=== PATIENT | female | born 1960 | race African-American/Black ===

== ENCOUNTER 2017-03-29 09:03 | Emergency (ER) | payer OTHER ==
[2017-03-29] MEDS ORDERED: DEXAMETHASONE SOD PHOSPHATE 10 MG/1 ML VIAL ONE (09:16)
[2017-03-29] MEDS ORDERED: ALBUTEROL SO4 2.5/IPRATROPIUM 0.5 INH SOL 3 ML VIAL.NEB. NEB ONE ×3 (09:17→09:53)
--- NOTE | 2017-03-29 09:36 | PDOC ---
History of Present Illness - General History Source: Patient Exam Limitations: No Limitations - History of Present Illness Initial Comments: 03/29/17 09:43 Patient is a 56 year old female with a significant past medical history of insulin-dependent diabetes, high blood pressure, CHF(intubated x2), asthma, gall bladder CA who presents to the ED via EMS with complaint of shortness of breath. Patient reports cough with white sputum and difficulty breathing for 3 days since she ran out of her asthma medication. Patient states that she takes prednisone 20 mg daily and lasix but she has not taken it for 3 days. She also reports bilateral swelling. Patient was given a nebs, 10mg of decadron and sublingual nitro and nitro patch as per EMS. She denies any fever or chills. PCP - [facility] <Merari Ann - Last Filed: 03/29/17 09:43> <Concetta Gallardo - Last Filed: 03/29/17 11:32> - General Chief Complaint: Respiratory Stated Complaint: DIFFICLTY BREATHING Time Seen by Provider: 03/29/17 09:22 Past History <Merari Ann - Last Filed: 03/29/17 09:43> - Past Medical History Anemia: No Asthma: Yes Cancer: Yes (H/O GALLBLADDER: 2013) Cardiac Disorders: No CVA: No COPD: No Dementia: No Diabetes: Yes GI Disorders: No Disorders: No HTN: Yes Hypercholesterolemia: No Liver Disease: No Suicide Attempt (Hx): No Seizures: No Thyroid Disease: No - Surgical History Abdominal Surgery: Yes Appendectomy: No Cardiac Surgery: No Cholecystectomy: Yes Lung Surgery: No Neurologic Surgery: No Orthopedic Surgery: Yes - Immunization History Immunization Up to Date: Yes - Psycho/Social/Smoking Cessation Hx Anxiety: Yes Suicidal Ideation: No Smoking Status: Yes Smoking History: Never smoked Number of Cigarettes Smoked Daily: 0 Hx Alcohol Use: No Drug/Substance Use Hx: No Substance Use Type: None <Concetta Gallardo - Last Filed: 03/29/17 11:32> - Past Medical History Allergies/Adverse Reactions: Allergies Allergy/AdvReac Type Severity Reaction Status Date / Time No Known Allergies Allergy Verified 06/05/14 17:41 Home Medications: Ambulatory Orders Metformin HCl [Glucophage] 1,000 mg PO BID 11/10/13 Omeprazole [Prilosec (RX)] 20 mg PO DAILY 11/10/13 Albuterol 0.083% Nebulizer Chica [Ventolin 0.083% Nebulizer Soln -] 1 neb NEB Q6H #100 vial 11/05/14 Albuterol Sulfate Inhaler - [Ventolin HFA Inhaler -] 1 - 2 inh PO Q4H PRN #1 inhaler 11/05/14 Amlodipine Besylate [Norvasc -] 5 mg PO DAILY #30 tablet 11/05/14 Furosemide [Lasix -] 40 mg PO DAILY 11/05/14 Prednisone [Deltasone -] 10 mg PO DAILY #20 tablet 11/05/14 Salmeterol/Fluticasone [Advair 100Mcg/50Mcg -] 1 inh IH DAILY #1 inhaler Albuterol 0.083% Nebulizer Chica [Ventolin 0.083% Nebulizer Soln -] 1 neb NEB Q6H PRN #100 vial 03/29/17 Amlodipine Besylate 5 mg PO DAILY #14 tablet 03/29/17 Furosemide [Lasix] 20 mg PO BID #14 tablet MDD 2 03/29/17 Hydrochlorothiazide 25 mg PO DAILY #14 tablet 03/29/17 Insulin Glargine,Hum.rec.anlog [Lantus Solostar PEN -] 40 units SQ HS #14 pen Metformin HCl [Glucophage] 1,000 mg PO BID #28 tablet 03/29/17 Prednisone [Deltasone -] 40 mg PO DAILY #7 tablet 03/29/17 Review of Systems - Review of Systems Able to Perform ROS?: Yes Comments:: 03/29/17 09:44 GENERAL/CONSTITUTIONAL: No fever or chills. No weakness. HEAD, EYES, EARS, NOSE AND THROAT: No change in vision. No ear pain or discharge. No sore throat. GASTROINTESTINAL: No nausea, vomiting, diarrhea or constipation. GENITOURINARY: No dysuria, frequency, or change in urination. CARDIOVASCULAR: No chest pain. RESPIRATORY: +cough, +SOB No wheezing, or hemoptysis. MUSCULOSKELETAL:+bilateral LE edema. No joint or muscle pain. No neck or back pain. SKIN: No rash NEUROLOGIC: No headache, vertigo, loss of consciousness, or change in strength/ sensation. ENDOCRINE: No increased thirst. No abnormal weight change. HEMATOLOGIC/LYMPHATIC: No anemia, easy bleeding, or history of blood clots. ALLERGIC/IMMUNOLOGIC: No hives or skin allergy. <Merari Ann - Last Filed: 03/29/17 09:43> *Physical Exam - Physical Exam Comments: 03/29/17 09:45 GENERAL: Awake, alert, and fully oriented, in no acute distress HEAD: No signs of trauma EYES: PERRLA, EOMI, sclera anicteric, conjunctiva clear ENT: Auricles normal inspection, nares patent, Moist mucosa NECK: Normal ROM, supple, no lymphadenopathy, JVD, or masses LUNGS: (+)Bilateral wheezing throughout , normal effort. No crackles HEART: Regular rate and rhythm, normal S1 and S2, no murmurs, rubs or gallops ABDOMEN: Soft, nontender, normoactive bowel sounds. No guarding, no rebound. No masses EXTREMITIES: (+)bilateral lower extremity nonpitting edema. Normal range of motion. No clubbing or cyanosis. No cords, erythema, or tenderness NEUROLOGICAL: Normal speech SKIN: Warm, Dry, normal turgor, no rashes or lesions noted. <Merari Ann - Last Filed: 03/29/17 09:43> ED Treatment Course - LABORATORY CBC & Chemistry Diagram: 03/29/17 09:30 03/29/17 09:30 <Concetta Gallardo - Last Filed: 03/29/17 11:32> Medical Decision Making - Medical Decision Making 03/29/17 09:32 56 yo F with h/o asthma CHF HTH, ran out of meds 3 days ago, here wtih c/o sob. was picke up by EMS given nebs , decadron 10mg, sublingual nitro, and nitro patch. c/o sob wheezing and sob. states she has had to have thoracentesis in the past. no f/c. cough productive white phlegm. no n/v did have chest pressure this am.. also c/o worseign bilat leg swelling recently, improved with leg elevation. on exam awake lungs bilat wheezing throught, normal effort. heart RRR no mrg. abd soft NT. ext nonpitting edema bilat. 2+ dp/ pt. differential : pna, chf, acs, asthma exacerbation. plan ekg labs cxr negs steroids already given. asa. possible lasix. admit estelita <Concetta Gallardo - Last Filed: 03/29/17 11:32> *DC/Admit/Observation/Transfer - Attestations Scribe Attestion: 03/29/17 09:47 Documentation prepared by JEANINE Khanna, acting as medical secretary teacher for Concetta Gallardo MD. <Merari Ann - Last Filed: 03/29/17 09:43> - Discharge Dispostion Admit: No <Concetta Gallardo - Last Filed: 03/29/17 11:32> Diagnosis at time of Disposition: Shortness of breath, Acute kidney injury - Discharge Dispostion Disposition: HOME Condition at time of disposition: Guarded - Prescriptions Prescriptions: Amlodipine Besylate 5 mg PO DAILY #14 tablet Prednisone [Deltasone -] 40 mg PO DAILY #7 tablet Metformin HCl [Glucophage] 1,000 mg PO BID #28 tablet Hydrochlorothiazide 25 mg PO DAILY #14 tablet Insulin Glargine,Hum.rec.anlog [Lantus Solostar PEN -] 40 units SQ HS #14 pen Furosemide [Lasix] 20 mg PO BID #14 tablet MDD 2 Albuterol 0.083% Nebulizer Chica [Ventolin 0.083% Nebulizer Soln -] 1 neb NEB Q6H PRN #100 vial PRN Reason: Wheezing - Referrals Referrals: Francois Elder [Primary Care Provider] - - Patient Instructions Printed Discharge Instructions: Asthma -- Adult Additional Instructions: understand you are leaving against medical advice. you are encouraged to return for worsenign symtpoms you need to take steroids prednisone 40 mg daily starting tomorrow for 7 days. then you will resume your baseline 20 mg daily. you should use albuterol 2 puffs every 4 hours as needed for wheezing or cough. follow up wtih your regular doctor.
[2017-03-29] MEDS ORDERED: ASPIRIN 81 MG CHEWABLE TABLETS PO ONE (09:37)
[2017-03-29 09:47] VITALS: TEMP 98; BMI 32.9
[2017-03-29] MEDS ORDERED: ASPIRIN 81 MG CHEWABLE TABLETS ONE (09:51)
[2017-03-29 09:56] LABS: BASOPHIL 1.2 % (0-2.0); EOSINOPHIL 12.2 % (0-4.5); MCH 28.2 pg (25.7-33.7); MCHC 32.6 g/dl (32.0-36.0); MEAN CELL VOLUME 86.4 fl (80-96); MEAN PLT VOLUME 9.6 fl (7.5-11.1); NEUTROPHILS 63.2 % (42.8-82.8); PLATELET COUNT 63 K/MM3 (134-434); RDW 16.2 % (11.6-15.6); WHITE BLOOD COUNT 6.7 K/mm3 (4.0-10.0)
[2017-03-29 10:20] LABS: ALBUMIN 1.9 g/dl (3.4-5.0); ANION GAP 7 (8-16); CALCIUM 8.1 mg/dL (8.5-10.1); CO2 25 mmol/L (21-32); CREATININE 2.8 mg/dL (0.55-1.02); GLUCOSE,RANDOM 107 mg/dL (74-106); SGOT/AST 46 U/L (15-37); SGPT/ALT 30 U/L (12-78); TOT PROT 6.1 g/dl (6.4-8.2)
[2017-03-29 10:22] LABS: TROPONIN I 0.11 ng/ml (0.00-0.05)
[2017-03-29 10:29] LABS: ALK PHOS 185 U/L (45-117)
[2017-03-29 10:31] LABS: BILIRUBIN,TOTAL 0.4 mg/dL (0.2-1.0)
[2017-03-29] MEDS ORDERED: FUROSEMIDE 40 MG/4 ML INJECTABLE VIAL IVPUSH ONE ×2 (10:40→10:41)
[2017-03-29] MEDS ORDERED: FUROSEMIDE 40 MG/4 ML INJECTABLE VIAL ONE (10:58)
[2017-03-29 11:06] VITALS: BP 169/86; PULSE 71
[2017-03-29] MEDS ORDERED: amLODIPine BESYLATE 5 MG TABLET (FP) PO ONE (11:13)
[2017-03-29] MEDS ORDERED: HYDROCHLOROTHIAZIDE 25 MG TABLET (FP) PO ONE (11:14)
[2017-03-29] MEDS ORDERED: amLODIPine BESYLATE 5 MG TABLET (FP) ONE (11:20)
[2017-03-29] MEDS ORDERED: HYDROCHLOROTHIAZIDE 25 MG TABLET (FP) ONE (11:21)
--- NOTE | 2017-04-04 16:39 | EKG ---
Test Reason : Blood Pressure : / mmHG Vent. Rate : 068 BPM Atrial Rate : 068 BPM P-R Int : 188 ms QRS Dur : 088 ms QT Int : 412 ms P-R-T Axes : 019 -24 087 degrees QTc Int : 438 ms SINUS RHYTHM WTHFREQUENT SUPRAVENTRICULAR PREMATURE BEATS LAD BORDERLINE 1ST DEGREE AV BLOCK NONSPECIFIC ST AND T WAVE ABNORMALITY ABNORMAL ECG WHEN COMPARED WITH ECG OF 05-JUN-2014 APPEARANCE OF SPBs CORELATE CLINICALLY Confirmed by GAVIN LOMAX MD ([id number]) on 04/04/2017 4:38:37 PM Referred By: Confirmed By:GAVIN LOMAX MD
== END 2017-03-29 11:33 | disposition home or self-care (01) ==
LOC: JER 09:03
PROC: 3E0F7GC Introduction of Other Therapeutic Substance into Respiratory Tract, Via Natural or Artificial Opening (ICD-10-PCS; principal; 2017-03-29)
PROC: 3E033GC Introduction of Other Therapeutic Substance into Peripheral Vein, Percutaneous Approach (ICD-10-PCS; 2017-03-29)
DX: S37.009A Unspecified injury of unspecified kidney, initial encounter (principal); R06.02 Shortness of breath; I10 Essential (primary) hypertension; J45.909 Unspecified asthma, uncomplicated; E11.9 Type 2 diabetes mellitus without complications; F41.9 Anxiety disorder, unspecified; X58.XXXA Exposure to other specified factors, initial encounter; Y93.9 Activity, unspecified; Y92.9 Unspecified place or not applicable
CPT/HCPCS: 36415; 71010-TC; 80053; 82550; 83880; 84484; 85025; 93005; 93010; 94640; 96374; 99284-25

== ENCOUNTER 2017-10-03 21:53 | Inpatient (IN) | payer OTHER ==
--- NOTE | 2017-10-03 22:01 | PDOC ---
Rapid Medical Evaluation Chief Complaint: Shortness of Breath Time Seen by Provider: 10/03/17 21:57 Medical Evaluation: Allergies Allergy/AdvReac Type Severity Reaction Status Date / Time No Known Allergies Allergy Verified 10/03/17 21:56 10/03/17 21:58 EMS treatment ; 10 mg Deacdron, duoneb x 1 CC; progressive worsening respiratory distress and wheezing. PE; patient alert Wheezing. + shortness of breath PMHX; CHF, Hypertension, asthma, 2 intubation for asthma Plan: patient to ED for management of respiratory distress.
[2017-10-03] MEDS ORDERED: methylPREDNISolone NA SUCC 125 MG/2 ML VIAL IVPB ONE (22:17)
--- NOTE | 2017-10-03 22:17 | PDOC ---
History of Present Illness - History of Present Illness Initial Comments: 10/03/17 22:43 The patient is a 57 year old female who was BIBA, with a significant past medical history of Cholecystectomy, chemotherapy for gallbladder cancer. thoracentesis for large pleural effusions, asthma, diabetes, HTN, and CHF who presents to the ED for worsening breathing for 1 week. She denies recent fevers, chills, headache or dizziness. She denies recent nausea, vomit, diarrhea or constipation. She denies recent dysuria, frequency, urgency or hematuria. She denies recent chest pain. Allergies: NKA Past surgical history: Cholecystectomy, Thoracentesis for large pleural effusions Social history: Nonsmoker. Denies EtOH use and recreational drug use. Primary Care Physician: Roxana Roberts <Gaby Jane - Last Filed: 10/03/17 23:09> <Zaida Buitrago - Last Filed: 10/04/17 02:06> - General Chief Complaint: Shortness of Breath Stated Complaint: SHORTNESS OF BREATH Time Seen by Provider: 10/03/17 21:57 Past History <Gaby Jane - Last Filed: 10/03/17 23:09> - Past Medical History Anemia: No Asthma: Yes Cancer: Yes (H/O GALLBLADDER: 2013) Cardiac Disorders: No CVA: No COPD: No Dementia: No Diabetes: Yes GI Disorders: No Disorders: No HTN: Yes Hypercholesterolemia: No Liver Disease: No Seizures: No Thyroid Disease: No - Surgical History Abdominal Surgery: Yes Appendectomy: No Cardiac Surgery: No Cholecystectomy: Yes Lung Surgery: No Neurologic Surgery: No Orthopedic Surgery: Yes - Immunization History Immunization Up to Date: Yes - Suicide/Smoking/Psychosocial Hx Smoking Status: Yes Smoking History: Never smoked Have you smoked in the past 12 months: No Number of Cigarettes Smoked Daily: 0 Hx Alcohol Use: No Drug/Substance Use Hx: No Substance Use Type: None <Zaida Buitrago - Last Filed: 10/04/17 02:06> - Past Medical History Allergies/Adverse Reactions: Allergies Allergy/AdvReac Type Severity Reaction Status Date / Time No Known Allergies Allergy Verified 10/03/17 21:56 Home Medications: Ambulatory Orders Metformin HCl [Glucophage] 1,000 mg PO BID 11/10/13 Omeprazole [Prilosec (RX)] 20 mg PO DAILY 11/10/13 Albuterol 0.083% Nebulizer Chica [Ventolin 0.083% Nebulizer Soln -] 1 neb NEB Q6H #100 vial 11/05/14 Albuterol Sulfate Inhaler - [Ventolin HFA Inhaler -] 1 - 2 inh PO Q4H PRN #1 inhaler 11/05/14 Amlodipine Besylate [Norvasc -] 5 mg PO DAILY #30 tablet 11/05/14 Furosemide [Lasix -] 40 mg PO DAILY 11/05/14 Prednisone [Deltasone -] 10 mg PO DAILY #20 tablet 11/05/14 Salmeterol/Fluticasone [Advair 100Mcg/50Mcg -] 1 inh IH DAILY #1 inhaler Albuterol 0.083% Nebulizer Chica [Ventolin 0.083% Nebulizer Soln -] 1 neb NEB Q6H PRN #100 vial 03/29/17 Amlodipine Besylate 5 mg PO DAILY #14 tablet 03/29/17 Furosemide [Lasix] 20 mg PO BID #14 tablet MDD 2 03/29/17 Hydrochlorothiazide 25 mg PO DAILY #14 tablet 03/29/17 Insulin Glargine,Hum.rec.anlog [Lantus Solostar PEN -] 40 units SQ HS #14 pen Metformin HCl [Glucophage] 1,000 mg PO BID #28 tablet 03/29/17 Prednisone [Deltasone -] 40 mg PO DAILY #7 tablet 03/29/17 Review of Systems - Review of Systems Comments:: 10/03/17 22:59 CONSTITUTIONAL: Absent: fever, no chills, no fatigue EYES: Absent: visual changes ENT: Absent: ear pain, no sore throat CARDIOVASCULAR: Absent: chest pain, no palpitations RESPIRATORY: Presnet: SOB, wheezing, cough. GI: Absent: abdominal pain, no nausea, no vomiting, no constipation, no diarrhea GENITOURINARY: Absent: dysuria, no frequency, no hematuria MUSCULOSKELETAL: Absent: back pain, no arthralgia, no myalgia SKIN: Absent: rash NEURO: Absent: headache <Gaby Jane - Last Filed: 10/03/17 23:09> *Physical Exam - Vital Signs Last Vital Signs Temp Pulse Resp BP Pulse Ox 98.5 F 85 24 137/70 99 10/03/17 21:56 10/03/17 21:56 10/03/17 21:56 10/03/17 21:56 10/03/17 21:56 - Physical Exam Comments: 10/03/17 23:00 Scattered wheexing. Moving air weel No piting edema, no chronic venous satis Moving all extremities. Able to participate in ROS. Increased coughing adn wheeezing if 1 weel GENERAL: Well-appearing, well-nourished. No apparent distress. HEENT: Normocephalic, atraumatic. PERRL, EOM intact. CARDIOVASCULAR: Normal S1, S2. Regular rate and rhythm. PULMONARY: Scattered wheezing. Moving air well. Increased coughing and wheezing. ABDOMEN: Soft, non-distended, non-tender. EXTREMITIES: Moving all extremities. Normal ROM in all four extremities. No gross deformities. SKIN: No pitting edema. No chronic venous statis. Warm, dry. No rash NEUROLOGICAL: No focal neurological deficits. <Gaby Jane - Last Filed: 10/03/17 23:09> - Vital Signs Last Vital Signs Temp Pulse Resp BP Pulse Ox 98.5 F 85 24 137/70 99 10/03/17 21:56 10/03/17 21:56 10/03/17 21:56 10/03/17 21:56 10/03/17 21:56 <Zaida Buitrago - Last Filed: 10/04/17 02:06> ED Treatment Course - LABORATORY CBC & Chemistry Diagram: 10/03/17 23:12 10/03/17 23:12 <Zaida Buitrago - Last Filed: 10/04/17 02:06> *DC/Admit/Observation/Transfer - Attestations Scribe Attestion: 10/03/17 23:10 Documentation prepared by Gaby Jane, acting as medical assistant dermatology for Zaida Buitrago MD. <Gaby Jane - Last Filed: 10/03/17 23:09> - Discharge Dispostion Admit: Yes <Zaida Buitrago - Last Filed: 10/04/17 02:06> Diagnosis at time of Disposition: Shortness of breath Asthma exacerbation Qualifiers: Asthma severity: moderate Asthma persistence: persistent Qualified Code(s): J45.41 - Moderate persistent asthma with (acute) exacerbation Chronic renal insufficiency Qualifiers: Chronic kidney disease stage: unspecified stage Qualified Code(s): N18.9 - Chronic kidney disease, unspecified
[2017-10-03] MEDS: ALBUTEROL SO4 0.083% IH SOL 2.5 MG/3 ML VIAL.NEB. NEB PRN ×2 (22:40→23:29)
[2017-10-03] MEDS ORDERED: methylPREDNISolone NA SUCC 125 MG/2 ML VIAL ONE (22:56)
[2017-10-03 23:25] LABS: BASO % 0.6 % (0-2.0); EOS % 1.5 % (0-4.5); HEMATOCRIT 25.6 % (32.4-45.2); HEMOGLOBIN 8.4 GM/dL (10.7-15.3); LYMPH % 12.3 % (8-40); MCH 27.3 pg (25.7-33.7); MCHC 32.7 g/dl (32.0-36.0); MEAN CELL VOLUME 83.4 fl (80-96); MEAN PLT VOLUME 9.3 fl (7.5-11.1); MONO % 6.1 % (3.8-10.2); NEUT % 79.5 % (42.8-82.8); PLATELET COUNT 66 K/MM3 (134-434); RBC 3.06 M/mm3 (3.60-5.2); RDW 18.2 % (11.6-15.6); WHITE BLOOD COUNT 4.8 K/mm3 (4.0-10.0)
[2017-10-03] MEDS ORDERED: ALBUTEROL SO4 0.083% IH SOL 2.5 MG/3 ML VIAL.NEB. NEB ONE (23:26)
[2017-10-03 23:38] LABS: INR 0.99 (0.82-1.09); PROTHROMBIN TIME (PATIENT) 11.2 SEC (9.98-11.88)
[2017-10-03 23:49] LABS: ALBUMIN 2.2 g/dl (3.4-5.0); ALK PHOS 240 U/L (45-117); ANION GAP 12 (8-16); BILIRUBIN,TOTAL 0.4 mg/dL (0.2-1.0); BLOOD UREA NITROGEN 50 mg/dL (7-18); CALCIUM 8.3 mg/dL (8.5-10.1); CHLORIDE 107 mmol/L (98-107); CO2 23 mmol/L (21-32); CREATININE 3.8 mg/dL (0.55-1.02); GLUCOSE,RANDOM 150 mg/dL (74-106); POTASSIUM 3.8 mmol/L (3.5-5.1); SGOT/AST 56 U/L (15-37); SGPT/ALT 31 U/L (12-78); SODIUM 142 mmol/L (136-145); TOT PROT 6.7 g/dl (6.4-8.2)
[2017-10-04] MEDS: ALBUTEROL SO4 0.083% IH SOL 2.5 MG/3 ML VIAL.NEB. NEB PRN (00:42)
[2017-10-04] MEDS ORDERED: ALBUTEROL SO4 0.083% IH SOL 2.5 MG/3 ML VIAL.NEB. NEB ONE ×2 (02:01→02:06)
[2017-10-04] MEDS ORDERED: FUROSEMIDE 40 MG/4 ML INJECTABLE VIAL IVPUSH ONE (02:03)
[2017-10-04] MEDS ORDERED: FUROSEMIDE 40 MG/4 ML INJECTABLE VIAL ONE (02:06)
--- NOTE | 2017-10-04 02:07 | PN ---
Teaching Attending Note Name of Resident: Raphael Tom ATTENDING PHYSICIAN STATEMENT I saw and evaluated the patient. I reviewed the resident's note and discussed the case with the resident. I agree with the resident's findings and plan as documented. SUBJECTIVE: 57 F with Pmhx. of Choleycystectomy, Gallbladder ca (2013), Asthma, DM, thoracocentesis for plueral effusions, DM, CHF, and HTN who presents with shortness of breath X1 week. No fevers or chills. No chest pain or pressure. States she has been hospitilized 6 times in the past year for asthma. She has never seen a atomic spectroscopist. States she has woken up several times a night this week to use her inhaler. Denies any chest pain or pressure. States she has had decreased Po intake due to not feeling well. OBJECTIVE: Physical: VS: Vital Signs Period Temp Pulse Resp BP Sys/Jin Pulse Ox Last 24 Hr 98.5 F 85-98 24 137/70 98-99 GEN: NAD, resting in bed, able to speak full sentences HEENT: NCAT PERRL, throat without erythema or exudates CARD: RRR S1, S2 RESP: Bilateral coarse expiratory wheezing all amos ABD: BS X4, NTD to palpation EXT: - C/C/E CBCD WBC 4.8 K/mm3 (4.0-10.0) 10/03/17 23:12 RBC 3.06 M/mm3 (3.60-5.2) L 10/03/17 23:12 Hgb 8.4 GM/dL (10.7-15.3) L D 10/03/17 23:12 Hct 25.6 % (32.4-45.2) L 10/03/17 23:12 MCV 83.4 fl (80-96) 10/03/17 23:12 MCHC 32.7 g/dl (32.0-36.0) 10/03/17 23:12 RDW 18.2 % (11.6-15.6) H D 10/03/17 23:12 Plt Count 66 K/MM3 (134-434) L 10/03/17 23:12 MPV 9.3 fl (7.5-11.1) 10/03/17 23:12 CMP Sodium 142 mmol/L (136-145) 10/03/17 23:12 Potassium 3.8 mmol/L (3.5-5.1) 10/03/17 23:12 Chloride 107 mmol/L (98-107) 10/03/17 23:12 Carbon Dioxide 23 mmol/L (21-32) 10/03/17 23:12 Anion Gap 12 (8-16) 10/03/17 23:12 BUN 50 mg/dL (7-18) H D 10/03/17 23:12 Creatinine 3.8 mg/dL (0.55-1.02) H D 10/03/17 23:12 Creat Clearance w eGFR 12.33 (>60) 10/03/17 23:12 Random Glucose 150 mg/dL (74-106) H D 10/03/17 23:12 Calcium 8.3 mg/dL (8.5-10.1) L 10/03/17 23:12 Total Bilirubin 0.4 mg/dL (0.2-1.0) 10/03/17 23:12 AST 56 U/L (15-37) H D 10/03/17 23:12 ALT 31 U/L (12-78) 10/03/17 23:12 Alkaline Phosphatase 240 U/L (45-117) H D 10/03/17 23:12 Total Protein 6.7 g/dl (6.4-8.2) 10/03/17 23:12 Albumin 2.2 g/dl (3.4-5.0) L 10/03/17 23:12 CARDIAC ENZYMES Creatine Kinase 205 IU/L (26-192) H 10/03/17 23:12 Troponin I 0.08 ng/ml (0.00-0.05) H 10/03/17 23:12 EKG: PENDING CXR: Ambulatory Orders Metformin HCl [Glucophage] 1,000 mg PO BID 11/10/13 Omeprazole [Prilosec (RX)] 20 mg PO DAILY 11/10/13 Albuterol 0.083% Nebulizer Chica [Ventolin 0.083% Nebulizer Soln -] 1 neb NEB Q6H #100 vial 11/05/14 Albuterol Sulfate Inhaler - [Ventolin HFA Inhaler -] 1 - 2 inh PO Q4H PRN #1 inhaler 11/05/14 Amlodipine Besylate [Norvasc -] 5 mg PO DAILY #30 tablet 11/05/14 Furosemide [Lasix -] 40 mg PO DAILY 11/05/14 Prednisone [Deltasone -] 10 mg PO DAILY #20 tablet 11/05/14 Salmeterol/Fluticasone [Advair 100Mcg/50Mcg -] 1 inh IH DAILY #1 inhaler Albuterol 0.083% Nebulizer Chica [Ventolin 0.083% Nebulizer Soln -] 1 neb NEB Q6H PRN #100 vial 03/29/17 Amlodipine Besylate 5 mg PO DAILY #14 tablet 03/29/17 Furosemide [Lasix] 20 mg PO BID #14 tablet MDD 2 03/29/17 Hydrochlorothiazide 25 mg PO DAILY #14 tablet 03/29/17 Insulin Glargine,Hum.rec.anlog [Lantus Solostar PEN -] 40 units SQ HS #14 pen Metformin HCl [Glucophage] 1,000 mg PO BID #28 tablet 03/29/17 Prednisone [Deltasone -] 40 mg PO DAILY #7 tablet 03/29/17 ASSESSMENT AND PLAN: 57 F with Pmhx. of Choleycystectomy, Gallbladder ca (2013), Asthma, DM, thoracocentesis for plueral effusions, DM, CHF, and HTN who presents with shortness of breath 1.) Acute Exacerbation of Asthma - ABG - Duonebs Atc/PRN - Solu-Medrol - PEFR - Magnesium - Advair 2.) DM - FS - RIASS 3.) CHF - Lasix given in ED - Not Clinically Overloaded - Would hold further diuresis in light of renal failure 4.) ARF on CKD - U Lytes - Stop Metformin/HcTZ - Most likely pre-renal - If no improvement can give fluid trial 5.) HTN - Hold HCtz - C/W Amlodipine 6.) Normocytic Anemia - FE studies - B12/Folate - Outpt. [facility], including EPO level 7.) Thrombocytopenia - Present since March - Trend 8.) Dvt ppx - Scds Place in Obs
--- NOTE | 2017-10-04 02:30 | HP ---
CHIEF COMPLAINT: SOB, cough x 1 week PCP: Unknown HISTORY OF PRESENT ILLNESS: 57 yo woman w/ pmh of asthma (6-7 exacerbations/year), DM2, CHF, HTN and pleural effusion (drained w/ thoracentesis) who was BIBEMS due to one week of worsening SOB, cough and wheezing, now with chest tightness and diffuse chest wall pain worsened by coughing. Pt states she began experiencing productive cough (white sputum), SOB and worsening of baseline wheezing one week ago. She states she wakes up every night with SOB and that she has been coughing so much that she has been experiencing multiple episodes of emesis over the last three days prior to admission. She states that yesterday and today, she feels like her "chest is caving in" and endorses anterior diffuse CP and back pain, worsened by coughing and deep inspiration, which prompted her to call the ambulance. She also endorses recent diarrhea and subjective chills for the past few days. She denies fever, [place]/dizziness, rashes, dysuria, LE edema, claudications or new neuro symptoms. She has very limited exercise tolerance and cannot walk one block w/o becoming SOB. Denies recent travel, pets or occupational exposures. Pt diagnosed w/ asthma as child and has been on lifelong medication for management, currently taking albuterol nebs and advair at home for management. Pt w/ multiple admissions for asthma exacerbation each year (6-7 times) and two prior intubations due to respiratory failure. She does not currently follow with a fagot heater helper and her PCP is Dr. Okeefe at [address] [facility]. ER course was notable for: (1)Tro 0.08, BNP 724 (2)BUN/Cr 50/3.8 (3)Received Albuterol x2, Medrol 125mg IV, Lasix 40mg IV Recent Travel: None PAST MEDICAL HISTORY: HTN CHF DM2 Pleural effusions Asthma GB Cancer PAST SURGICAL HISTORY: GB removal Thoracentesis for large pleural effusion Social History: Smoking: Never Alcohol: Denies Drugs: Denies Family History: 4/6 siblings with asthma Allergies No Known Allergies Allergy (Verified 10/03/17 21:56) HOME MEDICATIONS: Home Medications Medication Instructions Recorded Metformin HCl [Glucophage] 1,000 mg PO BID 11/10/13 Omeprazole [Prilosec (RX)] 20 mg PO DAILY 11/10/13 Albuterol 0.083% Nebulizer [place] 1 neb NEB Q6H #100 vial 11/05/14 [Ventolin 0.083% Nebulizer Soln -] Albuterol Sulfate Inhaler - 1 - 2 inh PO Q4H PRN #1 inhaler 11/05/14 [Ventolin HFA Inhaler -] Amlodipine Besylate [Norvasc -] 5 mg PO DAILY #30 tablet 11/05/14 Furosemide [Lasix -] 40 mg PO DAILY 11/05/14 Prednisone [Deltasone -] 10 mg PO DAILY #20 tablet 11/05/14 Salmeterol/Fluticasone [Advair 1 inh IH DAILY #1 inhaler 11/05/14 100Mcg/50Mcg -] Albuterol 0.083% Nebulizer [place] 1 neb NEB Q6H PRN #100 vial 03/29/17 [Ventolin 0.083% Nebulizer Soln -] Amlodipine Besylate 5 mg PO DAILY #14 tablet 03/29/17 Furosemide [Lasix] 20 mg PO BID #14 tablet MDD 2 03/29/17 Hydrochlorothiazide 25 mg PO DAILY #14 tablet 03/29/17 Insulin Glargine,Hum.rec.anlog 40 units SQ HS #14 pen 03/29/17 [Lantus Solostar PEN -] Metformin HCl [Glucophage] 1,000 mg PO BID #28 tablet 03/29/17 Prednisone [Deltasone -] 40 mg PO DAILY #7 tablet 03/29/17 REVIEW OF SYSTEMS CONSTITUTIONAL: +chills, decreased PO intake for 3 days Absent: fever, diaphoresis, generalized weakness, malaise, loss of appetite, weight change HEENT: Absent: rhinorrhea, nasal congestion, throat pain, throat swelling, difficulty swallowing, mouth swelling, ear pain, eye pain, visual changes CARDIOVASCULAR: Absent: chest pain, syncope, palpitations, irregular heart rate, lightheadedness , peripheral edema RESPIRATORY: +SOB, cough, wheezing, dyspnea with exertion over last week; orthopnea at baseline Absent: stridor, hemoptysis GASTROINTESTINAL: nausea, vomiting, diarrhea for past 3 days Absent: abdominal pain, abdominal distension, constipation, melena, hematochezia GENITOURINARY: Absent: dysuria, frequency, urgency, hesitancy, hematuria, flank pain, genital pain MUSCULOSKELETAL: Absent: myalgia, arthralgia, joint swelling, back pain, neck pain SKIN: Absent: rash, itching, pallor HEMATOLOGIC/IMMUNOLOGIC: Absent: easy bleeding, easy bruising, lymphadenopathy, frequent infections ENDOCRINE: Absent: unexplained weight gain, unexplained weight loss, heat intolerance, cold intolerance NEUROLOGIC: Absent: headache, focal weakness or paresthesias, dizziness, unsteady gait, seizure, mental status changes, bladder or bowel incontinence PSYCHIATRIC: Absent: anxiety, depression, suicidal or homicidal ideation, hallucinations. PHYSICAL EXAMINATION Vital Signs - 24 hr 10/03/17 10/03/17 21:56 23:44 Temperature 98.5 F Pulse Rate 85 98 H Respiratory 24 Rate Blood Pressure 137/70 O2 Sat by Pulse 99 98 Oximetry (%) GENERAL: Awake, alert, and fully oriented. Mild respiratory distress, unable to speak in full sentences HEAD: Normal with no signs of trauma. EYES: Pupils equal, round and reactive to light, extraocular movements intact, sclera anicteric, conjunctiva clear. No lid lag. EARS, NOSE, THROAT: Ears normal, nares patent, oropharynx clear without exudates. Moist mucous membranes. NECK: Normal range of motion, supple without lymphadenopathy, JVD, or masses. LUNGS: Coarse breath sounds BL, diffusely. BL wheezing across all lung amos, L >R. No crackles or rhonchi noted. Moving air well. HEART: Difficult to appreciate given coarse breath sounds. Regular rate and rhythm, normal S1 and S2 without murmur, rub or gallop. ABDOMEN: Soft, nontender, not distended, normoactive bowel sounds, no guarding, no rebound, no masses. No hepatomegaly or splenomegaly. MUSCULOSKELETAL: Normal range of motion at all joints. No bony deformities or tenderness. No CVA tenderness. UPPER EXTREMITIES: 2+ pulses, warm, well-perfused. No cyanosis. No clubbing. No peripheral edema. LOWER EXTREMITIES: 2+ pulses, warm, well-perfused. No calf tenderness. No peripheral edema. NEUROLOGICAL: Cranial nerves II-XII intact. Normal speech. Gait not evaluated. 5/5 strength and preserved sensation to light touch in all extremities. PSYCHIATRIC: Cooperative, good spirits. Good eye contact. Appropriate mood and affect. Pt slightly somnolent with delayed responses intermittently. SKIN: Warm, dry, normal turgor, no rashes or lesions noted, normal capillary refill. Laboratory Results - last 24 hr CBC, BMP 10/03/17 23:12 10/03/17 23:12 10/03/17 10/03/17 10/03/17 23:12 23:12 23:12 WBC 4.8 RBC 3.06 L Hgb 8.4 L D Hct 25.6 L MCV 83.4 MCH 27.3 MCHC 32.7 RDW 18.2 H D Plt Count 66 L MPV 9.3 Neutrophils % 79.5 D Lymphocytes % 12.3 D Monocytes % 6.1 Eosinophils % 1.5 D Basophils % 0.6 PT with INR INR Sodium 142 Potassium 3.8 Chloride 107 Carbon Dioxide 23 Anion Gap 12 BUN 50 H D Creatinine 3.8 H D Creat Clearance w eGFR 12.33 Random Glucose 150 H D Calcium 8.3 L Total Bilirubin 0.4 AST 56 H D ALT 31 Alkaline Phosphatase 240 H D Creatine Kinase 205 H Creatine Kinase Index 1.5 CK-MB (CK-2) 3.166 Troponin I 0.08 H B-Natriuretic Peptide Total Protein 6.7 Albumin 2.2 L 10/03/17 10/03/17 23:12 23:12 WBC RBC Hgb Hct MCV MCH MCHC RDW Plt Count MPV Neutrophils % Lymphocytes % Monocytes % Eosinophils % Basophils % PT with INR 11.20 INR 0.99 Sodium Potassium Chloride Carbon Dioxide Anion Gap BUN Creatinine Creat Clearance w eGFR Random Glucose Calcium Total Bilirubin AST ALT Alkaline Phosphatase Creatine Kinase Creatine Kinase Index CK-MB (CK-2) Troponin I B-Natriuretic Peptide 724.64 H Total Protein Albumin No micro EKG: Pending CXR: Bl vascular congestion. BL perihilar bronchiectasis. Trace pleural effusion on R CP angle. Borderline cardiomegaly. No evidence of focal consolidations or pneumothoraces. ASSESSMENT/PLAN: 57 yo woman w/ pmh of asthma (6-7 exacerbations/year), DM2, CHF, HTN and pleural effusion (drained w/ thoracentesis) who was BIBEMS due to one week of worsening SOB, cough and wheezing, now with chest tightness and diffuse chest wall pain worsened by coughing. Pt likely suffering from acute on chronic asthma exacerbation and will benefit from inpatient admission for tx w/ IV steroids, ventolin nebs, MgSO4 and O2 support. Pulm consulted. #Acute on chronic asthma exacerbation - Satting low 82-89% on room air; BL coarse breath sounds, wheezing; Unable to speak in full sentences due to dyspnea ; pt takes ventolin, advair at home - Ventolin Nebs Q4h PRN - Duonebs QIDR - Vitals Q1H - Pulm consulted - Solumedrol 40mg Q6h - Start home advair - MgSO4 2g IV stat - 2L O2 NC. Titrate to >97% sat - Flu swab - Stat ABG - Peak flow measurement - Will require outpt f/u with fagot heater helper - Monitor for signs of respiratory failure #RODRIGUEZ on CKD- 2.8 on last admission 04/10; BUN/Cr 50/3.8 during current admission ; likely pre-renal due to decreased PO intake/recent diarrhea - Trend Cr - Daily BMPs - Renal U/S - Urine Lytes - Avoid nephrotoxic agents - Hold metformin/hctz - Can give fluid trial if no improvement #Elevated Trops - Trop I 0.08 on this admission; Likely demand ischemia secondary to elevated pulm pressures - Trend trops - f/u ECHO - Serial EKGs - Monitor for worsening chest pain #DM2 - per pt, on metformin/lantus at home - Confirm home regimen in AM - Hold metformin in setting of RODRIGUEZ - c/w home lantus - BGM q4h - ISS #CHF - BNP 724; prior BNP 250~ on 04/10; pt does not follow with virtual assistant for advertisers; not clinically overloaded - Echo - Monitor fluid status - Avoid IVFs - Received lasix 40mg in ED, not clinically overloaded. - Hold lasix in settings of RODRIGUEZ #HTN - Hold all diuretics in setting of RODRIGUEZ - C/W amlodipine # Normocytic anemia - Hgb 8.4 on admission; 9.8 in 04/10 - iron studies - B12/folate - Will require outpt w/u of anemia PPX Heparin Subq, SCDs PPI FEN PO hydration, <2L/day Daily BMPs, monitor elevated Cr Sodium-restricted diet (<2g /day) Plan dicussed with attending, Dr. Damion Tom, PGY1 Visit type - Emergency Visit Emergency Visit: Yes ED Registration Date: 10/04/17 Care time: The patient presented to the Emergency Department on the above date and was hospitalized for further evaluation of their emergent condition. - New Patient This patient is new to me today: Yes Date on this admission: 10/04/17 - Critical Care Critical Care patient: No
[2017-10-04] MEDS ORDERED: MAGNESIUM SULF 50% (8.12 MEQ/2 ML-1 GM VIAL) IVPB ONE (03:23)
[2017-10-04] MEDS ORDERED: ALBUTEROL SO4 0.083% IH SOL 2.5 MG/3 ML VIAL.NEB. NEB PRN (03:28)
[2017-10-04] MEDS ORDERED: methylPREDNISolone NA SUCC 40 MG/1 ML VIAL IVPUSH SCH ×3 (03:45→09:00)
[2017-10-04] MEDS ORDERED: MAGNESIUM SULF 50% (8.12 MEQ/2 ML-1 GM VIAL) ONE (04:28)
[2017-10-04] MEDS ORDERED: HEPARIN NA (PORCINE) 5,000 UNITS/ML 1ML VIAL SQ SCH (06:00)
[2017-10-04] MEDS: INSULIN SLIDING SCALE (NOVOLOG) 1 VIAL SQ SCH ×2 (07:19→14:35)
[2017-10-04 07:55] LABS: BASO % 0.2 % (0-2.0); EOS % 0.1 % (0-4.5); HEMATOCRIT 26.9 % (32.4-45.2); HEMOGLOBIN 8.6 GM/dL (10.7-15.3); LYMPH % 6.1 % (8-40); MCHC 31.8 g/dl (32.0-36.0); MEAN CELL VOLUME 84.9 fl (80-96); MONO % 0.9 % (3.8-10.2); NEUT % 92.7 % (42.8-82.8); PLATELET COUNT 66 K/MM3 (134-434); RBC 3.17 M/mm3 (3.60-5.2); RDW 18.2 % (11.6-15.6); WHITE BLOOD COUNT 3.7 K/mm3 (4.0-10.0)
[2017-10-04] MEDS ORDERED: ALBUTEROL SO4 2.5/IPRATROPIUM 0.5 INH SOL 3 ML VIAL.NEB. NEB SCH (08:00)
[2017-10-04] MEDS: ALBUTEROL SO4 2.5/IPRATROPIUM 0.5 INH SOL 3 ML VIAL.NEB. NEB SCH ×2 (08:30→14:06)
[2017-10-04 08:40] LABS: ALBUMIN 2.2 g/dl (3.4-5.0); ANION GAP 11 (8-16); BILIRUBIN,TOTAL 0.6 mg/dL (0.2-1.0); BLOOD UREA NITROGEN 51 mg/dL (7-18); CALCIUM 8.3 mg/dL (8.5-10.1); CHLORIDE 106 mmol/L (98-107); CO2 21 mmol/L (21-32); CREATININE 3.9 mg/dL (0.55-1.02); MAGNESIUM 2.8 mg/dL (1.8-2.4); PHOSPHOROUS 3.8 mg/dL (2.5-4.9); POTASSIUM 4.6 mmol/L (3.5-5.1); SGOT/AST 49 U/L (15-37); SGPT/ALT 32 U/L (12-78); SODIUM 138 mmol/L (136-145); TOT PROT 6.8 g/dl (6.4-8.2)
[2017-10-04 08:42] LABS: ALK PHOS 235 U/L (45-117)
[2017-10-04 08:56] LABS: GLUCOSE,RANDOM 394 mg/dL (74-106)
--- NOTE | 2017-10-04 09:37 | EKG ---
Test Reason : Blood Pressure : / mmHG Vent. Rate : 089 BPM Atrial Rate : 089 BPM P-R Int : 200 ms QRS Dur : 094 ms QT Int : 404 ms P-R-T Axes : 047 -09 114 degrees QTc Int : 491 ms NORMAL SINUS RHYTHM T WAVE ABNORMALITY, CONSIDER LATERAL ISCHEMIA ABNORMAL ECG WHEN COMPARED WITH ECG OF 29-MAR-2017 09:33, QT HAS LENGTHENED Confirmed by ROSA OSEGUERA, NICOLASA ([id number]) on 10/04/2017 9:37:23 AM Referred By: Confirmed By:NICOLASA LEE MD
[2017-10-04] MEDS ORDERED: FLUTICASONE/SALMETEROL 100 MCG/50 MCG DISKUS IH SCH ×2 (10:00→22:00)
[2017-10-04] MEDS ORDERED: amLODIPine BESYLATE 5 MG TABLET (FP) PO SCH (10:00)
[2017-10-04] MEDS ORDERED: PANTOPRAZOLE 20 MG TABLET (FP) PO SCH (10:00)
[2017-10-04] MEDS ORDERED: INSULIN DETEMIR 100 UNITS/ML MDV SQ ONE (11:12)
[2017-10-04] MEDS ORDERED: SODIUM CHLORIDE 1,000 ML IV SCH (11:15)
[2017-10-04 12:37] VITALS: BP 130/83; TEMP 97.4; BMI 34.0
--- NOTE | 2017-10-04 12:44 | CON.PULM ---
Consult Consult Specialty:: PULMONARY Referred by:: PMD Reason for Consultation:: SOB/ASTHMA - History of Present Illness Chief Complaint: COUGH/WHEEZE/SOB/NAUSEA W VOMITTING FOR ONE WEEK History of Present Illness: The patient is a 57 year old female who was BIBA due to weakness, sob,wheeze, cough,nausea,vomiting and anorexia for one week.She has a past medical history of carcinoma of gallbladder s/p cholecystectomy, follow up has shown no spread or recurrence. Patient was found to have a large right pleural effusion , in 2013 found to be transudative in nature likely due to nephrosis or cirrhosis( seen on ct ) no malignant cells noted. Patient has a history of asthma with multiple ER visits as she does not have a PMD or Assessment Clinician., Also, history of diabetes insulin dependant, HTN, and CHF, CRF. 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 No: AFIB Pulmonary: Yes: Asthma Gastrointestinal: Yes: Cancer (gall bladder s/p surgery and chemo) Hepatobiliary: Yes: Cirrhosis Renal/: Yes: Renal Failure ...LMP: 11/11/13 Heme/Onc: Yes: Anemia Musculoskeletal: Yes: Other (left leg pain) Endocrine: Yes: Diabetes Mellitus - Past Surgical History Past Surgical History: Yes: Cholecystectomy - Alcohol/Substance Use Hx Alcohol Use: No - Smoking History Smoking history: Never smoked Have you smoked in the past 12 months: No Aproximately how many cigarettes per day: 0 - Social History Usual Living Arrangement: With Child ADL: Independent Home Medications - Allergies Allergies/Adverse Reactions: Allergies Allergy/AdvReac Type Severity Reaction Status Date / Time No Known Allergies Allergy Verified 10/03/17 21:56 - Home Medications Home Medications: Ambulatory Orders Omeprazole [Prilosec (RX)] 20 mg PO DAILY 11/10/13 Albuterol Sulfate Inhaler - [Ventolin HFA Inhaler -] 1 - 2 inh PO Q4H PRN #1 inhaler 11/05/14 Amlodipine Besylate [Norvasc -] 5 mg PO DAILY #30 tablet 11/05/14 Prednisone [Deltasone -] 10 mg PO DAILY #20 tablet 11/05/14 Salmeterol/Fluticasone [Advair 100Mcg/50Mcg -] 1 inh IH DAILY #1 inhaler Albuterol 0.083% Nebulizer Chica [Ventolin 0.083% Nebulizer Soln -] 1 neb NEB Q6H PRN #100 vial 03/29/17 Furosemide [Lasix] 20 mg PO BID #14 tablet MDD 2 03/29/17 Hydrochlorothiazide 25 mg PO DAILY #14 tablet 03/29/17 Insulin Glargine,Hum.rec.anlog [Lantus Solostar PEN -] 40 units SQ HS #14 pen Metformin HCl [Glucophage] 1,000 mg PO BID #28 tablet 03/29/17 Prednisone [Deltasone -] 40 mg PO DAILY #7 tablet 03/29/17 Family Disease History - Family Disease History Family Disease History: Diabetes: Mother, CA: Father, Mother Review of Systems - Review of Systems Constitutional: reports: Lethargy, Loss of Appetite. denies: Fever Eyes: denies: Blurred Vision HENT: denies: Difficult Swallowing Neck: reports: No Symptoms Cardiovascular: reports: Chest Pain, Shortness of Breath Respiratory: reports: Cough, Exercise Intolerance, SOB, SOB on Exertion, Wheezing. denies: Hemoptysis Gastrointestinal: reports: Nausea, Vomiting Genitourinary: reports: No Symptoms. denies: Burning Breasts: reports: No Symptoms Reported Musculoskeletal: reports: No Symptoms Neurological: reports: No Symptoms Physical Exam Vital Sings: Vital Signs Temperature 98.5 F 10/03/17 21:56 Pulse Rate 63 10/04/17 07:00 Respiratory Rate 18 10/04/17 07:00 Blood Pressure 137/65 10/04/17 07:00 O2 Sat by Pulse Oximetry (%) 100 10/04/17 07:30 Constitutional: Yes: Anxious Eyes: Yes: EOM Intact HENT: Yes: Normocephalic Neck: Yes: Trachea Midline Cardiovascular: Yes: Regular Rate and Rhythm, S1, S2 Respiratory: Yes: Rhonchi (scattered) Gastrointestinal: Yes: Soft, Abdomen, Obese Edema: No Labs: CBC, BMP 10/04/17 06:00 10/04/17 06:00 Imaging - Results Chest X-ray: Report Reviewed, Image Reviewed EKG: Report Reviewed, Image Reviewed Problem List - Problems (1) Asthma exacerbation Code(s): J45.901 - UNSPECIFIED ASTHMA WITH (ACUTE) EXACERBATION Qualifiers: Asthma severity: moderate Asthma persistence: persistent Qualified Code(s ): J45.41 - Moderate persistent asthma with (acute) exacerbation (2) Chronic renal insufficiency Code(s): N18.9 - CHRONIC KIDNEY DISEASE, UNSPECIFIED Qualifiers: Chronic kidney disease stage: unspecified stage Qualified Code(s): N18.9 - Chronic kidney disease, unspecified (3) RODRIGUEZ (acute kidney injury) Code(s): N17.9 - ACUTE KIDNEY FAILURE, UNSPECIFIED (4) Anxiety Code(s): F41.9 - ANXIETY DISORDER, UNSPECIFIED (5) Chest pain Code(s): R07.9 - CHEST PAIN, UNSPECIFIED Assessment/Plan acute exacerbation of bronchial astma likely due to acute bronchitis worsening of chronic renal insufficiency due to N/V and worsening diabetes H/O right(transudative) pleural effusion may have been on basis of nephrosis H/O htn/chf/hypoalbuminemia/elevated ast/alk phos O2 SUPPLEMENTATION/BRONCHODILATORS/BRIEF COURSE STEROIDS/CONSIDER ANTIBIOTICS/ CHECK INFLU SWAB/CHECK SPUTUM CULTURE GLYCEMIC CONTROL/SUGGEST ENDO AND RENAL CONSULTS WHEN STABLE WOULD REPEAT CT CHEST/ABD FOLLOW UP WILL FOLLOW Kaya MORRIS MD
[2017-10-04 13:48] VITALS: PULSE 82
[2017-10-04] MEDS ORDERED: FLU VACCINE QUAD 60 MCG/0.5 ML (MDV 17-18) IM ONE (15:30)
[2017-10-04 15:58] LABS: URINE CREATININE 63.6 mg/dL (20-320)
[2017-10-04] MEDS ORDERED: INSULIN SLIDING SCALE (NOVOLOG) 1 VIAL SQ SCH (16:30)
--- NOTE | 2017-10-04 17:32 | DS ---
Physical Exam: SUBJECTIVE: Patient seen and examined. seen in morning in the ED. States breathing has improved with treatments. Cough improved. No chest pain, fever, chills. No n/v/diarrhea. OBJECTIVE: Vital Signs Period Temp Pulse Resp BP Sys/Jin Pulse Ox Last 24 Hr 97.4 F-98.5 F 63-98 18-24 130-137/65-83 98-100 PHYSICAL EXAM GENERAL: nad, aaox3, speaking in full sentences HEAD: Normal with no signs of trauma. EYES: PERRL, extraocular movements intact, sclera anicteric, conjunctiva clear ENT: oropharynx clear without exudates, moist mucous membranes NECK: supple, no cervical LAD LUNGS: +airway entry, scattered wheezes, no accessory muscle use HEART: rrr, normal s1/s2, no m/r/g ABDOMEN: obese, soft, ntnd, normoactive BS LOWER EXTREMITIES: 2+ DP pulses, wwp, no edema NEUROLOGICAL: Cranial nerves II through XII intact. Sensation intact, motor strength 5/5 in all four extremities, normal speech, gait not observed. LABS CBC, BMP 10/04/17 06:00 10/04/17 06:00 Hepatic Panel Total Bilirubin 0.6 mg/dL (0.2-1.0) D 10/04/17 06:00 AST 49 U/L (15-37) H 10/04/17 06:00 ALT 32 U/L (12-78) 10/04/17 06:00 Alkaline Phosphatase 235 U/L (45-117) H 10/04/17 06:00 Albumin 2.2 g/dl (3.4-5.0) L 10/04/17 06:00 HOSPITAL COURSE: Date of Admission:10/04/17 Date of Discharge: 10/04/17 Pre-Hospital Admission: 57yo woman w/PMH of asthma (6-7 exacerbations/year and prior intubations), DM2, CHF, HTN, cholangiocarcinoma s/p CCY and chemo (2013) and pleural effusion ( drained w/ thoracentesis) who was BIBEMS due to one week of worsening SOB, cough and wheezing, now with chest tightness and diffuse chest wall pain worsened by coughing. Pt states she began experiencing productive cough (white sputum), SOB, worsening wheezing x 1 week. She has been experiencing post- tussive emesis for the past 3 days. She states yesterday and today, she feels like her "chest is caving in" and endorses anterior diffuse CP and back pain, worsened by coughing and deep inspiration, which prompted her to call the ambulance. She endorses recent diarrhea and subjective chills for the past few days. She denies fever, [place]/dizziness, rashes, dysuria, LE edema, claudications or new neuro symptoms. She has very limited exercise tolerance and cannot walk one block w/o becoming SOB. Denies recent travel, pets or occupational exposures. Pt diagnosed w/ asthma as child and has been on lifelong medication for management, currently taking albuterol nebs and advair at home for management. Pt w/ multiple admissions for asthma exacerbation each year (6-7 times) and two prior intubations due to respiratory failure. She does not currently follow with a automated manufacturing instructor and her PCP is Dr. Okeefe at [address] ER course was notable for: (1)Tro 0.08, BNP 724 (2)BUN/Cr 50/3.8 (3)Received Albuterol x2, Medrol 125mg IV, Lasix 40mg IV Subsequent Hospital Admission: Patient's breathing had improved with duo nebs, advair, and steroid treatments. Labs were notable for RODRIGUEZ on CKD. Her home lasix was held and she was gently hydrated with improvement in her kidney function. Unfortunately, as further asthma treatment and work-up for her CKD was underway the patient left against medical advice. All risks to leaving were explained to the patient, but she was adamant that she wished to leave. Minutes to complete discharge: 45 Discharge Summary Reason For Visit: SOB EXACERBATION OF ASTHMA Current Active Problems Asthma exacerbation (Acute) Chronic renal insufficiency (Acute) Shortness of breath (Acute) - Instructions Disposition: AGAINST MEDICAL ADVICE - Home Medications Comprehensive Discharge Medication List: Ambulatory Orders Omeprazole [Prilosec (RX)] 20 mg PO DAILY 11/10/13 Albuterol Sulfate Inhaler - [Ventolin HFA Inhaler -] 1 - 2 inh PO Q4H PRN #1 inhaler 11/05/14 Amlodipine Besylate [Norvasc -] 5 mg PO DAILY #30 tablet 11/05/14 Prednisone [Deltasone -] 10 mg PO DAILY #20 tablet 02/11/15 Salmeterol/Fluticasone [Advair 100Mcg/50Mcg -] 1 inh IH DAILY #1 inhaler Albuterol 0.083% Nebulizer [place] [Ventolin 0.083% Nebulizer Soln -] 1 neb NEB Q6H PRN #100 vial 03/29/17 Furosemide [Lasix] 20 mg PO BID #14 tablet MDD 2 03/29/17 Hydrochlorothiazide 25 mg PO DAILY #14 tablet 03/29/17 Insulin Glargine,Hum.rec.anlog [Lantus Solostar PEN -] 40 units SQ HS #14 pen Metformin HCl [Glucophage] 1,000 mg PO BID #28 tablet 03/29/17 Prednisone [Deltasone -] 40 mg PO DAILY #7 tablet 03/29/17 This patient is new to me today: No Emergency Visit: No Critical Care patient: No - Discharge Referral Referred to [facility] No
--- NOTE | 2017-10-04 17:55 | PN ---
Teaching Attending Note Name of Resident: Amira Sebastian ATTENDING PHYSICIAN STATEMENT I saw and evaluated the patient. I reviewed the resident's note and discussed the case with the resident. I agree with the resident's findings and plan as documented. SUBJECTIVE:seen at 1 pm No fever or chills , SOB. refused to answer more questions OBJECTIVE: mild distress, CV: RRR Lungs : good air entry, scattered wheezes , prolonged exp phase EXT : no edema ASSESSMENT AND PLAN: 57 y/o lady with h/o HTN, ASthma, and CHF and other medical problems who presneted with SOB and was found to have asthma exa 1- Acute asthma exa. - steroids . - Nebs - increase dose of home advair - flu neg , no PNA 2- uncontrolled DM, did not receive insulin last night - gave 15 units of levemir earlier - cont HS levemir dose at 40 - SSI 3- RODRIGUEZ: likely due to prerenal etiology form volume depletion - although BNP is elevated , pt clinically looks volume depleted. - started IVF - No diuresis -check renal US and urine electrolytes( Fe Urea ) 5- h/o CHF: volume depleted now Dispo : HLOC , but she wants to sign AMA . risks explained by Dr. Malone and Dr. Sebastian
[2017-10-04] MEDS ORDERED: INSULIN DETEMIR 100 UNITS/ML MDV SQ SCH (22:00)
[2017-10-05 06:06] LABS: SERUM IRON SATURATION 24 % (15-55); TOTAL IRON BINDING CAPACITY 239 ug/dL (250-450); UIBC 181 ug/dL (131-425)
== END 2017-10-04 17:45 | disposition left against medical advice (07) | DRG 141 ==
LOC: JER 21:53 → JERBED 10-04 00:36 → UNDOADMIN 10-04 00:36 → JERBED 10-04 02:06 → J7W 10-04 11:45
PROVIDERS: ADMIT Internal Medicine; ATTEND Internal Medicine
DX: J45.41 Moderate persistent asthma with (acute) exacerbation (principal); I11.0 Hypertensive heart disease with heart failure; I50.9 Heart failure, unspecified; Z79.84 Long term (current) use of oral hypoglycemic drugs; C23 Malignant neoplasm of gallbladder; N17.9 Acute kidney failure, unspecified; I13.0 Hypertensive heart and chronic kidney disease with heart failure and stage 1 through stage 4 chronic kidney disease, or unspecified chronic kidney disease; N18.9 Chronic kidney disease, unspecified; D64.9 Anemia, unspecified; D69.6 Thrombocytopenia, unspecified; Z79.4 Long term (current) use of insulin; Z92.21 Personal history of antineoplastic chemotherapy; F41.9 Anxiety disorder, unspecified; J20.9 Acute bronchitis, unspecified; E11.65 Type 2 diabetes mellitus with hyperglycemia; E86.9 Volume depletion, unspecified
CPT/HCPCS: 36415; 71045-TC; 80053; 82436; 82550; 82553; 82570; 82607; 82728; 82746; 82962; 83540; 83550; 83735; 83880; 83930; 84100; 84133; 84156; 84300; 84466; 84484; 84540; 85025; 85610; 87804; 93005; 93010; 93306-TC; 94150; 94640; 99285-25

== ENCOUNTER 2017-10-07 11:06 | Inpatient (IN) | payer OTHER ==
[2017-10-07] MEDS ORDERED: ALBUTEROL SO4 2.5/IPRATROPIUM 0.5 INH SOL 3 ML VIAL.NEB. NEB ONE ×3 (11:19→20:17)
[2017-10-07] MEDS ORDERED: predniSONE 20 MG TABLET (UD) PO ONE (11:19)
--- NOTE | 2017-10-07 11:22 | PDOC ---
History of Present Illness - General History Source: Patient, Old Records Exam Limitations: No Limitations <Bret Ferrell - Last Filed: 10/07/17 13:28> - General History Source: Patient Exam Limitations: No Limitations - History of Present Illness Initial Comments: 10/07/17 11:55 The patient is a 57 year old female, with a significant past medical history of hypertension, Asthma, CHF, type II diabetes, thoracentesis s/p large pleural effusions, gallbladder CA s/p cholecystectomy, who presents to the emergency department for increased shortness of breath, wheezing, and cough since leaving against medical advice on 10/04/17 because she reportedly had to take care of her son. The patient denies use of her nebulizer or inhaler since being discharged from the hospital 3 days ago. She reports her cough is productive of white sputum. She denies hemoptysis. She states she has been burning up with fever for 2 days, however, denies taking her temperature. She denies chest pain, headache and dizziness. She denies chills, nausea, vomit , diarrhea and constipation. She denies dysuria, frequency, urgency and hematuria. Allergies: NKDA <Mariajose Jarrett - Last Filed: 10/07/17 14:36> - General Chief Complaint: Wheezing Stated Complaint: COUGH Time Seen by Provider: 10/07/17 11:13 Past History - Past Medical History Anemia: No Asthma: Yes Cancer: Yes (H/O GALLBLADDER: 2013) Cardiac Disorders: No CVA: No COPD: No CHF: Yes Dementia: No Diabetes: Yes GI Disorders: No Disorders: No HTN: Yes Hypercholesterolemia: No Liver Disease: No Seizures: No Thyroid Disease: No - Surgical History Abdominal Surgery: Yes Appendectomy: No Cardiac Surgery: No Cholecystectomy: Yes Lung Surgery: No Neurologic Surgery: No Orthopedic Surgery: No - Immunization History Immunization Up to Date: Yes - Suicide/Smoking/Psychosocial Hx Smoking Status: Yes Smoking History: Never smoked Have you smoked in the past 12 months: No Number of Cigarettes Smoked Daily: 0 Information on smoking cessation initiated: No Hx Alcohol Use: No Drug/Substance Use Hx: No Substance Use Type: None <Bret Ferrell - Last Filed: 10/07/17 13:28> <Mariajose Jarrett - Last Filed: 10/07/17 14:36> - Past Medical History Allergies/Adverse Reactions: Allergies Allergy/AdvReac Type Severity Reaction Status Date / Time No Known Allergies Allergy Verified 10/07/17 11:22 Home Medications: Ambulatory Orders Omeprazole [Prilosec (RX)] 20 mg PO DAILY 11/10/13 Albuterol Sulfate Inhaler - [Ventolin HFA Inhaler -] 1 - 2 inh PO Q4H PRN #1 inhaler 11/05/14 Amlodipine Besylate [Norvasc -] 5 mg PO DAILY #30 tablet 11/05/14 Prednisone [Deltasone -] 10 mg PO DAILY #20 tablet 11/05/14 Salmeterol/Fluticasone [Advair 100Mcg/50Mcg -] 1 inh IH DAILY #1 inhaler Albuterol 0.083% Nebulizer Chica [Ventolin 0.083% Nebulizer Soln -] 1 neb NEB Q6H PRN #100 vial 03/29/17 Furosemide [Lasix] 20 mg PO BID #14 tablet MDD 2 03/29/17 Hydrochlorothiazide 25 mg PO DAILY #14 tablet 03/29/17 Insulin Glargine,Hum.rec.anlog [Lantus Solostar PEN -] 40 units SQ HS #14 pen Metformin HCl [Glucophage] 1,000 mg PO BID #28 tablet 03/29/17 Prednisone [Deltasone -] 40 mg PO DAILY #7 tablet 03/29/17 Review of Systems - Review of Systems Able to Perform ROS?: Yes Comments:: 10/07/17 11:56 GENERAL/CONSTITUTIONAL: () subjective fever. No chills. No weakness. HEAD, EYES, EARS, NOSE AND THROAT: No change in vision. No ear pain or discharge. No sore throat. CARDIOVASCULAR: No chest pain or shortness of breath. RESPIRATORY: (+) cough, wheezing, shortness of breath. No hemoptysis. GASTROINTESTINAL: No nausea, vomiting, diarrhea or constipation. GENITOURINARY: No dysuria, frequency, or change in urination. MUSCULOSKELETAL: No joint or muscle swelling or pain. No neck or back pain. SKIN: No rash NEUROLOGIC: No headache, vertigo, loss of consciousness, or change in strength/ sensation. ENDOCRINE: No increased thirst. No abnormal weight change. HEMATOLOGIC/LYMPHATIC: No anemia, easy bleeding, or history of blood clots. ALLERGIC/IMMUNOLOGIC: No hives or skin allergy. <Mariajose Jarrett - Last Filed: 10/07/17 14:36> *Physical Exam - Vital Signs Last Vital Signs Temp Pulse Resp BP Pulse Ox 99.7 F H 94 H 22 151/87 96 10/07/17 11:18 10/07/17 11:18 10/07/17 11:18 10/07/17 11:18 10/07/17 11:18 <Bret Ferrell - Last Filed: 10/07/17 13:28> - Vital Signs Last Vital Signs Temp Pulse Resp BP Pulse Ox 99.7 F H 94 H 22 151/87 96 10/07/17 11:18 10/07/17 11:18 10/07/17 11:18 10/07/17 11:18 10/07/17 11:18 - Physical Exam Comments: 10/07/17 11:57 GENERAL: (+) Anxious, Awake, alert, and fully oriented, in mild distress HEAD: No signs of trauma EYES: PERRLA, EOMI, sclera anicteric, conjunctiva clear ENT: Auricles normal inspection, hearing grossly normal, nares patent, oropharynx clear without exudates. Moist mucosa NECK: Normal ROM, supple, no lymphadenopathy, JVD, or masses LUNGS: (+) rhonchorous breath sounds with expiratory wheezing bilaterally. HEART: (+) tachycardic rate and normal rhythm, normal S1 and S2, no murmurs, rubs or gallops ABDOMEN: Soft, nontender, normoactive bowel sounds. No guarding, no rebound. No masses EXTREMITIES: Normal range of motion, no edema. No clubbing or cyanosis. No cords, erythema, or tenderness NEUROLOGICAL: Cranial nerves II-XII intact. Normal speech, normal gait. Sensation intact in upper and lower extremities. 5/5 motor strength in upper and lower extremities. No pronator drift. Finger to nose intact. Rapid alternations intact. SKIN: Warm, Dry, normal turgor, no rashes or lesions noted. <Mariajose Jarrett - Last Filed: 10/07/17 14:36> ED Treatment Course - LABORATORY CBC & Chemistry Diagram: 10/07/17 11:50 10/07/17 11:50 - RADIOLOGY Radiology Studies Ordered: Category Date Time Status CHEST X-RAY PORTABLE* [RAD] Stat Radiology 10/07/17 11:19 Ordered <MariaelenaBret - Last Filed: 10/07/17 13:28> - LABORATORY CBC & Chemistry Diagram: 10/07/17 11:50 10/07/17 11:50 - RADIOLOGY Radiograph Interpretation: EXAM#: TYPE/EXAM: RESULT: [id number] RAD/CHEST X-RAY PORTABLE* Chest: Cough. Wheeze. Sepsis. Since 10/03/2017, there is a more apical lordotic projection with large heart, normal aorta and slightly prominent hilar markings. There is no sign of infiltrate or failure. The angles are sharp. The bones and soft tissues are intact. Impression: Large heart. Prominent central markings. No acute chest pathology. Reported By: Reyes White MD 10/07/17 1141 <Mariajose Jarrett - Last Filed: 10/07/17 14:36> Medical Decision Making - Medical Decision Making 10/07/17 11:46 A portion of this note was documented by scribe services under my direction. I have reviewed the details of the note, within reason, and agree with the documentation with the following case summary and management plan written by me. Patient treated in the ED. Nursing notes are reviewed and incorporated into the medical decision-making. Vital signs reviewed. Peripheral IV access obtained by the nurse, laboratory studies are drawn and sent, reviewed and interpreted by myself. Vital Signs Temp Pulse Resp BP Pulse Ox 99.7 F H 94 H 22 151/87 96 10/07/17 11:18 10/07/17 11:18 10/07/17 11:18 10/07/17 11:18 10/07/17 11:18 57 year old female with past medical history of asthma, hypertension, congestive heart failure, uncontrolled diabetes, congestive heart failure presents with persistent shortness of breath. The patient was recently admitted on 10/04 and left AGAINST MEDICAL ADVICE. At that time, patient reported that she did take care of her son. Since then, patient is reporting tactile fevers and persistent shortness of breath and wheezing and coughing that is yellowish and productive cough. Denies chest pain. Patient continues to feel short of breath and wheezing. I suspect the patient is likely have an asthma exacerbation with potentially proctitis versus pneumonia. Patient temperature is 99.7 degrees. Patient is also feeling anxious. We'll obtain blood work including cultures. Obtain a chest x-ray. Nebulizers and steroids. We'll give a little bit of Ativan for the anxiety and the patient should be admitted to the hospital for further evaluation. 10/07/17 13:28 Chest xray reviewed, enlarged heart. However, will treat as bronchitis clinically. Ceftriaxone and azithromycin. CBC, BMP 10/07/17 11:50 10/07/17 11:50 CMP Sodium 141 mmol/L (136-145) 10/07/17 11:50 Potassium 3.9 mmol/L (3.5-5.1) 10/07/17 11:50 Chloride 105 mmol/L (98-107) 10/07/17 11:50 Carbon Dioxide 27 mmol/L (21-32) D 10/07/17 11:50 Anion Gap 9 (8-16) 10/07/17 11:50 BUN 51 mg/dL (7-18) H 10/07/17 11:50 Creatinine 3.3 mg/dL (0.55-1.02) H 10/07/17 11:50 Creat Clearance w eGFR 14.51 (>60) 10/07/17 11:50 Random Glucose 110 mg/dL (74-106) H 10/07/17 11:50 Lactic Acid 0.7 mmol/L (0.0-2.0) 10/07/17 11:50 Calcium 8.4 mg/dL (8.5-10.1) L 10/07/17 11:50 Phosphorus 3.0 mg/dL (2.5-4.9) D 10/07/17 11:50 Magnesium 2.0 mg/dL (1.8-2.4) D 10/07/17 11:50 Total Bilirubin 1.0 mg/dL (0.2-1.0) D 10/07/17 11:50 AST 70 U/L (15-37) H D 10/07/17 11:50 ALT 46 U/L (12-78) D 10/07/17 11:50 Alkaline Phosphatase 246 U/L (45-117) H D 10/07/17 11:50 Creatine Kinase 199 IU/L (26-192) H 10/07/17 11:50 Creatine Kinase Index 1.5 % (0.0-5.0) 10/07/17 11:50 CK-MB (CK-2) 3.029 ng/mL (0.5-3.6) 10/07/17 11:50 Troponin I 0.08 ng/ml (0.00-0.05) H 10/07/17 11:50 B-Natriuretic Peptide 443.79 pg/ml (5-125) H 10/07/17 11:50 Total Protein 7.3 g/dl (6.4-8.2) 10/07/17 11:50 Albumin 2.4 g/dl (3.4-5.0) L 10/07/17 11:50 Pt continues to wheeze. Given trop of 0.08 (likely demand), will admit to telemetry admission. Case discussed with Dr. Sanders who accepts the patient to telemetry admission. Case discussed in detail with admitting physician including history, physical exam and ancillary studies. Admitting physician has assumed care for the patient, will follow all pending diagnostics and will complete the evaluation and treatment. <Bret Ferrell - Last Filed: 10/07/17 13:28> *DC/Admit/Observation/Transfer - Discharge Dispostion Admit: Yes <Bret Ferrell - Last Filed: 10/07/17 13:28> - Attestations Scribe Attestion: 10/07/17 12:00 Documentation prepared by Mariajose Jarrett, acting as medical insurance coder for Bret Ferrell MD, <Mariajose Jarrett - Last Filed: 10/07/17 14:36> Diagnosis at time of Disposition: Asthma Qualifiers: Asthma severity: unspecified severity Asthma persistence: unspecified Asthma complication type: unspecified Qualified Code(s): J45.909 - Unspecified asthma, uncomplicated - Discharge Dispostion Condition at time of disposition: Stable
[2017-10-07] MEDS ORDERED: predniSONE 20 MG TABLET (UD) ONE (11:27)
[2017-10-07] MEDS ORDERED: CEFTRIAXONE 1 GM in DEXTROSE 5%-WATER - 50 ML IVPB ONE (11:47)
[2017-10-07] MEDS ORDERED: ACETAMINOPHEN 1000 MG/100 ML VIAL (NON FORMULARY) IVPB ONE (11:47)
[2017-10-07] MEDS ORDERED: LORazepam 2 MG/ML SDV VIAL ONE (11:52)
[2017-10-07] MEDS ORDERED: ACETAMINOPHEN INJECTION 100 ML IVPB ONE (11:52)
[2017-10-07] MEDS ORDERED: CEFTRIAXONE 1 GM/50 ML BAG ONE ×2 (11:52→12:13)
[2017-10-07 12:23] LABS: BASO % 0.3 % (0-2.0); EOS % 1.8 % (0-4.5); HEMATOCRIT 29.8 % (32.4-45.2); HEMOGLOBIN 9.7 GM/dL (10.7-15.3); LYMPH % 6.6 % (8-40); MCH 27.4 pg (25.7-33.7); MCHC 32.5 g/dl (32.0-36.0); MEAN CELL VOLUME 84.2 fl (80-96); MEAN PLT VOLUME 9.4 fl (7.5-11.1); MONO % 9.5 % (3.8-10.2); NEUT % 81.8 % (42.8-82.8); PLATELET COUNT 79 K/MM3 (134-434); RBC 3.54 M/mm3 (3.60-5.2); RDW 18.1 % (11.6-15.6); VENOUS PC02 45.9 mmHg (38-52); VENOUS PH 7.36 (7.32-7.42); VENOUS PO2 37.1 mmHg (28-48); WHITE BLOOD COUNT 7.2 K/mm3 (4.0-10.0)
[2017-10-07 12:35] LABS: INR 1.12 (0.82-1.09); PROTHROMBIN TIME (PATIENT) 12.6 SEC (9.98-11.88)
[2017-10-07 12:38] LABS: ACTIVATED PTT 33.5 SECONDS (26.9-34.4)
[2017-10-07 12:57] LABS: ALBUMIN 2.4 g/dl (3.4-5.0); ANION GAP 9 (8-16); BLOOD UREA NITROGEN 51 mg/dL (7-18); CALCIUM 8.4 mg/dL (8.5-10.1); CHLORIDE 105 mmol/L (98-107); CO2 27 mmol/L (21-32); CREATININE 3.3 mg/dL (0.55-1.02); GLUCOSE,RANDOM 110 mg/dL (74-106); POTASSIUM 3.9 mmol/L (3.5-5.1); SGOT/AST 70 U/L (15-37); SGPT/ALT 46 U/L (12-78); SODIUM 141 mmol/L (136-145); TOT PROT 7.3 g/dl (6.4-8.2)
[2017-10-07 13:00] LABS: ALK PHOS 246 U/L (45-117); N-TERMINAL BNP 443.79 pg/ml (5-125)
[2017-10-07] MEDS ORDERED: AZITHROMYCIN IVPB 500 MG in DEXTROSE 5%-WATER - 250 ML IVPB ONE (13:09)
[2017-10-07] MEDS ORDERED: ALBUTEROL SO4 0.083% IH SOL 2.5 MG/3 ML VIAL.NEB. NEB PRN (14:08)
--- NOTE | 2017-10-07 14:08 | PN ---
Physical Exam: SUBJECTIVE: Patient seen and examined OBJECTIVE: Vital Signs Period Temp Pulse Resp BP Sys/Jin Pulse Ox Last 24 Hr 97.8 F-99.7 F 65-94 16-22 102-151/59-87 96-100 GENERAL: The patient is awake, alert, and fully oriented, in no acute distress. HEAD: Normal with no signs of trauma. EYES: PERRL, extraocular movements intact, sclera anicteric, conjunctiva clear. No ptosis. ENT: Ears normal, nares patent, oropharynx clear without exudates, moist mucous membranes. NECK: Trachea midline, full range of motion, supple. LUNGS: Breath sounds equal, clear to auscultation bilaterally, no wheezes, no crackles, no accessory muscle use. HEART: Regular rate and rhythm, S1, S2 without murmur, rub or gallop. ABDOMEN: Soft, nontender, nondistended, normoactive bowel sounds, no guarding, no rebound, no hepatosplenomegaly, no masses. EXTREMITIES: 2+ pulses, warm, well-perfused, no edema. NEUROLOGICAL: Cranial nerves II through XII grossly intact. Normal speech, gait not observed. PSYCH: Normal mood, normal affect. SKIN: Warm, dry, normal turgor, no rashes or lesions noted CBC, BMP 10/07/17 11:50 10/07/17 11:50 Hepatic Panel Total Bilirubin 1.0 mg/dL (0.2-1.0) D 10/07/17 11:50 AST 70 U/L (15-37) H D 10/07/17 11:50 ALT 46 U/L (12-78) D 10/07/17 11:50 Alkaline Phosphatase 246 U/L (45-117) H D 10/07/17 11:50 Albumin 2.4 g/dl (3.4-5.0) L 10/07/17 11:50 Active Medications Acetylcysteine (Mucomyst 20 Oral / Inh Use Only*) 1 mg NEB RTID NANCY Albuterol Sulfate (Ventolin 0.083% Nebulizer Soln -) 1 amp NEB Q4H PRN PRN Reason: SHORT OF BREATH/WHEEZING Albuterol/Ipratropium (Duoneb -) 1 amp NEB RQID NANCY Amlodipine Besylate (Norvasc -) 10 mg PO DAILY NANCY Heparin Sodium (Porcine) (Heparin -) 5,000 unit SQ TID NANCY Sodium Chloride (Normal Saline -) 1,000 mls @ 75 mls/hr IV ASDIR [facility] Insulin Aspart (Novolog Vial Sliding Scale -) 1 vial SQ TIDAC [facility] PRN Reason: Protocol Insulin Detemir (Levemir Vial) 40 units SQ AM [facility] Pantoprazole Sodium (Protonix -) 40 mg PO DAILY [facility] Prednisone (Deltasone -) 60 mg PO BID [facility] Fluticasone/Salmeterol (Advair 100mcg/50mcg -) 1 puff IH BID [facility] ASSESSMENT/PLAN:
[2017-10-07] MEDS ORDERED: ALBUTEROL SO4 0.083% IH SOL 2.5 MG/3 ML VIAL.NEB. NEB ONE (14:30)
[2017-10-07] MEDS ORDERED: AZITHROMYCIN IVPB 250 ML IVPB ONE (14:51)
[2017-10-07] MEDS ORDERED: PANTOPRAZOLE 20 MG TABLET (FP) PO SCH (15:00)
[2017-10-07] MEDS ORDERED: amLODIPine BESYLATE 5 MG TABLET (FP) PO SCH (15:00)
[2017-10-07] MEDS ORDERED: amLODIPine BESYLATE 10 MG TABLET (FP) PO SCH (16:15)
--- NOTE | 2017-10-07 16:27 | EKG ---
Test Reason : Blood Pressure : / mmHG Vent. Rate : 090 BPM Atrial Rate : 090 BPM P-R Int : 164 ms QRS Dur : 090 ms QT Int : 388 ms P-R-T Axes : 073 -10 104 degrees QTc Int : 474 ms POOR DATA QUALITY, INTERPRETATION MAY BE ADVERSELY AFFECTED NORMAL SINUS RHYTHM T WAVE ABNORMALITY, CONSIDER LATERAL ISCHEMIA ABNORMAL ECG WHEN COMPARED WITH ECG OF 04-OCT-2017 05:17, NO SIGNIFICANT CHANGE WAS FOUND Confirmed by JERALD PENA MD ([id number]) on 10/07/2017 4:26:45 PM Referred By: Confirmed By:JERALD PENA MD
[2017-10-07 17:15] LABS: ARTERIAL BLOOD GAS PCO2 32.6 mmHg (35-45); ARTERIAL BLOOD GAS pH 7.45 (7.35-7.45)
[2017-10-07 17:19] LABS: ARTERIAL BLD GAS O2 SATURATION 99.6 % (90-98.9)
--- NOTE | 2017-10-07 17:57 | PN ---
Teaching Attending Note Name of Resident: Amira Sebastian ATTENDING PHYSICIAN STATEMENT I saw and evaluated the patient. I reviewed the resident's note and discussed the case with the resident. I agree with the resident's findings and plan as documented. CC: SOB , not feeling well HPI: briefly : 57 y/o lady with multiple medical problems who was admitted recently for asthma exacerbation and left AMA 2 days ago. she cnt to feel SOB, and got worse, she declines taking any meds but admitted to using her inhalers and Nebs. Denies fever, has cough. she reports diarrhea x 2 days with 3 watery BM daily. no abd pain. in ER she was very anxious and was given ativan which made her a little confused OBJECTIVE: NAD , tearful, tachypnic , coughing. CV: RRR, possible 2/6 Sm at RUSB. Lungs : good air entry, scattered wheezes , prolonged exp phase, rales all over EXT : no edema , no erythema Abd : soft, NT, ND , NL BS , lower mid line scar . Neuro : EOMI, round equal pupils, no facial droop, tongue at mid line. strength 5/5 in upper and lower ext proximally and distally. reflexes 1+ knee jerk and 2 + biceps b/l EKG with NL axis, sinus rhythm, inverted T waves in I, AVL and flat in V1, V2 cxray with no inifltrate or change from prior labs reviewed. ASSESSMENT AND PLAN: 57 y/o lady with h/o HTN, Asthma, s/p intubation, gall bladder cancer s/p CCY , diastolic CHF and other medical problems who presented with SOB and was found to have asthma exacerbation 1- Acute asthma exa. No evidence of PNA ABG obtained, No hypercapnia - start prednisone 60 BID - Nebs standing and PRN - increase her advir dose to 250/50 - check a flu swab - give Mucomyst - hold off Abx 2- DM - levemir 40 daily - SSI 3- RODRIGUEZ: likely due to prerenal etiology form volume depletion given her acute sickness and diarrhea . given IVf last time and responded, then she stopped taking her lasix at home so cr improved - start IVF - hold lasix - check renal US -calculate FeNA 5- h/o diastolic CHF: volume depleted now . last echo last admission reviewed. 6- chronically elevated ASt and ALK Phos , probably related to her h/o gall bladder cancer and surgery - Check US , will compare to a prior one - check alcohol level 7- Normocytic anemia : iron studies las tadmisison with evidence of ACD . monitor DVT and GI prophylaxis
--- NOTE | 2017-10-07 18:20 | HP ---
CHIEF COMPLAINT: shortness of breath PCP: Dr. Francois Elder Pain Management: Dr. Willis London HISTORY OF PRESENT ILLNESS: 57yo woman with PMH of asthma (6-7 exacerbations/yr and prior intubations), IDDM , HTN, diastolic CHF, gallbladder Ca s/p CCY and chemo (2013) who presented three days ago with asthma exacerbation and left AMA. She returns today with similar presentation of worsening sob and productive cough. She reported to me that was not taking any medications while at home. No fever or chills. Endorsed several watery, non-bloody diarrheas to another interviewer. No n/v, dysuria. Denies smoking or alcohol use, but has 2nd hand smoke exposure. No recent travel or sick contacts. ER course was notable for: (1) Ativan 1mg, Rochephin x 1dose (2) Duo nebs (3) CXR unchanged from 10/04, no focal consolidation Recent Travel: No PAST MEDICAL HISTORY: HTN CHF DM2 Pleural effusions Asthma GB Cancer PAST SURGICAL HISTORY: CCY Thoracentesis for large pleural effusion Social History: Smoking: Denies, +2nd hand exposure Alcohol: denies Drugs: denies Family History: 4/6 siblings with asthma Allergies: NKDA HOME MEDICATIONS: Albuterol 0.083% Nebulizer Chica [Ventolin 0.083% Nebulizer Soln -] 1 neb NEB Q6H PRN 10/07/17 Albuterol Sulfate Inhaler - [Ventolin Hfa Inhaler -] 2 inh PO Q6H PRN 10/07/17 Amlodipine Besylate [Norvasc -] 10 mg PO DAILY 10/07/17 Fluticasone/Salmeterol [Advair Hfa 45-21 Mcg Inhaler] 2 puff IH DAILY 10/07/17 Furosemide [Lasix] 40 mg PO BID 10/07/17 Insulin Glargine,Hum.rec.anlog [Lantus Solostar] 40 unit SQ AM 10/07/17 Metoclopramide HCl [Reglan] 10 mg PO DAILY PRN 10/07/17 Oxycodone HCl/Acetaminophen [Percocet 10-325 mg Tablet] 10 - 325 tablet PO Q6H PRN MDD 4 10/07/17 REVIEW OF SYSTEMS CONSTITUTIONAL: Absent: fever, chills, diaphoresis, generalized weakness, malaise, loss of appetite, weight change HEENT: Absent: rhinorrhea, nasal congestion, throat pain, throat swelling, difficulty swallowing, mouth swelling, ear pain, eye pain, visual changes CARDIOVASCULAR: Absent: chest pain, syncope, palpitations, irregular heart rate, lightheadedness , peripheral edema RESPIRATORY: +cough, shortness of breath, dyspnea with exertion, orthopnea, wheezing Absent: stridor, hemoptysis GASTROINTESTINAL: Absent: abdominal pain, abdominal distension, nausea, vomiting, diarrhea, constipation, melena, hematochezia GENITOURINARY: Absent: dysuria, frequency, urgency, hesitancy, hematuria, flank pain, genital pain MUSCULOSKELETAL: Absent: myalgia, arthralgia, joint swelling, back pain, neck pain SKIN: Absent: rash, itching, pallor HEMATOLOGIC/IMMUNOLOGIC: Absent: easy bleeding, easy bruising, lymphadenopathy, frequent infections ENDOCRINE: Absent: unexplained weight gain, unexplained weight loss, heat intolerance, cold intolerance NEUROLOGIC: +hand shaking Absent: headache, focal weakness or paresthesias, dizziness, unsteady gait, seizure, mental status changes, bladder or bowel incontinence PSYCHIATRIC: Absent: anxiety, depression, suicidal or homicidal ideation, hallucinations. PHYSICAL EXAMINATION Vital Signs Period Temp Pulse Resp BP Sys/Jin Pulse Ox Last 24 Hr 98.5 F-99.7 F 89-94 16-22 147-151/75-87 96-96 GENERAL: drowsy, but arousable, intermittent productive cough HEAD: Normal with no signs of trauma EYES: PERRLA, EOMI, sclera anicteric, conjunctiva clear ENT: oropharynx clear without exudates, dry mm NECK: supple, no cervical LAD, no JVD LUNGS: course breath sounds bilaterally, scattered expiratory wheezing, no accessory muscle use HEART: RRR, normal s1/s2, no m/r/g ABDOMEN: Soft, ntnd, normoactive BS UPPER EXTREMITIES: 2+ radial pulses, wwp, no cyanosis, no peripheral edema LOWER EXTREMITIES: 2+ DP pulses, wwp, no calf tenderness, no peripheral edema NEUROLOGICAL: Cranial nerves II-XII intact. Normal speech. sensation intact and 5/5 motor strength in distal extremities CBC, BMP 10/07/17 11:50 10/07/17 11:50 Hepatic Panel Total Bilirubin 1.0 mg/dL (0.2-1.0) D 10/07/17 11:50 AST 70 U/L (15-37) H D 10/07/17 11:50 ALT 46 U/L (12-78) D 10/07/17 11:50 Alkaline Phosphatase 246 U/L (45-117) H D 10/07/17 11:50 Albumin 2.4 g/dl (3.4-5.0) L 10/07/17 11:50 Troponin, BNP 10/07/17 11:50 Troponin I 0.08 H B-Natriuretic Peptide 443.79 H 10/07/17 10/07/17 11:50 11:50 Lactic Acid 0.7 Phosphorus 3.0 D Magnesium 2.0 D CXR (10/07/17): unchanged from 10/04, no focal consolidations, pleural effusions, or pneumothorax EKG: NSR, rate 90, normal axis and intervals (QTc 474), TWI I and aVL ( unchanged from prior 10/04/17), flat T waves V1, V2 Active Medications Acetylcysteine (Mucomyst 20 Oral / Inh Use Only*) 1 mg NEB RTID NANCY Albuterol Sulfate (Ventolin 0.083% Nebulizer Soln -) 1 amp NEB Q4H PRN PRN Reason: SHORT OF BREATH/WHEEZING Albuterol/Ipratropium (Duoneb -) 1 amp NEB RQID [facility] Amlodipine Besylate (Norvasc -) 10 mg PO DAILY [facility] Heparin Sodium (Porcine) (Heparin -) 5,000 unit SQ TID [facility] Sodium Chloride (Normal Saline -) 1,000 mls @ 75 mls/hr IV ASDIR [facility] Insulin Aspart (Novolog Vial Sliding Scale -) 1 vial SQ TIDAC [facility] PRN Reason: Protocol Insulin Detemir (Levemir Vial) 40 units SQ AM [facility] Pantoprazole Sodium (Protonix -) 40 mg PO DAILY [facility] Prednisone (Deltasone -) 60 mg PO BID [facility] Fluticasone/Salmeterol (Advair 100mcg/50mcg -) 1 puff IH BID [facility] ASSESSMENT/PLAN: 57yo woman with PMH of asthma (h/o intubations), HTN, diastolic CHF, IDDM, gall bladder Ca (s/p CCY and chemo) who presents with worsening shortness of breath and found to have asthma exacerbation. #asthma exacerbation -steroids 60mg PO BID -Duo nebs QIDR + Ventolin nebs q4h PRN -Advair 100/50 (higher dose not on formulary) -Mucomyst -Flu swab #diastolic CHF, ECHO 10/05/17 (LV mildly dilated, LV ejection fraction normal, poor LV complaince, mild MR/TR, RV systolic pressure) -hold lasix #HTN -c/w amlodopine 10mg #IDDM -Levemir 40U in AM + ISS TIDAC #RODRIGUEZ on ?CKD, unclear baseline (March 2017 2.8), Cr improved with hydration on prior admission -hold lasix -c/w IVF -UCr and Apurva studies for FeNa -Renal U/S #normocytic anemia - w/u completed prior admission, c/w anemia of chronic disease #AST and ALP elevation, noted on prior admission -Liver U/S -Blood EtOH level #FEN: NS@75 / lytes wnl / Na controlled, DM diet #PPX -DVT - heparin tid -GI - PPI #DISPO: m/s FULL code d/w Dr. Tommy Sebastian MD PGY1 - Internal Medicine Visit type - Emergency Visit Emergency Visit: Yes ED Registration Date: 10/07/17 Care time: The patient presented to the Emergency Department on the above date and was hospitalized for further evaluation of their emergent condition. - New Patient This patient is new to me today: Yes Date on this admission: 10/07/17 - Critical Care Critical Care patient: No
[2017-10-07] MEDS: ALBUTEROL SO4 2.5/IPRATROPIUM 0.5 INH SOL 3 ML VIAL.NEB. NEB SCH (20:15)
[2017-10-07] MEDS: SODIUM CHLORIDE 1,000 ML IV SCH (20:35)
[2017-10-07] MEDS: amLODIPine BESYLATE 10 MG TABLET (FP) PO SCH (20:36)
[2017-10-07] MEDS ORDERED: amLODIPine BESYLATE 5 MG TABLET (FP) ONE (20:46)
[2017-10-07] MEDS ORDERED: BUDESONIDE/FORMETEROL FUMARATE 160/4.5 mcg INHALER IH SCH (22:00)
[2017-10-07] MEDS: ACETYLCYSTEINE 20% 200MG/ML 30 ML VIAL *FOR ORAL / INH USE ONLY NEB SCH (23:37)
[2017-10-07] MEDS: INSULIN SLIDING SCALE (NOVOLOG) 1 VIAL SQ SCH (23:38)
[2017-10-08] MEDS ORDERED: HEPARIN NA (PORCINE) 5,000 UNITS/ML 1ML VIAL ONE (00:13)
[2017-10-08] MEDS ORDERED: predniSONE 20 MG TABLET (UD) ONE (00:13)
[2017-10-08] MEDS: FLUTICASONE/SALMETEROL 100 MCG/50 MCG DISKUS IH SCH ×3 (01:00→21:43)
[2017-10-08] MEDS: predniSONE 20 MG TABLET (UD) PO SCH ×3 (01:00→21:42)
[2017-10-08] MEDS: HEPARIN NA (PORCINE) 5,000 UNITS/ML 1ML VIAL SQ SCH ×4 (01:01→21:42)
[2017-10-08] MEDS: ALBUTEROL SO4 0.083% IH SOL 2.5 MG/3 ML VIAL.NEB. NEB PRN ×2 (02:59→06:36)
[2017-10-08 03:08] VITALS: BMI 33.2
[2017-10-08 03:14] LABS: URINE APPEARANCE SLCLOUDY; URINE BILIRUBIN NEGATIVE (NEGATIVE); URINE BLOOD 1+ (NEGATIVE); URINE COLOR LTYELLOW; URINE GLUCOSE (UA) 3+ (NEGATIVE); URINE KETONE NEGATIVE (NEGATIVE); URINE LEUK ESTERASE TRACE (NEGATIVE); URINE NITRITE NEGATIVE (NEGATIVE); URINE PROTEIN 3+ (NEGATIVE); URINE UROBILINOGEN NEGATIVE mg/dL (0.2-1.0)
[2017-10-08 03:16] LABS: EPI CELLS MODERATE /HPF (FEW); URINE BACTERIA RARE /hpf (NONE SEEN); URINE HYALINE CAST 2 /lpf; URINE MUCUS RARE
[2017-10-08] MEDS: INSULIN SLIDING SCALE (NOVOLOG) 1 VIAL SQ SCH ×3 (07:02→17:10)
[2017-10-08] MEDS: INSULIN DETEMIR 100 UNITS/ML MDV SQ SCH (07:02)
[2017-10-08 07:47] LABS: HEMOGLOBIN 8.8 GM/dL (10.7-15.3); MCH 27.5 pg (25.7-33.7); MCHC 32.5 g/dl (32.0-36.0); MEAN CELL VOLUME 84.6 fl (80-96); MEAN PLT VOLUME 10.4 fl (7.5-11.1); PLATELET COUNT 75 K/MM3 (134-434); RBC 3.19 M/mm3 (3.60-5.2); RDW 17.8 % (11.6-15.6); WHITE BLOOD COUNT 6.8 K/mm3 (4.0-10.0)
[2017-10-08] MEDS ORDERED: ACETYLCYSTEINE 20% 200MG/ML 30 ML VIAL *FOR ORAL / INH USE ONLY NEB SCH ×2 (08:00)
[2017-10-08 08:14] LABS: ANION GAP 9 (8-16); BLOOD UREA NITROGEN 58 mg/dL (7-18); CALCIUM 7.9 mg/dL (8.5-10.1); CHLORIDE 106 mmol/L (98-107); CO2 24 mmol/L (21-32); CREATININE 3.7 mg/dL (0.55-1.02); POTASSIUM 4.2 mmol/L (3.5-5.1); SODIUM 139 mmol/L (136-145)
[2017-10-08] MEDS: ACETYLCYSTEINE 20% 200MG/ML 30 ML VIAL *FOR ORAL / INH USE ONLY NEB SCH ×4 (08:28→20:15)
[2017-10-08] MEDS: ALBUTEROL SO4 0.083% IH SOL 2.5 MG/3 ML VIAL.NEB. NEB SCH ×4 (08:28→20:15)
[2017-10-08 08:29] LABS: GLUCOSE,RANDOM 324 mg/dL (74-106)
[2017-10-08] MEDS ORDERED: INSULIN (NOVOLOG) ASPART 100 UNITS/ML 10ML VIAL ONE (09:19)
[2017-10-08] MEDS: amLODIPine BESYLATE 10 MG TABLET (FP) PO SCH (09:23)
[2017-10-08] MEDS: PANTOPRAZOLE 40 MG TABLET (FP) PO SCH (09:24)
[2017-10-08] MEDS ORDERED: predniSONE 20 MG TABLET (UD) PO SCH (10:00)
--- NOTE | 2017-10-08 14:04 | PN ---
Progress Note (short form) - Note Progress Note: Subjective: SOB has improved , still has cough Objective: Vital Signs: Last Vital Signs Temp Pulse Resp BP Pulse Ox 98.2 F 88 20 139/75 100 10/08/17 10:00 10/08/17 10:00 10/08/17 10:00 10/08/17 10:00 10/08/17 10:00 Laboratory Results - last 24 hr 10/07/17 10/07/17 10/07/17 11:20 11:50 17:10 WBC RBC Hgb Hct MCV MCH MCHC RDW Plt Count MPV Anticoagulation Therapy No Result Required. Puncture Site No Result Required. ABG pH 7.45 ABG pCO2 at Pt Temp 32.6 L ABG pO2 at Pt Temp 142.0 H ABG HCO3 22.2 ABG O2 Sat (Measured) 99.6 H* ABG O2 Content 11.9 L ABG Base Excess -1.0 Mik Test No Result Required. VBG pH 7.36 POC VBG pCO2 45.9 POC VBG pO2 37.1 Mixed VBG HCO3 25.4 H O2 Delivery Device No Result Required. Oxygen Flow Rate No Result Required. Vent Mode No Result Required. Vent Rate No Result Required. Mechanical Rate No Result Required. Pressure Support Vent No Result Required. Sodium Potassium Chloride Carbon Dioxide Anion Gap BUN Creatinine POC Glucometer [phone] Random Glucose Calcium Troponin I Urine Color Urine Appearance Urine pH Ur Specific [place] Urine Protein Urine Glucose (UA) Urine Ketones Urine Blood Urine Nitrite Urine Bilirubin Urine Urobilinogen Ur Leukocyte Esterase Urine WBC (Auto) Urine RBC (Auto) Ur Epithelial Cells Urine Bacteria Hyaline Casts Urine Mucus 10/08/17 10/08/17 10/08/17 03:00 06:00 06:00 WBC 6.8 RBC 3.19 L Hgb 8.8 L Hct 27.0 L MCV 84.6 MCH 27.5 MCHC 32.5 RDW 17.8 H Plt Count 75 L MPV 10.4 D Anticoagulation Therapy Puncture Site ABG pH ABG pCO2 at Pt Temp ABG pO2 at Pt Temp ABG HCO3 ABG O2 Sat (Measured) ABG O2 Content ABG Base Excess Mik Test VBG pH POC VBG pCO2 POC VBG pO2 Mixed VBG HCO3 O2 Delivery Device Oxygen Flow Rate Vent Mode Vent Rate Mechanical Rate Pressure Support Vent Sodium 139 Potassium 4.2 Chloride 106 Carbon Dioxide 24 Anion Gap 9 BUN 58 H Creatinine 3.7 H POC Glucometer Random Glucose 324 H* Calcium 7.9 L Troponin I 0.07 H Urine Color Ltyellow Urine Appearance Slcloudy Urine pH 5.0 Ur Specific [place] 1.009 Urine Protein 3+ H Urine Glucose (UA) 3+ H D Urine Ketones Negative Urine Blood 1+ H Urine Nitrite Negative Urine Bilirubin Negative Urine Urobilinogen Negative Ur Leukocyte Esterase Trace Urine WBC (Auto) 6 Urine RBC (Auto) 3 Ur Epithelial Cells Moderate Urine Bacteria Rare Hyaline Casts 2 Urine Mucus Rare 10/08/17 10/08/17 07:01 11:38 WBC RBC Hgb Hct MCV MCH MCHC RDW Plt Count MPV Anticoagulation Therapy Puncture Site ABG pH ABG pCO2 at Pt Temp ABG pO2 at Pt Temp ABG HCO3 ABG O2 Sat (Measured) ABG O2 Content ABG Base Excess Mik Test VBG pH POC VBG pCO2 POC VBG pO2 Mixed VBG HCO3 O2 Delivery Device Oxygen Flow Rate Vent Mode Vent Rate Mechanical Rate Pressure Support Vent Sodium Potassium Chloride Carbon Dioxide Anion Gap BUN Creatinine POC Glucometer 326 252 Random Glucose Calcium Troponin I Urine Color Urine Appearance Urine pH Ur Specific [place] Urine Protein Urine Glucose (UA) Urine Ketones Urine Blood Urine Nitrite Urine Bilirubin Urine Urobilinogen Ur Leukocyte Esterase Urine WBC (Auto) Urine RBC (Auto) Ur Epithelial Cells Urine Bacteria Hyaline Casts Urine Mucus Physical Exam: NAD ,looks more comfortable CV: RRR, possible 2/6 Sm at RUSB. Lungs: improved air entry, scattered wheezes, prolonged exp phase, rales all over EXT : no edema , no erythema Abd : soft, NT, ND , NL BS , lower mid line scar. ASSESSMENT AND PLAN: 57 y/o lady with h/o HTN, Asthma, s/p intubation, gall bladder cancer s/p CCY , diastolic CHF and other medical problems who presented with SOB and was found to have asthma exacerbation 1- Acute asthma exa. No evidence of PNA - Cont prednisone 60 BID - Nebs standing and PRN - cont advir dose at 250/50 - check a flu swab , not done yet - cont Mucomyst - hold off Abx 2- DM - levemir 40 daily - SSI 3- RODRIGUEZ: likely due to prerenal etiology form volume depletion given her acute sickness and diarrhea . no signs of heart failure - renal US with no hydro - cont IVF - hold lasix - urine electrolytes still pending to calculate FeNA - renal consult 5- H/o diastolic CHF: volume depleted now . last echo last admission reviewed. - cont to hold home lasix 6- Chronically elevated ASt and ALK Phos , probably related to her h/o gall bladder cancer and surgery - US with no dilation in CBD but course texture of liver? cirrhosis akilah with enlarged spleen . w/u as out pt - alcohol level and toxicology not done yet 7- Normocytic anemia: iron studies last admission with evidence of ACD . monitor DVT and GI prophylaxis Visit type - Emergency Visit Emergency Visit: Yes ED Registration Date: 10/07/17 Care time: The patient presented to the Emergency Department on the above date and was hospitalized for further evaluation of their emergent condition. - New Patient This patient is new to me today: No - Critical Care Critical Care patient: No
[2017-10-08] MEDS: SODIUM CHLORIDE 1,000 ML IV SCH (17:10)
[2017-10-08 20:58] LABS: METHADONE, UR NEGATIVE ng/ml (CUTOFF=300); OPIATES, URI NEGATIVE ng/ml (CUTOFF=300); PHENCYCLIDINE,URINE NEGATIVE ng/ml (CUTOFF=25); URINE AMPHETAMINES NEGATIVE ng/ml (CUTOFF=500); URINE BARBITURATES NEGATIVE ng/ml (CUTOFF=200); URINE BENZODIAZEPINES NEGATIVE ng/ml (CUTOFF=200)
[2017-10-08 21:00] LABS: COCAINE, UR POSITIVE ng/ml (CUTOFF=300)
[2017-10-08] MEDS ORDERED: LORazepam 1 MG TABLET PO ONE (21:53)
[2017-10-08] MEDS ORDERED: INSULIN (NOVOLOG) ASPART 100 UNITS/ML 10ML VIAL SQ ONE (21:55)
[2017-10-09] MEDS: SODIUM CHLORIDE 1,000 ML IV SCH (01:38)
[2017-10-09] MEDS: ALBUTEROL SO4 0.083% IH SOL 2.5 MG/3 ML VIAL.NEB. NEB PRN ×2 (02:38→06:10)
[2017-10-09] MEDS: HEPARIN NA (PORCINE) 5,000 UNITS/ML 1ML VIAL SQ SCH ×2 (06:38→13:23)
[2017-10-09] MEDS: INSULIN DETEMIR 100 UNITS/ML MDV SQ SCH (06:41)
[2017-10-09] MEDS: INSULIN SLIDING SCALE (NOVOLOG) 1 VIAL SQ SCH ×2 (06:42→11:27)
[2017-10-09] MEDS: ACETYLCYSTEINE 20% 200MG/ML 30 ML VIAL *FOR ORAL / INH USE ONLY NEB SCH ×2 (07:40→11:39)
[2017-10-09] MEDS: ALBUTEROL SO4 0.083% IH SOL 2.5 MG/3 ML VIAL.NEB. NEB SCH ×2 (07:40→11:39)
[2017-10-09 08:22] LABS: ALBUMIN 2.3 g/dl (3.4-5.0); ANION GAP 11 (8-16); BILIRUBIN,TOTAL 0.5 mg/dL (0.2-1.0); BLOOD UREA NITROGEN 55 mg/dL (7-18); CALCIUM 8.4 mg/dL (8.5-10.1); CHLORIDE 107 mmol/L (98-107); CO2 22 mmol/L (21-32); GLUCOSE,RANDOM 182 mg/dL (74-106); POTASSIUM 3.8 mmol/L (3.5-5.1); SGOT/AST 36 U/L (15-37); SGPT/ALT 37 U/L (12-78); SODIUM 140 mmol/L (136-145)
[2017-10-09 08:23] LABS: ALK PHOS 214 U/L (45-117); CREATININE 3.7 mg/dL (0.55-1.02); TOT PROT 6.9 g/dl (6.4-8.2)
[2017-10-09] MEDS ORDERED: PT OWN MED DRAWER 7, Y5N ONE (09:19)
[2017-10-09] MEDS: predniSONE 20 MG TABLET (UD) PO SCH (09:29)
[2017-10-09] MEDS: PANTOPRAZOLE 40 MG TABLET (FP) PO SCH (09:30)
[2017-10-09] MEDS: amLODIPine BESYLATE 10 MG TABLET (FP) PO SCH (09:30)
[2017-10-09] MEDS: FLUTICASONE/SALMETEROL 100 MCG/50 MCG DISKUS IH SCH (09:37)
--- NOTE | 2017-10-09 10:43 | CON.NEP ---
Consult Consult Specialty:: Nephrology Referred by:: Dr. Mack Reason for Consultation:: RODRIGUEZ vs. CKD - History of Present Illness Chief Complaint: SOB History of Present Illness: This is a 57 year old woman with PMhx of IDDM x 10 years with diabetic retinopathy and neuropathy, Hypertension, Hx of Gallbladder Ca s/p resection, Asthma, CKD who presented with SOB and admitted for Asthma Exacerbation. Pt was told in the past that she had some decrease in her kidney disease but she could nto provide any fore information. Pt reports chronic NSAID use as well. No flank pain or history of kidney stones. No hematuria. Pt is on Lasix for LE edema. No rash, fever, chills, N/V/D. SOB has improved. - History Source History Provided By: Patient Limitations to Obtaining History: No Limitations - Past Medical History Cardio/Vascular: Yes: HTN. No: AFIB Pulmonary: Yes: Asthma Gastrointestinal: Yes: Cancer (gall bladder s/p surgery and chemo) Hepatobiliary: Yes: Cirrhosis Renal/: Yes: Renal Failure ...LMP: 11/11/13 Musculoskeletal: Yes: Other (left leg pain) Endocrine: Yes: Diabetes Mellitus - Past Surgical History Past Surgical History: Yes: Cholecystectomy - Alcohol/Substance Use Hx Alcohol Use: No - Smoking History Smoking history: Never smoked Have you smoked in the past 12 months: No Aproximately how many cigarettes per day: 0 - Social History Usual Living Arrangement: With Child ADL: Independent Home Medications - Allergies Allergies/Adverse Reactions: Allergies Allergy/AdvReac Type Severity Reaction Status Date / Time No Known Allergies Allergy Verified 10/07/17 11:22 - Home Medications Home Medications: Ambulatory Orders Albuterol 0.083% Nebulizer Chica [Ventolin 0.083% Nebulizer Soln -] 1 neb NEB Q6H PRN 10/07/17 Albuterol Sulfate Inhaler - [Ventolin Hfa Inhaler -] 2 inh PO Q6H PRN 10/07/17 Amlodipine Besylate [Norvasc -] 10 mg PO DAILY 10/07/17 Fluticasone/Salmeterol [Advair Hfa 45-21 Mcg Inhaler] 2 puff IH DAILY 10/07/17 Furosemide [Lasix] 40 mg PO BID 10/07/17 Insulin Glargine,Hum.rec.anlog [Lantus Solostar] 40 unit SQ AM 10/07/17 Metoclopramide HCl [Reglan] 10 mg PO DAILY PRN 10/07/17 Oxycodone HCl/Acetaminophen [Percocet 10-325 mg Tablet] 10 - 325 tablet PO Q6H PRN MDD 4 10/07/17 Family Disease History - Family Disease History Family Disease History: Diabetes: Mother, CA: Father, Mother Review of Systems - Review of Systems Constitutional: reports: No Symptoms Eyes: reports: No Symptoms HENT: reports: No Symptoms Neck: reports: No Symptoms Cardiovascular: reports: No Symptoms Respiratory: reports: Cough, SOB, SOB on Exertion Gastrointestinal: reports: No Symptoms Genitourinary: reports: No Symptoms Musculoskeletal: reports: No Symptoms Integumentary: reports: No Symptoms Neurological: reports: No Symptoms Nephrology Consult - Height Height: 5 ft 4 in - Weight Weight: 87.77 kg - BMI Body Mass Index (BMI): 33.2 - Lab Results CBC,BMP: CBC, BMP 10/08/17 06:00 10/09/17 06:30 Anion Gap: Anion Gap Anion Gap 11 (8-16) 10/09/17 06:30 - Imaging Chest X-ray: Report Reviewed Ultrasound: Report Reviewed - Physical Examination Vital Signs: Vital Signs Temperature 97.7 F 10/09/17 06:00 Pulse Rate 82 10/09/17 06:00 Respiratory Rate 20 10/09/17 06:00 Blood Pressure 144/78 10/09/17 06:00 O2 Sat by Pulse Oximetry (%) 100 10/08/17 21:00 Constitutional: Yes: No Distress Eyes: Yes: Conjunctiva Clear HENT: Yes: Atraumatic Neck: Yes: Supple Cardiovascular: Yes: Regular Rate and Rhythm. No: Murmur, Rub Respiratory: Yes: Regular, Cough, Diminished, SOB. No: Rales, Rhonchi Gastrointestinal: Yes: Normal Bowel Sounds, Abdomen, Obese. No: Soft, Tenderness Extremities: No: Cold, Cool, Cyanosis Edema: No Neurological: Yes: Alert, Oriented Assessment/Plan 57 year old woman with PMhx of IDDM x 10 years with diabetic retinopathy and neuropathy, Hypertension, Hx of Gallbladder Ca s/p resection, Asthma, CKD who presented with SOB and admitted for Asthma Exacerbation. #RODRIGUEZ on CKD vs Progressive CKD pt likely has underlying CKD from diabetic nephropathy given proteinuria, preserved kidney size but may have acute/subacute worsening of her renal function from hypoprofusion related to NSAIDs Pt has been on IVF w/o significant change in her renal function no acidosis, hyperkalemia, uremia to warrant dialysis at this time pt advised to avoid NSAIDS should continue to hold Lasix as pt w/o edema at this time can d/c IVF at this time serologic work up sent to determine if there is another cause for her CKD dose all meds for CrCl less then 20 #Asthma Exacerbation continue management as per primary #IDDM continue Insulin DM well controlled now #Hypertension continue amlodipine low salt diet no HEBERT/ARB given low eGFR our office contact information provided so she can follow up in our office Thank you Cornelius Mcekon DO
[2017-10-09 13:46] VITALS: BP 123/67; PULSE 79; TEMP 98.2
--- NOTE | 2017-10-09 16:26 | DS ---
Physical Exam: SUBJECTIVE: Patient seen and examined at bedside. She states that she feels better and needs to go home to take care of her children. Patient says she would like to leave AMA. Denies chest pain, SOB, fevers, chills, nausea, vomiting, diarrhea. OBJECTIVE: Vital Signs Period Temp Pulse Resp BP Sys/Jin Pulse Ox Last 24 Hr 97.7 F-98.3 F 62-99 20-20 120-144/52-78 97-100 PHYSICAL EXAM GENERAL: The patient is awake, alert, and fully oriented, in no acute distress. HEAD: Normal with no signs of trauma. EYES: PERRL, extraocular movements intact, sclera anicteric, conjunctiva clear. ENT: Ears normal, nares patent, oropharynx clear without exudates, moist mucous membranes. NECK: Trachea midline, full range of motion, supple. LUNGS: Breath sounds equal, bilateral wheezing noted on exam. HEART: Regular rate and rhythm, S1, S2, 2/6 systolic murmur noted on exam ABDOMEN: Soft, nontender, nondistended, normoactive bowel sounds, no guarding, no rebound, no hepatosplenomegaly, no masses. EXTREMITIES: 2+ pulses, warm, well-perfused, 1+ pitting edema in b/l lower extremities NEUROLOGICAL: Cranial nerves II through XII grossly intact. Normal speech, gait not observed. PSYCH: Normal mood, normal affect. SKIN: Warm, dry, normal turgor, no rashes or lesions noted. LABS Laboratory Results - last 24 hr 10/08/17 10/08/17 10/08/17 03:00 06:00 15:00 Sodium Potassium Chloride Carbon Dioxide Anion Gap BUN Creatinine Creat Clearance w eGFR POC Glucometer Random Glucose Hemoglobin A1c % 5.1 D Calcium Total Bilirubin AST ALT Alkaline Phosphatase Total Protein Albumin Opiates Screen Negative Methadone Screen Negative Barbiturate Screen Negative Phencyclidine Screen Negative Ur Amphetamines Screen Negative MDMA (Ecstasy) Screen Negative Benzodiazepines Screen Negative Cocaine Screen Positive U Marijuana (THC) Screen Negative HIV 1&2 Antibody Screen Negative HIV P24 Antigen Negative 10/08/17 10/08/17 10/09/17 17:09 21:40 06:07 Sodium Potassium Chloride Carbon Dioxide Anion Gap BUN Creatinine Creat Clearance w eGFR POC Glucometer 230 255 202 Random Glucose Hemoglobin A1c % Calcium Total Bilirubin AST ALT Alkaline Phosphatase Total Protein Albumin Opiates Screen Methadone Screen Barbiturate Screen Phencyclidine Screen Ur Amphetamines Screen MDMA (Ecstasy) Screen Benzodiazepines Screen Cocaine Screen U Marijuana (THC) Screen HIV 1&2 Antibody Screen HIV P24 Antigen 10/09/17 10/09/17 06:30 11:24 Sodium 140 Potassium 3.8 Chloride 107 Carbon Dioxide 22 Anion Gap 11 BUN 55 H Creatinine 3.7 H Creat Clearance w eGFR 12.72 POC Glucometer 258 Random Glucose 182 H Hemoglobin A1c % Calcium 8.4 L Total Bilirubin 0.5 D AST 36 D ALT 37 Alkaline Phosphatase 214 H D Total Protein 6.9 Albumin 2.3 L Opiates Screen Methadone Screen Barbiturate Screen Phencyclidine Screen Ur Amphetamines Screen MDMA (Ecstasy) Screen Benzodiazepines Screen Cocaine Screen U Marijuana (THC) Screen HIV 1&2 Antibody Screen HIV P24 Antigen HOSPITAL COURSE: Date of Admission:10/07/17 This is a 57yo female with a past medical history of HTN, CHF, DM, pleural effusions, GB cancer, and asthma who was admitted to the hospital for the treatment of an acute asthma exacerbation. She was recently admitted for the treatment of an asthma exacerbation and left AMA 3 days ago. In the hospital, she was treated with prednisone, duonebs, advair, and mucomyst. Patient's diuretics were held due to poor kidney function. After 1 day, patient felt clinically improved and decided she wanted to leave AMA again to take care of her children. Patient left the hospital AMA but was given prescriptions and instructions for a tapering dose of steroids, albuterol inhaler and nebulizer, advair, levemir at home, insulin sliding scale, and referrals to GI Dr Fraire to evaluate possible cirrhosis found on liver ultrasound and Nephrology Dr. Mckeon to evaluate her kidney function. Date of Discharge: 10/09/17 Minutes to complete discharge: 35 Discharge Summary Reason For Visit: ASTHMA Condition: Fair - Instructions Diet, Activity, Other Instructions: You have been admitted to the hospital for an acute asthma exacerbation. It is important to follow the instructions listed below in order to prevent relapse and prevent re-hospitalization. Medical Recommendations: #For your Asthma 1. You will need to take Prednisone at a tapering dose at home. Please start at 60mg once a day, and decrease the dose by 5mg every two days. For example: Day 1: 60mg Day 2: 60mg Day 3: 55mg Day 4: 55mg Day 5: 50mg, etc.. etc... 2. Please take albuterol nebulizer at home every 4 hours as needed for shortness of breath 3. Please use your albuterol inhaler at home - 2 puffs every 6 hours as needed for shortness of breath 4. Please use Advair twice a day 5- hold your lasix until you follow with renal in 1 week . #For your Diabetes 1. Please take levemir 30 units every morning 2. Please use insulin based on your blood sugar levels as follows: Sugar Level Dose of Insulin 0-200 0 201-250 2 251-300 4 301-350 6 351-400 8 >400 10 and CALL YOUR DOCTOR Referrals: 1. Please make an appointment to see Dr. Shields (Kidney specialist) within 1 week of discharge to discuss your kidney function and medication regimen 2. Please make an appointment to see Dr. Fraire (restaurant kitchen manager) within 1 month of discharge to discuss abnormal liver findings and possible liver cirrhosis cirrhosis 3. Please make an appointment to see your primary care physician within 1 week of discharge. 4- check your sugar three tomes a day and report to your doctor . if sugar < 80 or > 300 call your MD and notify him/her If you experience severe shortness of breath and/or chest pain, please return to the emergency room immediately. Referrals: Rosalio Fraire MD [Staff Physician] - 3 Weeks Cornelius Mckeon MD [Staff Physician] - 1 Week Disposition: AGAINST MEDICAL ADVICE - Home Medications Comprehensive Discharge Medication List: Ambulatory Orders Albuterol Sulfate Inhaler - [Ventolin HFA Inhaler -] 2 inh PO Q6H PRN 10/07/17 Amlodipine Besylate [Norvasc -] 10 mg PO DAILY 10/07/17 Metoclopramide HCl [Reglan] 10 mg PO DAILY PRN 10/07/17 Oxycodone HCl/Acetaminophen [Percocet 10-325 mg Tablet] 10 - 325 tablet PO Q6H PRN MDD 4 10/07/17 Albuterol 0.083% Nebulizer Chica [Ventolin 0.083% Nebulizer Soln -] 1 amp NEB Q4H PRN #1 amp 10/09/17 Insulin (Levemir) [Levemir Vial] 30 units SQ AM #1 vial 10/09/17 Insulin Sliding Scale [Novolog Vial Sliding Scale -] See Protocol SQ TIDAC #1 vial 10/09/17 Prednisone [Deltasone -] See Taper PO ASDIR #78 tab 10/09/17 Salmeterol/Fluticasone [Advair 500Mcg/50Mcg -] 1 inh IH BID #1 inh 10/09/17 This patient is new to me today: Yes Date on this admission: 10/09/17 Emergency Visit: No Critical Care patient: No - Discharge Referral Referred to [facility] Med P.C.: No
--- NOTE | 2017-10-09 18:11 | PN ---
Teaching Attending Note Name of Resident: Reyes Potts ATTENDING PHYSICIAN STATEMENT I saw and evaluated the patient. I reviewed the resident's note and discussed the case with the resident. I agree with the resident's findings and plan as documented. SUBJECTIVE: seen at 8:30 am No fever or chills. felt better today. OBJECTIVE: NAD ,looks more comfortable and awake CV: RRR, possible 2/6 Sm at RUSB. Lungs: improved air entry, scattered wheezes, prolonged exp phase,rales much improved r. ASSESSMENT AND PLAN: 57 y/o lady with h/o HTN, Asthma, s/p intubation, gall bladder cancer s/p CCY , diastolic CHF and other medical problems who presented with SOB and was found to have asthma exacerbation 1- Acute asthma exa. No evidence of PNA - Cont prednisone taper - Nebs standing and PRN - cont advir - check a flu swab , not done yet - cont Mucomyst - hold off Abx 2- DM - levemir 40 daily - SSI 3- RODRIGUEZ:case d/w Dr. Mckeon, might have diabetic nephropathy with an acute insult. IVF stopped as no improvement on those - renal US with no hydro - cont to hold lasix. she wants to leave ama , so she was advised to hold it until she follows with her PC 5- H/o diastolic CHF: volume depleted now - cont to hold home lasix 6- Chronically elevated ASt and ALK Phos , - US with no dilation in CBD but course texture of liver? cirrhosis [place]ilah with enlarged spleen . w/u as out pt given dr. Fraire number 7- Normocytic anemia: iron studies last admission with evidence of ACD . monitor decided to leave AMA , risks of worsening respiration , renal failure and severe hyper/hypoglycemia were explained to her , she stated to understand
[2017-10-11 00:07] LABS: COMPLEMENT TOTAL(CH50) 63 U/mL (42-60)
== END 2017-10-09 14:01 | disposition left against medical advice (07) | DRG 141 ==
LOC: JER 11:06 → JERBED 13:30 → J4S 10-08 02:19
PROVIDERS: ADMIT Internal Medicine; ATTEND Internal Medicine
DX: J45.901 Unspecified asthma with (acute) exacerbation (principal); I50.30 Unspecified diastolic (congestive) heart failure; E11.9 Type 2 diabetes mellitus without complications; N17.9 Acute kidney failure, unspecified; D64.9 Anemia, unspecified; Z79.4 Long term (current) use of insulin; I13.0 Hypertensive heart and chronic kidney disease with heart failure and stage 1 through stage 4 chronic kidney disease, or unspecified chronic kidney disease; E11.22 Type 2 diabetes mellitus with diabetic chronic kidney disease; N18.9 Chronic kidney disease, unspecified; E11.40 Type 2 diabetes mellitus with diabetic neuropathy, unspecified; E11.319 Type 2 diabetes mellitus with unspecified diabetic retinopathy without macular edema; E86.9 Volume depletion, unspecified
CPT/HCPCS: 36415; 36600; 71045-TC; 76700-TC; 76775-TC; 80048; 80053; 80074; 80307; 81003; 81015; 82436; 82550; 82553; 82570; 82803; 82962; 83036; 83520; 83605; 83735; 83880; 84100; 84133; 84156; 84300; 84484; 84540; 85025; 85027; 85610; 85730; 86038; 86162; 86256; 86850; 86900; 86901; 87040; 87086; 87389; 87804; 93005; 93010; 94640; 99285-25; J1644

== ENCOUNTER 2018-07-27 17:59 | Inpatient (IN) | payer OTHER ==
--- NOTE | 2018-07-27 18:21 | PDOC ---
History of Present Illness - General Chief Complaint: Shortness of Breath Stated Complaint: SOB Time Seen by Provider: 07/27/18 18:09 - History of Present Illness Initial Comments: 58yo F with PMH of CHF, asthma, chronic renal insufficiency on dialysis TuThSa, gallbladder cancer s/p cholecystectomy presenting with many complaints including shortness of breath for the past week. Patient has used her inhaler at home with little relief. She reports being intubated twice and has had thoracentesis for large pleural effusions. Patients last dialysis session was complete on Monday. She missed her session because she felt like giving up. Denies SI or HI. She denies a history of mental health problems, but has talked to a therapist in the past. Patient reports chest pain and abdominal pain that she has had chronically. Denies nausea or vomiting, but has had diarrhea for one day. No fevers or chills. Past History - Past Medical History Allergies/Adverse Reactions: Allergies Allergy/AdvReac Type Severity Reaction Status Date / Time No Known Allergies Allergy Verified 07/27/18 18:14 Home Medications: Ambulatory Orders Albuterol Sulfate Inhaler - [Ventolin HFA Inhaler -] 2 inh PO Q6H PRN 10/07/17 Amlodipine Besylate [Norvasc -] 10 mg PO DAILY 10/07/17 Albuterol 0.083% Nebulizer Chica [Ventolin 0.083% Nebulizer Soln -] 1 amp NEB Q4H PRN #1 amp 10/09/17 Insulin (Levemir) [Levemir Vial] 30 units SQ AM #1 vial 10/09/17 Salmeterol/Fluticasone [Advair 500Mcg/50Mcg -] 1 inh IH BID #1 inh 10/09/17 Anemia: No Asthma: Yes Cancer: Yes (H/O GALLBLADDER: 2013) Cardiac Disorders: No CVA: No COPD: No CHF: Yes Dementia: No Diabetes: Yes Dialysis: Yes GI Disorders: No Disorders: No HTN: Yes Hypercholesterolemia: No Liver Disease: No Seizures: No Thyroid Disease: No - Surgical History Abdominal Surgery: Yes Appendectomy: No Cardiac Surgery: No Cholecystectomy: Yes Lung Surgery: No Neurologic Surgery: No Orthopedic Surgery: No - Immunization History Immunization Up to Date: Yes - Suicide/Smoking/Psychosocial Hx Smoking Status: Yes Smoking History: Never smoked Have you smoked in the past 12 months: No Number of Cigarettes Smoked Daily: 0 Information on smoking cessation initiated: No Hx Alcohol Use: No Drug/Substance Use Hx: No Substance Use Type: None Review of Systems - Review of Systems Comments:: Constitutional: no fever, no chills HEENT: no throat pain, no dysphagia Cardiovascular: +chest pain, no palpitations Respiratory: +cough, +shortness of breath Gastrointestinal: +abdominal pain, no nausea, no vomiting, +diarrhea Genitourinary: no dysuria, no frequency Musculoskeletal: no myalgia, no arthralgia Skin: no rash, +itching Neurologic: no headache, no dizziness *Physical Exam - Vital Signs Last Vital Signs Temp Pulse Resp BP Pulse Ox 97.9 F 84 18 138/84 100 07/27/18 18:12 07/27/18 18:12 07/27/18 18:12 07/27/18 18:12 07/27/18 18:12 - Physical Exam Comments: General: Awake, alert, and fully oriented; patient appears anxious Head: No signs of trauma Eyes: EOMI, yellow sclera ENT: Dry mucus membranes Neck: Normal ROM, supple Lungs: Diffuse wheezes bilaterally Cardio: Regular rhythm, S1 and S2 present Abdomen: Tender to palpation in the epigastrium. Soft, nondistended Extremities: Normal range of motion, Distal pulses present SKIN: Warm, Dry, normal turgor Neurologic: Cranial nerves II through XII grossly intact. Normal speech ED Treatment Course - LABORATORY CBC & Chemistry Diagram: 07/29/18 08:00 07/29/18 08:00 Medical Decision Making - Medical Decision Making Patient not present in Bed 11B 07/27/18 18:20 58yo F with PMH of CHF, asthma, chronic renal insufficiency on dialysis TuThSa, gallbladder cancer s/p cholecystectomy presenting with many complaints including shortness of breath for the past week. -DDX includes but not limited to CHF exacerbation, asthma exacerbation, COPD, pneumonia -Labs -EKG -Duonebs -Will reassess 07/27/18 20:02 Hyponatremia, Xv=157 Hgb=9.9, which is near patient's baseline Hypoglycemia, Glc=62 Cr=9.3 BNP= 536.8 Lipase= 792 07/27/18 21:45 Patient with improved exam after receiving duonebs 07/27/18 22:49 Utox positive for cocaine 07/27/18 23:20 Discussed case with inpatient team who accepted patient for admission under attending, Dr. Acevedo *DC/Admit/Observation/Transfer Diagnosis at time of Disposition: Shortness of breath, Congestive heart failure (CHF), Anxiety, Asthma, Chronic renal insufficiency, Missed dialysis - Discharge Dispostion Condition at time of disposition: Guarded Decision to Admit order: Yes - Referrals - Patient Instructions - Post Discharge Activity
--- NOTE | 2018-07-27 19:32 | PDOC ---
Attending Attestation - HPI HPI: 07/27/18 20:18 The patient is a 58 year old female with a significant PMH of asthma, CHF, gallbladder ca, and on dialysis (TThSa) who presents to the emergency department with shortness of breath for several days. The patient reports that she has been using her inhaler when needed with no apparent relief. She reports intentionally missing her dialysis appointment yesterday. She reports some symptoms of tiredness, leg swelling, epigastric pain and chronic chest pain. She denies any suicidal ideations or hallucination. She denies any fever, chills ,nausea, vomiting, diarrhea, constipation or urinary symptoms. She denies any other symptoms or complaints. - Physicial Exam PE: 07/27/18 20:18 GENERAL: Awake, alert, and fully oriented, in no acute distress HEAD: No signs of trauma EYES: PERRLA, EOMI, sclera anicteric, conjunctiva clear ENT: Auricles normal inspection, hearing grossly normal, nares patent, oropharynx clear without exudates. Moist mucosa NECK: Normal ROM, supple, no lymphadenopathy, JVD, or masses LUNGS: (+)wheezing in the left and decreased breath sounds in right. No crackles HEART: Regular rate and rhythm, normal S1 and S2, no murmurs, rubs or gallops ABDOMEN: Soft, nontender, normoactive bowel sounds. No guarding, no rebound. No masses EXTREMITIES: (+)bilateral leg swelling 2+ pitting edema. Normal range of motion , no edema. No clubbing or cyanosis. No cords, erythema, or tenderness NEUROLOGICAL: Cranial nerves II through XII grossly intact. Normal speech, normal gait SKIN: Warm, Dry, normal turgor, no rashes or lesions noted. Documentation prepared by Evi Archer, acting as medical office asst for Kim Olson MD. <Evi Archer - Last Filed: 07/27/18 20:18> - Resident Resident Name: Yoana Romero - ED Attending Attestation I have performed the following: I have examined & evaluated the patient, The case was reviewed & discussed with the resident, I agree w/resident's findings & plan - Medical Decision Making 07/27/18 19:41 Pt with bilateral wheezing left >> right. Pt has a stable O2sat on 2L NC of 100% . She is sleeping comfortably. 11/03/18 00:30 Pt woke up and she is telling us that her entire body hurts. She complains of diarrhea all day yesterday. She likely has a viral illness. Pt has hyponatremia ; she has slight fluid overload as she missed 1 dialysis session, and her UTOX is positive for cocaine. Pt will be admitted for evaluation and for dialysis and for hyponatremia and hypoglycemia and elevated lipase - pt denies alcohol use. She has hx of GB cancer/biliary disease and likelye;evated lipase and alk phos and pt's icterus is due to that.. 07/28/18 00:32 <Kim Olson - Last Filed: 07/28/18 00:33>
[2018-07-27] MEDS ORDERED: ALBUTEROL SO4 2.5/IPRATROPIUM 0.5 INH SOL 3 ML VIAL.NEB. NEB ONE ×3 (19:38→21:26)
[2018-07-27 20:28] LABS: BASO % 0.9 % (0-2.0); EOS % 2.9 % (0-4.5); HEMATOCRIT 28.8 % (32.4-45.2); HEMOGLOBIN 9.9 GM/dL (10.7-15.3); LYMPH % 15.7 % (8-40); MCH 28.2 pg (25.7-33.7); MCHC 34.4 g/dl (32.0-36.0); MEAN CELL VOLUME 81.9 fl (80-96); MEAN PLT VOLUME 9.9 fl (7.5-11.1); MONO % 11.5 % (3.8-10.2); PLATELET COUNT 52 K/MM3 (134-434); RBC 3.52 M/mm3 (3.60-5.2); RDW 15.5 % (11.6-15.6); WHITE BLOOD COUNT 5.6 K/mm3 (4.0-10.0)
[2018-07-27 20:43] LABS: INR 1.02 (0.83-1.09)
[2018-07-27 20:46] LABS: ACTIVATED PTT 36.5 SECONDS (25.2-36.5)
[2018-07-27 20:54] LABS: ALBUMIN 2.8 g/dl (3.4-5.0); ALK PHOS 205 U/L (45-117); ANION GAP 16 MMOL/L (8-16); BILIRUBIN,TOTAL 1.1 mg/dL (0.2-1); BLOOD UREA NITROGEN 76 mg/dL (7-18); CALCIUM 8.3 mg/dL (8.5-10.1); CHLORIDE 93 mmol/L (98-107); CO2 19 mmol/L (21-32); GLUCOSE,RANDOM 62 mg/dL (74-106); LIPASE 792 U/L (73-393); N-TERMINAL BNP 536.8 pg/ml (5-125); POTASSIUM 4.6 mmol/L (3.5-5.1); SGOT/AST 59 U/L (15-37); SGPT/ALT 34 U/L (13-61); SODIUM 129 mmol/L (136-145); TOT PROT 7.5 g/dl (6.4-8.2)
[2018-07-27 20:56] LABS: CREATININE 9.3 mg/dL (0.55-1.3)
[2018-07-27] MEDS ORDERED: SODIUM CHLORIDE 250 ML IV STA (21:44)
[2018-07-27 22:56] LABS: URINE APPEARANCE SLCLOUDY; URINE BILIRUBIN NEGATIVE (<2.0 mg/dL); URINE COLOR LTYELLOW; URINE GLUCOSE (UA) NEGATIVE (NEGATIVE); URINE KETONE NEGATIVE (NEGATIVE); URINE LEUK ESTERASE 3+ (NEGATIVE); URINE NITRITE NEGATIVE (NEGATIVE); URINE PROTEIN 2+ (NEGATIVE)
--- NOTE | 2018-07-27 22:57 | HP ---
CHIEF COMPLAINT:sever abdominal pain. PCP: HISTORY OF PRESENT ILLNESS: The patient is a 58 year old female with a significant PMH of asthma, CHF, gallbladder ca, and on dialysis (TThSa) who presents to the emergency department with shortness of breath for several days. The patient reports that she has been using her inhaler when needed with no apparent relief. She reports intentionally missing her dialysis appointment yesterday. She reports some symptoms of tiredness, leg swelling, epigastric pain and chronic chest pain. She denies any suicidal ideations or hallucination. She denies any fever, chills ,nausea, vomiting, diarrhea, constipation or urinary symptoms. She denies any other symptoms or complaints. ER course was notable for: (1)cbc, bmp (2)blood cx , urine cx (3)urine tox Recent Travel: None PAST MEDICAL HISTORY: HTN CHF DM2 Pleural effusions Asthma GB Cancer ESRD on HD PAST SURGICAL HISTORY: GB removal Thoracentesis for large pleural effusion Social History: Smoking: Never Alcohol: Denies Drugs: Denies Family History: 4/6 siblings with asthma Allergies No Known Allergies Allergy (Verified 07/27/18 18:14) HOME MEDICATIONS: Home Medications Medication Instructions Recorded Albuterol Sulfate Inhaler - 2 inh PO Q6H PRN 10/07/17 [Ventolin HFA Inhaler -] Amlodipine Besylate [Norvasc -] 10 mg PO DAILY 10/07/17 Metoclopramide HCl [Reglan] 10 mg PO DAILY PRN 10/07/17 Oxycodone HCl/Acetaminophen 10 - 325 tablet PO Q6H PRN MDD 4 10/07/17 [Percocet 10-325 mg Tablet] Albuterol 0.083% Nebulizer [place] 1 amp NEB Q4H PRN #1 amp 10/09/17 [Ventolin 0.083% Nebulizer Soln -] Insulin (Levemir) [Levemir Vial] 30 units SQ AM #1 vial 10/09/17 Insulin Sliding Scale [Novolog See Protocol SQ TIDAC #1 vial 10/09/17 Vial Sliding Scale -] Salmeterol/Fluticasone [Advair 1 inh IH BID #1 inh 10/09/17 500Mcg/50Mcg -] predniSONE [Deltasone -] See Taper PO ASDIR #78 tab 10/09/17 REVIEW OF SYSTEMS CONSTITUTIONAL: Absent: fever, chills, diaphoresis, generalized weakness, malaise, loss of appetite, weight change HEENT: Absent: rhinorrhea, nasal congestion, throat pain, throat swelling, difficulty swallowing, mouth swelling, ear pain, eye pain, visual changes CARDIOVASCULAR: Absent: chest pain, syncope, palpitations, irregular heart rate, lightheadedness , peripheral edema RESPIRATORY: Absent: cough, shortness of breath, dyspnea with exertion, orthopnea, wheezing, stridor, hemoptysis GASTROINTESTINAL: Absent: abdominal pain, abdominal distension, nausea, vomiting, diarrhea, constipation, melena, hematochezia GENITOURINARY: Absent: dysuria, frequency, urgency, hesitancy, hematuria, flank pain, genital pain MUSCULOSKELETAL: Absent: myalgia, arthralgia, joint swelling, back pain, neck pain SKIN: Absent: rash, itching, pallor HEMATOLOGIC/IMMUNOLOGIC: Absent: easy bleeding, easy bruising, lymphadenopathy, frequent infections ENDOCRINE: Absent: unexplained weight gain, unexplained weight loss, heat intolerance, cold intolerance NEUROLOGIC: Absent: headache, focal weakness or paresthesias, dizziness, unsteady gait, seizure, mental status changes, bladder or bowel incontinence PSYCHIATRIC: Absent: anxiety, depression, suicidal or homicidal ideation, hallucinations. PHYSICAL EXAMINATION Vital Signs - 24 hr 07/27/18 07/27/18 18:12 20:28 Temperature 97.9 F Pulse Rate 84 Respiratory 18 Rate Blood Pressure 138/84 O2 Sat by Pulse 100 98 Oximetry (%) GENERAL: Awake, alert, and fully oriented but lethargic ,and arousable HEAD: Normal with no signs of trauma. EYES: Pupils equal, round and reactive to light, exophthalmus B/L NECK: Normal range of motion, supple LUNGS: decrease breath sounds with expiratory wheezing HEART: Regular rate and rhythm, normal S1 and S2 without murmur, rub or gallop. ABDOMEN: obese Soft, diffuse tenderness , normoactive bowel sounds, LOWER EXTREMITIES: 2+ pulses, warm, well-perfused. No calf tenderness. No peripheral edema. NEUROLOGICAL: no focal deficit . Normal speech. PSYCHIATRIC: lethargic and arousable with difficult attitude , SKIN: Warm, dry, no signs of drug injections Laboratory Results - last 24 hr 07/27/18 07/27/18 07/27/18 19:52 19:52 19:52 WBC 5.6 RBC 3.52 L Hgb 9.9 L Hct 28.8 L MCV 81.9 MCH 28.2 MCHC 34.4 RDW 15.5 D Plt Count 52 L D MPV 9.9 Absolute Neuts (auto) 3.8 Neutrophils % 69.0 Lymphocytes % 15.7 D Monocytes % 11.5 H Eosinophils % 2.9 Basophils % 0.9 Nucleated RBC % 0 PT with INR 12.00 INR 1.02 PTT (Actin FS) 36.5 Sodium Potassium Chloride Carbon Dioxide Anion Gap BUN Creatinine Creat Clearance w eGFR Random Glucose Lactic Acid 1.2 Calcium Total Bilirubin AST ALT Alkaline Phosphatase Troponin I B-Natriuretic Peptide Total Protein Albumin Lipase 07/27/18 20:15 WBC RBC Hgb Hct MCV MCH MCHC RDW Plt Count MPV Absolute Neuts (auto) Neutrophils % Lymphocytes % Monocytes % Eosinophils % Basophils % Nucleated RBC % PT with INR INR PTT (Actin FS) Sodium 129 L Potassium 4.6 Chloride 93 L Carbon Dioxide 19 L Anion Gap 16 BUN 76 H Creatinine 9.3 H* Creat Clearance w eGFR 4.37 Random Glucose 62 L Lactic Acid Calcium 8.3 L Total Bilirubin 1.1 H AST 59 H ALT 34 Alkaline Phosphatase 205 H Troponin I 0.12 H B-Natriuretic Peptide 536.8 H Total Protein 7.5 Albumin 2.8 L Lipase 792 H CBC, BMP 07/27/18 19:52 07/27/18 20:15 ASSESSMENT/PLAN: 57 yo woman w/ pmh of asthma, DM2, CHF, HTN and ESRD on HD T, , Sat who was BIBEMS due to one week of worsening SOB, cough and wheezing, now with chest tightness and abdominal pain . # Abdominal pain * mostly non specific. * mildly elevated lipase. * previous imaging shows enlarged pancreas but no imaging on this admission. * MRCP in AM #Encephalopathy likley due to missed HD #ESRD on HD * consult nephro * HD in AM # cocain abuse educated about drugs abuse and side effects. #Acute on chronic asthma exacerbation * Satting low 98% on room air; BL coarse breath sounds, wheezing;; pt takes ventolin, advair at home * Ventolin Nebs Q4h PRN * Duonebs QIDR * Vitals Q4H * Start home advair * 2L O2 NC. Titrate to >97% sat * Stat ABG * Peak flow measurement # CKD * on HD T, Th, Sat , missed her last session * BUN/Cr 50/3.8 during current admission; likely pre-renal due to decreased PO intake/recent diarrhea * Daily BMPs * Avoid nephrotoxic agents * nephrology consult Dr anderson #Elevated Trops - Trop I 0.12 on this admission; Likely demand ischemia secondary to elevated pulm pressures vs renal failure * Trend trops * f/u ECHO * Serial EKGs * Monitor for worsening chest pain #DM2 * Confirm home regimen in AM * cont home lantus * BGM q4h * ISS #CHF - BNP 536; pt does not follow with director of medical review; not clinically overloaded * Echo pending * daily weight , daily I & O * Avoid IVFs * #HTN * Hydralysin PRN to keep systolic bp below 180 # Normocytic anemia - Hgb 9.9/28.9 on admission;likley due to CKD * iron studies * B12/folate * Will require out pt w/u of anemia #PPX * Heparin Subq, SCDs * PPI #FEN * no standing fluids for now * Daily BMPs, monitor elevated Cr * NPO for now , Sodium-restricted diet (<2g /day) after more awake I tried to call pharmacy multiple time to verify medicine there was no answer Visit type - Emergency Visit Emergency Visit: Yes ED Registration Date: 07/27/18 Care time: The patient presented to the Emergency Department on the above date and was hospitalized for further evaluation of their emergent condition. - New Patient This patient is new to me today: Yes Date on this admission: 07/27/18 - Critical Care Critical Care patient: No
[2018-07-27 23:02] LABS: EPI CELLS MODERATE /HPF (FEW); URINE BACTERIA FEW /hpf (NONE SEEN); URINE MUCUS RARE
[2018-07-27 23:10] LABS: METHADONE, UR NEGATIVE ng/ml (CUTOFF=300); OPIATES, URI NEGATIVE ng/ml (CUTOFF=300); PHENCYCLIDINE,URINE NEGATIVE ng/ml (CUTOFF=25); URINE AMPHETAMINES NEGATIVE ng/ml (CUTOFF=500); URINE BARBITURATES NEGATIVE ng/ml (CUTOFF=200); URINE BENZODIAZEPINES NEGATIVE ng/ml (CUTOFF=200)
--- NOTE | 2018-07-27 23:12 | PN ---
Teaching Attending Note Name of Resident: Jonathan Wright ATTENDING PHYSICIAN STATEMENT I saw and evaluated the patient. I reviewed the resident's note and discussed the case with the resident. I agree with the resident's findings and plan as documented. SUBJECTIVE: Seen and examined; 58 y/o AAF presenting with missed dialysis and full body pains with concentration on her abdomen and with chest discomfort. Her symptoms are, unfortunately, extraordinarily vague and she is a difficult historian. She is on TTS HD via R-subclav permacath and missed her session because she felt sick with nonspecific symptoms. She developed worsening abdominal pain and chest pain and subjective SOB though she is saturating well on RA. She tells me that she has felt this way when she missed HD before. She has been here several times over the past 5 years; significantly she has a history of leaving AMA from our hospital. She has a history of gallbladder cancer treated back in 2013 with chemo and surgery. Per our conversation she doesn't followup with any GI doctor or oncologist. She doesnt have a recent cardiac workup on file here. Interestingly, she had CKD when she was last here but she did NOT require HD. When asked when she ended up on dialysis she tells us it was "like a year ago;" when asked about the circumstances she was unable to tell us when, why, or how she ended up on dialysis. 10 sys ROS done and was negative aside from HPI PMH and PSH per chart FH asked and noncontributory Social history was difficult to obtain with patient's mentation, but she does have a +Utox for cocaine OBJECTIVE: VS, labs, imaging reviewed NAD, resting in bed, sleepy, poor hygeine CN2-12 grossly intact no FND Pain to palpation with even light touch over tender points on legs, shoulders, arms. Abdomen tender to palpation on right side Poor insight and judgement with flat affect and poor thought progression +1 edema b/l in LE with legs Lipase 792 (has been much higher in past), BNP 536, trop 0.12, Alk Phos 205 ( chronically high though), AST/ALT 59/34, Bili 1.1; she is uremic with BUN @76 and Cr 9.3; slight metabolic acidosis noted on BMP MRCP w/ contrast ordered and pending; will need to coordinate with renal given the contrast. US GB reviewed from last admission; liver appears cirrhotic with a prominant pancreatic head. Splenomegaly noted. Medical renal disease. ASSESSMENT AND PLAN: Patient is a 58 y/o AAF presenting with missed HD; she has a history of gallbladder CA and poor followup and is found to have an elevated lipase with nonspecific elevations in LFTs and cirrhosis diagnosed at her last visit for which she left AMA that she has not followed up for. She will be admitted to medicine. 1) ESRD on HD, missed HD -Nephrology to be contacted tonight for HD; no refractory hyperkalemia, refractory acidosis. Slightly uremic and difficult historian but not dangerously altered. K wnl. -Monitor BMP, monitor fluid status -Management as per nephrology -Producer Assistant regarding HD compliance. 2) Elevated lipase, abdominal pain with history of fullness of pancreatic head seen on past US -She has not seen GI recently per the patient; furthermore she cant tell us what other hospitals she goes to (where she was started on HD) -Given her lab abnormalities, her PMH of gallbladder cancer, slight bump in her bilirubin, will consult GI and obtain MRCP. Would ideally like to get the MRCP with contrast to better visualize the structures, but if this cannot be coordinated with HD may have to settle. -Trend CMP, monitor abdominal exam -We would like to empirically hydrate the patient, but given that her hemodynamics are stable and she is SOB with elevated BNP and missed HD she is at extreme risk for fluid overload so will avoid hydrating at this time. Should she become unstable will reconsider. -Renal retention could be playing a role with these lab abnormalities as well 3) Cocaine + Urine -Producer Assistant regarding cessasion when clinically appropriate 4) Slight encephalopathy -Not frankly altered but slow to respond and sleepy; likely secondary to uremia and possible cocaine. She does have a history of cirrhosis but she doesn't follow for it. No asterixis on exam. Will check a pneumonia. -Monitor serial neuro exams and await improvement post HD; if worsens or nothing improves then consider further workup 5) Atypical Chest pain in high risk patient -Patient did complain of nonspecific chest pain and couldnt furthe expound; she does have risk factors. We will go ahead and monitor on telemetry, trend troponins, and check echo. The positive trop seen now is likely strain due to the missed HD combined with cocaine use and high BP. Check echo and consider cardio consult in the morning. 6) Hypertensive urgency -Due to missed HD -Elucidate home BP meds and continue them; she is not reliable so we will need to talk to the pharmacy. I question if there is a possible element of noncompliance. Use PRN hydralazine to keep her controlled. 7) Elevated BNP -Could be renal retention but risks for CHF; no echo on file here. Check echo. Fluid management with HD. 8) Cirrhosis -Seen on old US; she does not follow with GI regularly -GI consulted; HIV and Hep C pending. -Will need outpatient scope, etc. 9) History of GB Cancer s/p resection/chemo 10) Chronic Hypoalbuminemia Full Code
[2018-07-27 23:17] LABS: COCAINE, UR POSITIVE ng/ml (CUTOFF=300)
[2018-07-28] MEDS ORDERED: hydrALAZINE HCL 20 MG/ML VIAL IVPUSH SCH (01:00)
[2018-07-28] MEDS ORDERED: ALBUTEROL SO4 0.5 % INH SOLN 2.5 MG/0.5 ML VIAL.NEB. NEB PRN (01:07)
[2018-07-28] MEDS ORDERED: HEPARIN NA (PORCINE) 5,000 UNITS/ML 1ML VIAL SQ SCH (06:00)
[2018-07-28] MEDS ORDERED: hydrALAZINE HCL 20 MG/ML VIAL IVPUSH PRN (06:24)
[2018-07-28] MEDS: INSULIN SLIDING SCALE (NOVOLOG) 1 VIAL SQ SCH ×4 (07:01→22:18)
--- NOTE | 2018-07-28 08:18 | PN ---
Progress Note (short form) - Note Progress Note: very emotional distraught and refused to answer questions. stated she is not discussing her personal information at this time because she has a right to her own privacy. cried out multiple times to help her in regards to her son Current Medications Generic Name Dose Route Start Last Admin Trade Name Freq PRN Reason Stop Dose Admin Albuterol Sulfate 1 amp 07/28/18 01:07 Ventolin 0.5% - NEB Q4H PRN SHORT OF BREATH/WHEEZING Albuterol/Ipratropium 1 amp 07/28/18 01:07 Duoneb - NEB Q6H PRN SHORTNESS OF BREATH Heparin Sodium (Porcine) 5,000 unit 07/28/18 06:00 07/28/18 07:01 Heparin - SQ Not Given TID NANCY Hydralazine HCl 10 mg 07/28/18 06:24 Apresoline Injection - IVPUSH Q8H PRN FOR SBP >180 Insulin Aspart 1 vial 07/28/18 07:00 07/28/18 07:01 Novolog Vial Sliding Scale - SQ Not Given ACHS NANCY Protocol Fluticasone/Salmeterol 1 puff 07/28/18 10:00 Advair 100mcg/50mcg - IH BID NANCY Last Vital Signs Temp Pulse Resp BP Pulse Ox 98.5 F 75 20 135/70 98 07/28/18 02:40 07/28/18 02:40 07/28/18 02:40 07/28/18 02:40 07/28/18 02:40 General emotional distraught. tearful and crying out for help refused physical exam CBCD WBC 5.6 K/mm3 (4.0-10.0) 07/27/18 19:52 RBC 3.52 M/mm3 (3.60-5.2) L 07/27/18 19:52 Hgb 9.9 GM/dL (10.7-15.3) L 07/27/18 19:52 Hct 28.8 % (32.4-45.2) L 07/27/18 19:52 MCV 81.9 fl (80-96) 07/27/18 19:52 MCHC 34.4 g/dl (32.0-36.0) 07/27/18 19:52 RDW 15.5 % (11.6-15.6) D 07/27/18 19:52 Plt Count 52 K/MM3 (134-434) L D 07/27/18 19:52 MPV 9.9 fl (7.5-11.1) 07/27/18 19:52 CMP Sodium 129 mmol/L (136-145) L 07/27/18 20:15 Potassium 4.6 mmol/L (3.5-5.1) 07/27/18 20:15 Chloride 93 mmol/L (98-107) L 07/27/18 20:15 Carbon Dioxide 19 mmol/L (21-32) L 07/27/18 20:15 Anion Gap 16 MMOL/L (8-16) 07/27/18 20:15 BUN 76 mg/dL (7-18) H 07/27/18 20:15 Creatinine 9.3 mg/dL (0.55-1.3) H* 07/27/18 20:15 Creat Clearance w eGFR 4.37 (>60) 07/27/18 20:15 Calcium 8.3 mg/dL (8.5-10.1) L 07/27/18 20:15 Total Bilirubin 1.1 mg/dL (0.2-1) H 07/27/18 20:15 AST 59 U/L (15-37) H 07/27/18 20:15 ALT 34 U/L (13-61) 07/27/18 20:15 Alkaline Phosphatase 205 U/L (45-117) H 07/27/18 20:15 Total Protein 7.5 g/dl (6.4-8.2) 07/27/18 20:15 Albumin 2.8 g/dl (3.4-5.0) L 07/27/18 20:15 A/P 58 y/o AAF with PMH ESRD on HD (TTS), cirrhosis, GB malignancy s/p resection and chemo, HTN and conitnuous cocaine depedence presenting with missed dialysis and full body pains with concentration on her abdomen and with chest discomfort. 1. Abdominal pain- mostly non specific. mildly elevated lipase. previous imaging shows enlarged pancreas but no imaging on this admission. MRCP pending to further evaluate. 2. Tropinemia- slight bump in tropoin. more likely due to renal failure however is having vague, non specific body aches. will trend cardiac enzymes. Echo pending. low suspicion for ACS 3. Vague discomfort- due to high risk and being HD patient. would check flu swab. would hold on hydrating at this time in setting of volume overload stated by night team. symptoms may also be due to missed HD however does not appear overtly uremic. 4. Thrombocytopnia- due to cirrhosis. slightly lower than previous admission. no signs of bleeding. no indication for treatment at this time 5. Continuous cocaine use-counselled on risks assoc with cocaine use 6. ESRD on HD-missed last session. no emergent indication for HD. today is regular scheduled day. Nephro to resume HD 7. HTN- controlled. cont home medications 8. GB malignancy- s/p resection and chemo. outpatient follow up 9. DVT ppx- SCD/EAM. would hold pharmacologic anticoagulation in setting of thrombocytopenia 10. As per RN, media marketing director called the floor. patient has been missing since . Her son has been taken in by child protective services and there is an order of protection against her. I do not believe she is aware of this information. as she told me she has been living in a fdc and that she found out this AM that her 13 year old son, Joyce, went missing. multiple attempts to reach fdc with patient where she was informed to call her social media marketing manager. Call also placed to boyfriend? with no response. Spoke with CM and informed her of information. pt is too distraught at this time to evaluate her clinically. psych consulted. Visit type - Emergency Visit Emergency Visit: Yes ED Registration Date: 07/27/18 Care time: The patient presented to the Emergency Department on the above date and was hospitalized for further evaluation of their emergent condition. - New Patient This patient is new to me today: Yes Date on this admission: 07/28/18 - Critical Care Critical Care patient: No - Discharge Referral Referred to [facility] Med [facility] No
--- NOTE | 2018-07-28 10:49 | CON.NEP ---
Consult Consult Specialty:: Nephrology - History of Present Illness Chief Complaint: not feeling well History of Present Illness: The patient is a 58 year old female with a significant PMH of asthma, CHF, gallbladder ca, and on dialysis (TThSa) who presents to the emergency department with shortness of breath for several days. The patient reports that she has been using her inhaler when needed with no apparent relief. She reports intentionally missing her dialysis appointment yesterday. She reports some symptoms of tiredness, leg swelling, epigastric pain and chronic chest pain. She denies any suicidal ideations or hallucination. She denies any fever, chills ,nausea, vomiting, diarrhea, constipation or urinary symptoms. She denies any other symptoms or complaints. She tells me that she just does not feel well. Does not want to be specific. Has abdominal pain. Mentioned to the nurse that she wanted to remove her permcath but when I asked her she said she would not. Has not been dialyzed in at least a week. - History Source Limitations to Obtaining History: Uncooperative - Past Medical History Cardio/Vascular: Yes: HTN. No: AFIB Pulmonary: Yes: Asthma Gastrointestinal: Yes: Cancer (gall bladder s/p surgery and chemo) Hepatobiliary: Yes: Cirrhosis Renal/: Yes: Renal Failure ...LMP: 11/11/13 Musculoskeletal: Yes: Other (left leg pain) Endocrine: Yes: Diabetes Mellitus - Past Surgical History Past Surgical History: Yes: Cholecystectomy - Alcohol/Substance Use Hx Alcohol Use: No - Smoking History Smoking history: Never smoked Have you smoked in the past 12 months: No Aproximately how many cigarettes per day: 0 - Social History Usual Living Arrangement: With Child ADL: Independent Home Medications - Allergies Allergies/Adverse Reactions: Allergies Allergy/AdvReac Type Severity Reaction Status Date / Time No Known Allergies Allergy Verified 07/27/18 18:14 - Home Medications Home Medications: Ambulatory Orders Albuterol Sulfate Inhaler - [Ventolin HFA Inhaler -] 2 inh PO Q6H PRN 10/07/17 Amlodipine Besylate [Norvasc -] 10 mg PO DAILY 10/07/17 Metoclopramide HCl [Reglan] 10 mg PO DAILY PRN 10/07/17 Oxycodone HCl/Acetaminophen [Percocet 10-325 mg Tablet] 10 - 325 tablet PO Q6H PRN MDD 4 10/07/17 Albuterol 0.083% Nebulizer Chica [Ventolin 0.083% Nebulizer Soln -] 1 amp NEB Q4H PRN #1 amp 10/09/17 Insulin (Levemir) [Levemir Vial] 30 units SQ AM #1 vial 10/09/17 Insulin Sliding Scale [Novolog Vial Sliding Scale -] See Protocol SQ TIDAC #1 vial 10/09/17 Salmeterol/Fluticasone [Advair 500Mcg/50Mcg -] 1 inh IH BID #1 inh 10/09/17 predniSONE [Deltasone -] See Taper PO ASDIR #78 tab 10/09/17 Family Disease History - Family Disease History Family Disease History: Diabetes: Mother, CA: Father, Mother Review of Systems Unable to obtain ROS, reason: poor historian - Review of Systems Constitutional: reports: Other (not feeling well) Gastrointestinal: reports: Abdominal Pain Psychiatric: reports: Anxiety Nephrology Consult - Height Height: 5 ft 4 in - Weight Weight: 210 lb - BMI Body Mass Index (BMI): 36.0 - Lab Results CBC,BMP: CBC, BMP 07/27/18 19:52 07/27/18 20:15 Anion Gap: Anion Gap Anion Gap 16 MMOL/L (8-16) 07/27/18 20:15 - Imaging Chest X-ray: Report Reviewed (sharp angles) - Physical Examination Vital Signs: Vital Signs Temperature 98.5 F 07/28/18 02:40 Pulse Rate 75 07/28/18 02:40 Respiratory Rate 20 07/28/18 02:40 Blood Pressure 135/70 07/28/18 02:40 O2 Sat by Pulse Oximetry (%) 98 07/28/18 02:40 Constitutional: Yes: Well Nourished, No Distress, Anxious Eyes: Yes: Conjunctiva Clear HENT: Yes: Atraumatic, Normocephalic Neck: Yes: Supple, Trachea Midline Cardiovascular: Yes: Regular Rate and Rhythm Respiratory: Yes: Regular, CTA Bilaterally Gastrointestinal: Yes: Tenderness Access for Hemodialysis: Permacath Musculoskeletal: Yes: WNL Extremities: Yes: WNL Edema: No Neurological: Yes: Alert, Oriented Psychiatric: Yes: Agitated Assessment/Plan IMPRESSION esrd htn diabetes noncompliance asthma hyponatremia wide anion gap PLAN will write orders for hd today needs psych eval especially since she s threatening to take her permcath off [facility]
[2018-07-28] MEDS ORDERED: SODIUM CHLORIDE 250 ML IV PRN (10:53)
[2018-07-28] MEDS ORDERED: LORazepam 2 MG/ML SDV VIAL IM ONE (11:30)
[2018-07-28] MEDS: FLUTICASONE/SALMETEROL 100 MCG/50 MCG DISKUS IH SCH ×2 (11:37→22:31)
[2018-07-28] MEDS ORDERED: PT OWN MED DRAWER 7, Y5N ONE ×2 (11:41→20:05)
--- NOTE | 2018-07-28 12:39 | EKG ---
Test Reason : Blood Pressure : / mmHG Vent. Rate : 079 BPM Atrial Rate : 079 BPM P-R Int : 200 ms QRS Dur : 094 ms QT Int : 426 ms P-R-T Axes : 047 -07 138 degrees QTc Int : 488 ms NORMAL SINUS RHYTHM T WAVE ABNORMALITY, CONSIDER LATERAL ISCHEMIA PROLONGED QT ABNORMAL ECG WHEN COMPARED WITH ECG OF 27-JUL-2018 20:40, NO SIGNIFICANT CHANGE WAS FOUND Confirmed by SANDY MONAE MD ([id number]) on 07/28/2018 12:39:09 PM Referred By: Confirmed By:SANDY MONAE MD
--- NOTE | 2018-07-28 12:40 | EKG ---
Test Reason : Blood Pressure : / mmHG Vent. Rate : 094 BPM Atrial Rate : 094 BPM P-R Int : 192 ms QRS Dur : 094 ms QT Int : 402 ms P-R-T Axes : 048 000 145 degrees QTc Int : 502 ms POOR DATA QUALITY, INTERPRETATION MAY BE ADVERSELY AFFECTED NORMAL SINUS RHYTHM CANNOT RULE OUT ANTERIOR INFARCT , AGE UNDETERMINED T WAVE ABNORMALITY, CONSIDER LATERAL ISCHEMIA ABNORMAL ECG WHEN COMPARED WITH ECG OF 07-OCT-2017 12:50, T WAVE INVERSION MORE EVIDENT IN LATERAL LEADS Confirmed by SANDY MONAE MD ([id number]) on 07/28/2018 12:40:22 PM Referred By: Confirmed By:SANDY MONAE MD
--- NOTE | 2018-07-28 17:07 | CON.PSY ---
Psychiatry Consult Chief Complaint: 58 year old female admitted from Er for acute Cocaine intoxication. Patient became aggressive and thretened to pull her perma cath.Urine positive for Cocaine. Symptoms: reports: Inability to Control Temper, Aggressivity, Impulsivity - Previous Psychiatric Treatment Outpatient: None Inpatient: None - Previous Substance Abuse Treatment Outpatient: None Inpatient: None - Current Medications Current Medications: Active Medications Albuterol Sulfate (Ventolin 0.5% -) 1 amp NEB Q4H PRN PRN Reason: SHORT OF BREATH/WHEEZING Albuterol/Ipratropium (Duoneb -) 1 amp NEB Q6H PRN PRN Reason: SHORTNESS OF BREATH Hydralazine HCl (Apresoline Injection -) 10 mg IVPUSH Q8H PRN PRN Reason: FOR SBP >180 Sodium Chloride (Normal Saline -) 250 mls @ 3,000 mls/hr IV PRN PRN PRN Reason: Hypotension during Dialysis Stop: 07/29/18 10:53 Insulin Aspart (Novolog Vial Sliding Scale -) 1 vial SQ ACHS [facility]; Protocol Last Admin: 07/28/18 11:45 Dose: Not Given Lorazepam (Ativan Injection -) 2 mg IM Q6H PRN PRN Reason: AGITATION Fluticasone/Salmeterol (Advair 100mcg/50mcg -) 1 puff IH BID NANCY Last Admin: 07/28/18 11:37 Dose: 1 puff - Allergies Allergies: Allergies Allergy/AdvReac Type Severity Reaction Status Date / Time No Known Allergies Allergy Verified 07/27/18 18:14 - Current Living Status Usual Living Arrangement: Other - Current Mental Status Evaluation Appearance: Disheveled Attitude: Guarded, Belligerent - Affect Affect: Constrictive Appropriateness: Not Appropriate - Mood Mood: Angry - Speech/Language Expressive: Coherent - Psychomotor Activity Psychomotor Activity: Agitated - Thought Process Thought Process: Intact - Thought Content Hallucinations: Absent Delusions: Absent - Self Perception Self Perception: No Impairment - Cognition Attention: Alert Orientation: Time Memory, Short Term: 1/3 Memory, Remote with Promptin/3 - Concentration Serial Sevens Intact: No Simple Calculations Intact: No - Abstraction Proverb Interpretation: Impaired Judgement: Severely Impaired - Insight Insight: Impaired - Impulse Control Impulse Control: Severly Impaired - Suicidal Ideation Suicidal Ideation: No - Homicidal Ideation Homicidal Ideation: No Assessment/Plan 1) continue with Ativan prn injections. 2) Continue with 1:1. 3) Social sevices evaluation.
[2018-07-28] MEDS ORDERED: INSULIN (NOVOLOG) ASPART 100 UNITS/ML 10ML VIAL ONE (20:03)
[2018-07-29] MEDS: ALBUTEROL SO4 2.5/IPRATROPIUM 0.5 INH SOL 3 ML VIAL.NEB. NEB PRN ×2 (06:05→07:58)
[2018-07-29] MEDS: INSULIN SLIDING SCALE (NOVOLOG) 1 VIAL SQ SCH ×4 (06:56→22:24)
[2018-07-29 08:50] LABS: BASO % 0.8 % (0-2.0); HEMATOCRIT 28.1 % (32.4-45.2); HEMOGLOBIN 9.8 GM/dL (10.7-15.3); LYMPH % 23.9 % (8-40); MCH 28.7 pg (25.7-33.7); MEAN CELL VOLUME 82.2 fl (80-96); MEAN PLT VOLUME 10.4 fl (7.5-11.1); MONO % 13.9 % (3.8-10.2); NEUT % 58.4 % (42.8-82.8); PLATELET COUNT 47 K/MM3 (134-434); RBC 3.42 M/mm3 (3.60-5.2); RDW 15.5 % (11.6-15.6); WHITE BLOOD COUNT 3.2 K/mm3 (4.0-10.0)
[2018-07-29] MEDS: FLUTICASONE/SALMETEROL 100 MCG/50 MCG DISKUS IH SCH ×2 (09:06→22:26)
[2018-07-29 09:12] LABS: ALBUMIN 2.6 g/dl (3.4-5.0); ALK PHOS 209 U/L (45-117); ANION GAP 10 MMOL/L (8-16); BILIRUBIN,TOTAL 0.8 mg/dL (0.2-1); BLOOD UREA NITROGEN 38 mg/dL (7-18); CALCIUM 8.1 mg/dL (8.5-10.1); CHLORIDE 104 mmol/L (98-107); CO2 26 mmol/L (21-32); CREATININE 6.1 mg/dL (0.55-1.3); GLUCOSE,RANDOM 89 mg/dL (74-106); POTASSIUM 3.8 mmol/L (3.5-5.1); SGOT/AST 72 U/L (15-37); SGPT/ALT 37 U/L (13-61); SODIUM 141 mmol/L (136-145)
--- NOTE | 2018-07-29 09:33 | PN ---
Teaching Attending Note Name of Resident: Reyes Potts ATTENDING PHYSICIAN STATEMENT I saw and evaluated the patient. I reviewed the resident's note and discussed the case with the resident. I agree with the resident's findings and plan as documented. SUBJECTIVE:c/o generalized aches and pains. slightly better since HD yesterday but still very distraught over her child. tenisha Cp, SOB, fevr, chills, N/V/C/D OBJECTIVE: Last Vital Signs Temp Pulse Resp BP Pulse Ox 98.3 F 77 20 119/59 L 93 L 07/29/18 05:00 07/29/18 05:00 07/29/18 05:00 07/29/18 05:00 07/28/18 21:00 General NAD, tearful on exam CV S1 S2 RRR no murmur/rub/gallop +R permacath, no signs of infection however not sutured in place Lungs scattered wheezing. no crackles Abdomen diffusely tender no rebound or guarding.+ BS Extremites no pedal edema but tender to touch all over ASSESSMENT AND PLAN: 58 y/o AAF with PMH ESRD on HD (TTS), cirrhosis, GB malignancy s/p resection and chemo, HTN and conitnuous cocaine depedence presenting with missed dialysis and full body pains with concentration on her abdomen and with chest discomfort. 1. Abdominal pain-could be related to UTI however has known enlarged pancrease. awiating MRI to further evaluate. LFT slightly elevated. tolerating diet however has poor appetite. 2. Tropinemia- slight bump in tropoin. refused labs yesterday. awaiting repeat with todays labs. 3. Vague discomfort- could be due to emotional distress vs underlying reason. will check flu swab due to high risk factors and exposure 4. Thrombocytopnia- due to cirrhosis. no signs of bleeding. no indication for treatment at this time 5. Continuous cocaine use-counselled on risks assoc with cocaine use. interested in inpatient rehab when medically optimized 6. ESRD on HD-been on HD for about 7 months through permacath. unclear why she has not had initiated AV graft placement but likely due to non-compliance with follow up. tolerated HD yesterday with 1kg removal. will need to suture permacath in place as she states sutures fell out some time ago. resume HD per normal schedule. 7. HTN- controlled off medications. will need to verify home medications 8. emotional distress- due to social situation. has verbalized threats of wanting to but has no active plan at this time. states she is just too overwhelmed right now. seen by psych and placed on 1:1 observation. ativan prn agitation. pt is alot more cooperative today. 9. GB malignancy- s/p resection and chemo. outpatient follow up 10. DVT ppx- SCD/EAM. would hold pharmacologic anticoagulation in setting of thrombocytopenia
--- NOTE | 2018-07-29 10:19 | PN ---
Progress Note (short form) - Note Progress Note: RENAL tolerated hd well yesterday today she denies complaints. Says she is ok Last Vital Signs Temp Pulse Resp BP Pulse Ox 98.3 F 70 20 126/72 96 07/29/18 09:00 07/29/18 09:00 07/29/18 09:00 07/29/18 09:00 07/29/18 09:00 has permcath lungs clear anteriorly cvs s1s2 r abd soft ext no edema neuro a+ox3 CBC, BMP 07/29/18 08:00 07/29/18 08:00 Current Medications Generic Name Dose Route Start Last Admin Trade Name Freq PRN Reason Stop Dose Admin Albuterol Sulfate 1 amp 07/28/18 01:07 07/28/18 22:35 Ventolin 0.5% - NEB 1 amp Q4H PRN Administration SHORT OF BREATH/WHEEZING Albuterol/Ipratropium 1 amp 07/28/18 01:07 07/29/18 07:58 Duoneb - NEB 1 amp Q6H PRN Administration SHORTNESS OF BREATH Sodium Chloride 250 mls @ 3,000 mls/hr 07/28/18 10:53 Normal Saline - IV 07/29/18 10:53 PRN PRN Hypotension during Dialysis Insulin Aspart 1 vial 07/28/18 07:00 07/29/18 06:56 Novolog Vial Sliding Scale - SQ Not Given ACHS NANCY Protocol Lorazepam 2 mg 07/28/18 11:18 Ativan Injection - IM Q6H PRN AGITATION Fluticasone/Salmeterol 1 puff 07/28/18 10:00 07/29/18 09:06 Advair 100mcg/50mcg - IH 1 puff BID NANCY Administration IMPRESSION esrd pancytopenia noncompliance psych issues h/o GB cancer PLAN would redialyze tomorrow to keep on usual schedule will give epogen needs av access psych follow up MV
[2018-07-29] MEDS ORDERED: SODIUM CHLORIDE 250 ML IV PRN (10:23)
[2018-07-29] MEDS: LORazepam 2 MG/ML SDV VIAL IM PRN (11:21)
[2018-07-29] MEDS ORDERED: CEFTRIAXONE 1,000 MG in DEXTROSE 5%-WATER - 50 ML IVPB ONE (11:42)
--- NOTE | 2018-07-29 11:49 | PN ---
Physical Exam: SUBJECTIVE: Patient seen and examined at bedside. no acute events overnight. patient was tearful this morning about missing her son. she states that she feels her breathing is a little bit better than what it was yesterday and she feels slightly better after dialysis. she is complaining of itchiness around the permacath. she is having a productive cough and is complaining of generalzied abdominal discomfort. she denies any CP/N/V fevers or chills. OBJECTIVE: Vital Signs Period Temp Pulse Resp BP Sys/Jin Pulse Ox Last 24 Hr 98.3 F-98.7 F 70-94 18-22 107-152/57-85 93-96 GENERAL: The patient is awake, alert, tearful EYES: no scleral icterus. NECK: no JVD, no lymphadenopathy, permcath in place- no surrounding erythema or tenderness upon palpation LUNGS:scattered wheezes B/L HEART: Regular rate and rhythm, S1, S2 without murmur, rub or gallop. ABDOMEN: Soft, generalized tenderness upon palpation; non-distended, EXTREMITIES: 2+ pulses, warm, well-perfused, trace edema. PSYCH: tearful SKIN: Warm, dry, normal turgor, no rashes or lesions noted Laboratory Results - last 24 hr 07/28/18 07/28/18 07/29/18 16:59 20:55 06:55 WBC RBC Hgb Hct MCV MCH MCHC RDW Plt Count MPV Absolute Neuts (auto) Neutrophils % Lymphocytes % Monocytes % Eosinophils % Basophils % Nucleated RBC % Sodium Potassium Chloride Carbon Dioxide Anion Gap BUN Creatinine Creat Clearance w eGFR POC Glucometer 93 136 104 Random Glucose Calcium Ferritin Total Bilirubin AST ALT Alkaline Phosphatase Troponin I Total Protein Albumin 07/29/18 07/29/18 07/29/18 08:00 08:00 09:28 WBC 3.2 L RBC 3.42 L Hgb 9.8 L Hct 28.1 L MCV 82.2 MCH 28.7 MCHC 35.0 RDW 15.5 Plt Count 47 L MPV 10.4 Absolute Neuts (auto) 1.8 Neutrophils % 58.4 Lymphocytes % 23.9 D Monocytes % 13.9 H Eosinophils % 3.0 Basophils % 0.8 Nucleated RBC % 0 Sodium 141 Potassium 3.8 Chloride 104 Carbon Dioxide 26 Anion Gap 10 BUN 38 H Creatinine 6.1 H Creat Clearance w eGFR 7.12 POC Glucometer Random Glucose 89 Calcium 8.1 L Ferritin 361.1 Total Bilirubin 0.8 AST 72 H ALT 37 Alkaline Phosphatase 209 H Troponin I 0.14 H Cancelled Total Protein 7.0 Albumin 2.6 L Active Medications Generic Name Dose Route Start Last Admin Trade Name Orlandoq PRN Reason Stop Dose Admin Albuterol Sulfate 1 amp 07/28/18 01:07 07/28/18 22:35 Ventolin 0.5% - NEB 1 amp Q4H PRN Administration SHORT OF BREATH/WHEEZING Albuterol/Ipratropium 1 amp 07/28/18 01:07 07/29/18 07:58 Duoneb - NEB 1 amp Q6H PRN Administration SHORTNESS OF BREATH Sodium Chloride 250 mls @ 3,000 mls/hr 07/29/18 10:23 Normal Saline - IV 07/30/18 10:24 PRN PRN Hypotension during Dialysis Ceftriaxone Sodium 1,000 mg/ 50 mls @ 100 mls/hr 07/29/18 11:42 Dextrose IVPB 07/29/18 12:11 ONCE ONE Insulin Aspart 1 vial 07/28/18 07:00 07/29/18 06:56 Novolog Vial Sliding Scale - SQ Not Given ACHS [facility] Protocol Lorazepam 2 mg 07/28/18 11:18 07/29/18 11:21 Ativan Injection - IM 2 mg Q6H PRN Administration AGITATION Fluticasone/Salmeterol 1 puff 07/28/18 10:00 07/29/18 09:06 Advair 100mcg/50mcg - IH 1 puff BID NANCY Administration ASSESSMENT/PLAN: 58 y/o female with PMH asthma, gallbladder ca, ESRD (dialysis t,th,s), HTN, cirrhosis, cocaine dependence presents to the ED with complaints of shortness of breath, wheezing, chest discomfort and generalized abdominal pain in addition to having missed her dialysis appointment # ESRD patient tolerated dialysis well yesterday -plan for possible dialysis tomorrow -nephro on board -monitor electrolytes and fluid status #Abdominal Pain patient found to have elevated LFTS on admission in addition to enlarged pancrease - MRCP pending to further evaluate -patient also found to have UTI -started ceftriaxone 1gram daily #Troponinemia -patients most recent troponin in 0.14 -likey due to ESRD/demand ischemia -monitor #HTN -will confirm with pharmacy patients home medications #Dyspnea -c/w advair, duonebs and albuterol #Thrombocytopenia likely due to her cirrhosis -monitor for active signs of bleeding F/E/N not on fluids monitor electrolytes sodium controlled diet DVT PPX: SCDS Problem List - Problems (1) Anxiety Code(s): F41.9 - ANXIETY DISORDER, UNSPECIFIED (2) Asthma Code(s): J45.909 - UNSPECIFIED ASTHMA, UNCOMPLICATED (3) Chronic renal insufficiency Code(s): N18.9 - CHRONIC KIDNEY DISEASE, UNSPECIFIED (4) Missed dialysis Code(s): MJC1563 - (5) Asthma exacerbation Code(s): J45.901 - UNSPECIFIED ASTHMA WITH (ACUTE) EXACERBATION Qualifiers: Asthma severity: moderate Asthma persistence: persistent Qualified Code(s ): J45.41 - Moderate persistent asthma with (acute) exacerbation Visit type - Emergency Visit Emergency Visit: Yes ED Registration Date: 07/27/18 Care time: The patient presented to the Emergency Department on the above date and was hospitalized for further evaluation of their emergent condition. - New Patient This patient is new to me today: Yes Date on this admission: 07/29/18 - Critical Care Critical Care patient: No
--- NOTE | 2018-07-29 18:46 | PN ---
Progress Note (short form) - Note Progress Note: Psych follow up: Patient seen for Psych follow up. Had an uneventful day except for brief period of agitation and was given and responded well. Ms; Alert, oriented and able to engage in conveersation. She denies feeling suicidal or have any plans to pull her IV out. She is not under any psych treatment tushar. She denies any psych Illness. Cognition intact. REc: D/C 1:1. 2) continue with Ativan on a prn basis.
[2018-07-29] MEDS ORDERED: PT OWN MED DRAWER 7, Y5N ONE (20:19)
[2018-07-29] MEDS ORDERED: INSULIN (NOVOLOG) ASPART 100 UNITS/ML 10ML VIAL ONE (20:19)
[2018-07-29] MEDS: CEPHALEXIN MONOHYDRATE 500 MG CAPSULE (UD) PO SCH (22:27)
[2018-07-30 06:06] LABS: SERUM IRON SATURATION 47 % (15-55); TOTAL IRON BINDING CAPACITY 190 ug/dL (250-450); UIBC 100 ug/dL (131-425)
[2018-07-30] MEDS: INSULIN SLIDING SCALE (NOVOLOG) 1 VIAL SQ SCH ×4 (06:52→21:43)
[2018-07-30 07:14] LABS: HEMATOCRIT 26.7 % (32.4-45.2); HEMOGLOBIN 9.3 GM/dL (10.7-15.3); MCHC 34.7 g/dl (32.0-36.0); MEAN CELL VOLUME 83.8 fl (80-96); MEAN PLT VOLUME 10.1 fl (7.5-11.1); PLATELET COUNT 48 K/MM3 (134-434); RBC 3.19 M/mm3 (3.60-5.2); RDW 15.9 % (11.6-15.6)
[2018-07-30 07:22] LABS: ANION GAP 10 MMOL/L (8-16); BLOOD UREA NITROGEN 51 mg/dL (7-18); CALCIUM 8.3 mg/dL (8.5-10.1); CHLORIDE 105 mmol/L (98-107); CO2 25 mmol/L (21-32); CREATININE 7.1 mg/dL (0.55-1.3); GLUCOSE,RANDOM 90 mg/dL (74-106); POTASSIUM 4.3 mmol/L (3.5-5.1); SODIUM 140 mmol/L (136-145)
[2018-07-30 08:25] LABS: ALBUMIN 2.5 g/dl (3.4-5.0); ALK PHOS 196 U/L (45-117); BILIRUBIN,DIRECT 0.3 mg/dL (0.0-0.2); BILIRUBIN,TOTAL 0.7 mg/dL (0.2-1); GAMMA GLUTAMYL TRANSPEPTIDASE 332 U/L (5-85); SGOT/AST 61 U/L (15-37); SGPT/ALT 34 U/L (13-61); TOT PROT 6.7 g/dl (6.4-8.2)
[2018-07-30] MEDS ORDERED: LORazepam 1 MG TABLET PO ONE (09:28)
--- NOTE | 2018-07-30 10:44 | ECHO ---
Name: AISHA RENEE Exam:Adult Echocardiogram Study Date: 07/30/2018 08:45 AM Age: 58 yrs Height: 64 in Weight: 210 lb BSA: 2.0 m2 MMode/2D Measurements & Calculations IVSd: 0.92 cm LA dimension: 4.8 cm LVIDd: 6.2 cm LVIDs: 4.0 cm LVPWd: 0.82 cm EDV(Teich): 192.3 ml ESV(Teich): 71.1 ml Doppler Measurements & Calculations MV E max harshil: 74.7 cm/sec MR max harshil: 314.1 cm/sec MV A max harshil: 85.4 cm/sec MR max P.5 mmHg MV E/A: 0.88 MV dec time: 0.24 sec Med Peak E' Harshil: 4.8 cm/sec Med E/e': 15.5 Lat Peak E' Harshil: 6.8 cm/sec Lat E/e': 10.9 Procedure A complete two-dimensional transthoracic echocardiogram was performed (2D, M-mode, Doppler and color flow Doppler). Technically limited study. Left Ventricle The left ventricle is mildly dilated. Left ventricular systolic function is borderline reduced. Eject ion Fraction = 50-55%. TDI reveals mildly impaired relaxation with elevated filling pressure (E/E' 16). T here is borderline global hypokinesis of the left ventricle. Right Ventricle The right ventricle is normal size. The right ventricular systolic function is normal. Atria The left atrium is moderately dilated. Right atrial size is normal. Mitral Valve There is mild mitral annular calcification. There is mild mitral regurgitation. Tricuspid Valve The tricuspid valve is normal in structure and function. There is mild tricuspid regurgitation. Aortic Valve The aortic valve is normal in structure and function. No aortic regurgitation is present. Pulmonic Valve The pulmonic valve is not well visualized. Great Vessels The aortic root is normal size. Pericardium/Pleura Trivial pericardial effusion not hemodynamically significant. Interpretation Summary Technically limited study The left ventricle is mildly dilated. Left ventricular systolic function is borderline reduced. There is borderline global hypokinesis of the left ventricle. Ejection Fraction = 50-55%. TDI reveals mildly impaired relaxation with elevated filling pressure (E/E' 16) The right ventricular systolic function is normal. The left atrium is moderately dilated. Right atrial size is normal. There is mild mitral annular calcification. There is mild mitral regurgitation. There is mild tricuspid regurgitation. Trivial pericardial effusion not hemodynamically significant Previous study is not available for comparison Miguel Singh MD 07/30/2018 10:44 AM
--- NOTE | 2018-07-30 12:04 | CON.GI ---
Consult Consult Specialty:: GI Referred by:: Hospitalist Service Reason for Consultation:: Abdominal pain and history of gallbladder cancer - History of Present Illness Chief Complaint: "I missed dialysis and was sick" History of Present Illness: 58F admitted through [facility] ER as she missed dialysis. When I asked her what was wrong leaduing to her admission, she states that "She missed dialysis (2 sessions) and felt sick. She stated that she doesn't care that she missed her sessions and is "tired of being tired". When I asked her, she stated that she was depressed. I was asked to evaluate abdominal pain and her history of gallbladder cancer. 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 The chart states that she received chemoitherapy. Ms. Houser is a poor historian and does not recall follow-up regarding this or who her PMD is for that matter (states that she may go to the Clinic). She denies focal bowel symptomatology. When I asked about her abdominal pain, she states that there is a "lump in her abdomen". She does not recall having had a colonscopy in the past. Her maternal grandfather may have had colon cancer. She denies rectal bleeding, melena, dysphagia, odynophagia, vomiting, early satiety. She has not had a contrast study of the abdomen, at least in the [facility], since 2014. At that time she underwent CT scan and MRI. MRI revealed a fat filled umbilical hernia and increasing splenomegaly. That was performed for a rising CA 19-9 level. The chart gives a history of cirrhosis however the patient denies known liver disease. CT scan in 2015 revealed mildly enlarged and nodular liver, however. 10/12 she was hepatitis C ab negative, hepatitis A antibody positive and hepatitis B surface and core antibody positive. She has had mild transaminitis and ALP evelation for multiple years per the [facility] system. She explains that recently she took her friends codeine pills and it made her sick. - History Source History Provided By: Patient Limitations to Obtaining History: Poor Historian - Past Medical History Cardio/Vascular: Yes: HTN. No: AFIB Pulmonary: Yes: Asthma Gastrointestinal: Yes: Cancer (gall bladder s/p surgery and chemo) Hepatobiliary: Yes: Cirrhosis Renal/: Yes: Renal Failure ...LMP: 11/11/13 Musculoskeletal: Yes: Other (left leg pain) Endocrine: Yes: Diabetes Mellitus - Past Surgical History Past Surgical History: Yes: Cholecystectomy, (x2) Additional Surgical History: permacath placement - Alcohol/Substance Use Hx Alcohol Use: No History of Substance Use: reports: None - Smoking History Smoking history: Never smoked Have you smoked in the past 12 months: No Aproximately how many cigarettes per day: 0 - Social History Usual Living Arrangement: Other ADL: Independent Occupation: Unemployed Place of : [facility] History of Recent Travel: No Home Medications - Allergies Allergies/Adverse Reactions: Allergies Allergy/AdvReac Type Severity Reaction Status Date / Time No Known Allergies Allergy Verified 07/27/18 18:14 - Home Medications Home Medications: Ambulatory Orders Albuterol Sulfate Inhaler - [Ventolin HFA Inhaler -] 2 inh PO Q6H PRN 10/07/17 Amlodipine Besylate [Norvasc -] 10 mg PO DAILY 10/07/17 Albuterol 0.083% Nebulizer Chica [Ventolin 0.083% Nebulizer Soln -] 1 amp NEB Q4H PRN #1 amp 10/09/17 Insulin (Levemir) [Levemir Vial] 30 units SQ AM #1 vial 10/09/17 Salmeterol/Fluticasone [Advair 500Mcg/50Mcg -] 1 inh IH BID #1 inh 10/09/17 Family Disease History - Family Disease History Family Disease History: Diabetes: Mother (: cancer, age 67 (? lymphnode in neck)), CA: Father (, 69 "bone cancer"), Mother, Other: Grandparent ( Maternal GF: possible colon cancer), Father, Mother, Brother (5, does not know their med history), Sister (1, does not know her med history), Son (1, healthy) , Daughter (1, healthy) Review of Systems - Review of Systems Constitutional: reports: Chills Cardiovascular: denies: Chest Pain Respiratory: reports: Cough Gastrointestinal: reports: Abdominal Pain. denies: Constipation, Diarrhea, Dysphagia, Indigestion, Melena, Rectal Bleeding, Vomiting, Vomiting Blood Psychiatric: reports: Depression Physical Exam-GI Vital Signs: Vital Signs Temperature 98.0 F 07/30/18 05:00 Pulse Rate 74 07/30/18 09:55 Respiratory Rate 18 07/30/18 09:55 Blood Pressure 137/79 07/30/18 09:55 O2 Sat by Pulse Oximetry (%) 94 L 07/29/18 21:00 Constitutional: Yes: Calm Eyes: No: Sclera Icterus Cardiovascular: Yes: Regular Rate and Rhythm Respiratory: Yes: CTA Bilaterally Gastrointestinal Inspection: Yes: Hernia (reducible ventral hernia just cephalad of umbilicus, noted when I asked the patient to flex her head to her chest), Scars (pelvic surgical scar). No: Distention ...Auscultate: Yes: Normoactive Bowel Sounds ...Palpate: Yes: Hepatomegaly, Tenderness ...Percussion: No: Tympanitic Edema: No (No LE edema) Neurological: Yes: Alert Labs: CBC, BMP 07/30/18 06:15 07/30/18 06:15 INR, PTT INR 1.02 (0.83-1.09) 07/27/18 19:52 Problem List - Problems (1) Abdominal pain Assessment/Plan: Mild Tendeness at site of a small reducible ventral hernia just cephalad to the umbilicus. Consider obtaining surgical opinion regarding this hernia Code(s): R10.9 - UNSPECIFIED ABDOMINAL PAIN (2) Gallbladder cancer Assessment/Plan: History of: ? if she received chemo per the chart but Ms. Houser is a poor historian regarding this. She states that she follows up primarily at the [facility] clinic. Would attempt to obtain more medical information regarding her outpatient care. Consider oncology evaluation Code(s): C23 - MALIGNANT NEOPLASM OF GALLBLADDER (3) Cirrhosis of liver Assessment/Plan: Patient denies history of liver disease however prior CT scan in 2015 revealing a nodular contour of the liver Will need formal imaging of the liver along with AFP tumor marker. Should ideally have a triple phase study of the abdomen with and without contrast (ie. CT scan of the abdomen / MRI of the abdomen). Triple phase should be stressed in the comment section of the order. Consider hematology evaluation to exclude any alternate causes of thrombocytopenia Hepatitis serologies from earlier this year suggest hepatitis B immunity through exposure and HCV Ab was negative. Can repeat serologies. Q 6 month Hepatic US /AFP to screen for HCC Code(s): K74.60 - UNSPECIFIED CIRRHOSIS OF LIVER (4) Screening for colorectal cancer Assessment/Plan: When acute issues are resolved, can follow-up as outpatient to discuss colonoscopy as well as upper endoscopy to screen for varices. Code(s): Z12.11 - ENCOUNTER FOR SCREENING FOR MALIGNANT NEOPLASM OF COLON; Z12.12 - ENCOUNTER FOR SCREENING FOR MALIGNANT NEOPLASM OF RECTUM (5) Depression Assessment/Plan: Ms. Houser states that she is depressed and that this impacts her wishes to stay compliant with her dialysis. Consider psych eval. She also alludes to using a friends codeine prescription. ? if there is concern for opiate prescription opiate abuse Code(s): F32.9 - MAJOR DEPRESSIVE DISORDER, SINGLE EPISODE, UNSPECIFIED
--- NOTE | 2018-07-30 12:44 | PN ---
Progress Note, Physician History of Present Illness: Pt seen and examined at bedside. She denies shortness of breath. She is confused. - Current Medication List Current Medications: Active Medications Albuterol Sulfate (Ventolin 0.5% -) 1 amp NEB Q4H PRN PRN Reason: SHORT OF BREATH/WHEEZING Last Admin: 07/28/18 22:35 Dose: 1 amp Albuterol/Ipratropium (Duoneb -) 1 amp NEB Q6H PRN PRN Reason: SHORTNESS OF BREATH Last Admin: 07/29/18 07:58 Dose: 1 amp Amlodipine Besylate (Norvasc -) 10 mg PO DAILY NANCY Aspirin (Asa -) 81 mg PO DAILY NANCY Furosemide (Lasix -) 40 mg PO DAILY NANCY Insulin Aspart (Novolog Vial Sliding Scale -) 1 vial SQ ACHS NANCY; Protocol Last Admin: 07/30/18 06:52 Dose: Not Given Lorazepam (Ativan Injection -) 2 mg IM Q6H PRN PRN Reason: AGITATION Last Admin: 07/29/18 11:21 Dose: 2 mg Fluticasone/Salmeterol (Advair 100mcg/50mcg -) 1 puff IH BID NANCY Last Admin: 07/29/18 22:26 Dose: 1 puff - Objective Vital Signs: Vital Signs Temperature 98.2 F 07/30/18 09:55 Pulse Rate 77 07/30/18 12:00 Respiratory Rate 18 07/30/18 12:00 Blood Pressure 130/84 07/30/18 12:00 O2 Sat by Pulse Oximetry (%) 94 L 07/29/18 21:00 Constitutional: Yes: Calm Eyes: Yes: Conjunctiva Clear HENT: Yes: Atraumatic Neck: Yes: Supple Cardiovascular: Yes: S1, S2 Respiratory: Yes: CTA Bilaterally Gastrointestinal: Yes: Soft Genitourinary: Yes: WNL Musculoskeletal: Yes: WNL Edema: No Neurological: Yes: Confusion Labs: CBC, BMP 07/30/18 06:15 07/30/18 06:15 INR, PTT INR 1.02 (0.83-1.09) 07/27/18 19:52 Problem List - Problems (1) ESRD (end stage renal disease) Code(s): N18.6 - END STAGE RENAL DISEASE (2) Missed dialysis Code(s): ILC7160 - (3) Volume overload Code(s): E87.70 - FLUID OVERLOAD, UNSPECIFIED Assessment/Plan Current Medications Generic Name Dose Route Start Last Admin Trade Name Freq PRN Reason Stop Dose Admin Albuterol Sulfate 1 amp 07/28/18 01:07 07/28/18 22:35 Ventolin 0.5% - NEB 1 amp Q4H PRN Administration SHORT OF BREATH/WHEEZING Albuterol/Ipratropium 1 amp 07/28/18 01:07 07/29/18 07:58 Duoneb - NEB 1 amp Q6H PRN Administration SHORTNESS OF BREATH Amlodipine Besylate 10 mg 07/30/18 10:00 Norvasc - PO DAILY NANCY Aspirin 81 mg 07/30/18 10:00 Asa - PO DAILY NANCY Furosemide 40 mg 07/30/18 10:00 Lasix - PO DAILY NANCY Insulin Aspart 1 vial 07/28/18 07:00 07/30/18 06:52 Novolog Vial Sliding Scale - SQ Not Given ACHS NANCY Protocol Lorazepam 2 mg 07/28/18 11:18 07/29/18 11:21 Ativan Injection - IM 2 mg Q6H PRN Administration AGITATION Fluticasone/Salmeterol 1 puff 07/28/18 10:00 07/29/18 22:26 Advair 100mcg/50mcg - IH 1 puff BID NANCY Administration Selected Entries 07/30/18 12:00 Blood Pressure 130/84 Impression 1. ESRD 2. confusion 3. non compliance 4. pancytopenia 5. HTN 6. anemia Plan - HD today - pt appears confused - monitor Hg - monitor bp - will follow Dr Waite
[2018-07-30] MEDS: CEPHALEXIN MONOHYDRATE 500 MG CAPSULE (UD) PO SCH (14:32)
[2018-07-30] MEDS: LORazepam 2 MG/ML SDV VIAL IM PRN (14:34)
[2018-07-30] MEDS: ASPIRIN 81 MG CHEWABLE TABLETS PO SCH (14:39)
[2018-07-30] MEDS: amLODIPine BESYLATE 10 MG TABLET (FP) PO SCH (14:39)
--- NOTE | 2018-07-30 14:55 | PN ---
Physical Exam: SUBJECTIVE: Patient seen and examined at bedside- she was very tearful this morning, she states that she is in a lot of pain and that she wants the pain to be taken away from her. she said that she wants to get help and would be willing to go to a facility. OBJECTIVE: Vital Signs Period Temp Pulse Resp BP Sys/Jin Pulse Ox Last 24 Hr 98.0 F-98.7 F 68-81 18-18 101-147/52-84 94 GENERAL: The patient is awake, alert, tearful EYES: no scleral icterus NECK: no JVD, no lymmphadenopathy LUNGS: wheezing appreciated B/L. HEART: Regular rate and rhythm, S1, S2 without murmur, rub or gallop. ABDOMEN: Soft, tender upon palpation EXTREMITIES: 2+ pulses, warm, well-perfused, trace edema. PSYCH: tearful, depressed SKIN: Warm, dry, normal turgor, no rashes or lesions noted Laboratory Results - last 24 hr 07/28/18 07/29/18 07/29/18 13:30 09:00 16:33 WBC RBC Hgb Hct MCV MCH MCHC RDW Plt Count MPV Sodium Potassium Chloride Carbon Dioxide Anion Gap BUN Creatinine Creat Clearance w eGFR POC Glucometer 114 Random Glucose Calcium Iron 90 TIBC 190 L Iron Saturation 47 Total Bilirubin Direct Bilirubin GGT AST ALT Alkaline Phosphatase Total Protein Albumin Hep C Ab Diagnostic <0.1 07/29/18 07/30/18 07/30/18 22:23 06:15 06:15 WBC 3.0 L RBC 3.19 L Hgb 9.3 L Hct 26.7 L MCV 83.8 MCH 29.0 MCHC 34.7 RDW 15.9 H Plt Count 48 L MPV 10.1 Sodium 140 Potassium 4.3 Chloride 105 Carbon Dioxide 25 Anion Gap 10 BUN 51 H Creatinine 7.1 H Creat Clearance w eGFR 5.97 POC Glucometer 126 Random Glucose 90 Calcium 8.3 L Iron TIBC Iron Saturation Total Bilirubin 0.7 Direct Bilirubin 0.3 H GGT 332 H AST 61 H ALT 34 Alkaline Phosphatase 196 H Total Protein 6.7 Albumin 2.5 L Hep C Ab Diagnostic 07/30/18 07/30/18 06:50 07:49 WBC RBC Hgb Hct MCV MCH MCHC RDW Plt Count MPV Sodium Potassium Chloride Carbon Dioxide Anion Gap BUN Creatinine Creat Clearance w eGFR POC Glucometer 98 Random Glucose Calcium Iron TIBC Iron Saturation Total Bilirubin Cancelled Direct Bilirubin Cancelled GGT Cancelled AST Cancelled ALT Cancelled Alkaline Phosphatase Cancelled Total Protein Cancelled Albumin Cancelled Hep C Ab Diagnostic Active Medications Generic Name Dose Route Start Last Admin Trade Name Freq PRN Reason Stop Dose Admin Albuterol Sulfate 1 amp 07/28/18 01:07 07/28/18 22:35 Ventolin 0.5% - NEB 1 amp Q4H PRN Administration SHORT OF BREATH/WHEEZING Albuterol/Ipratropium 1 amp 07/28/18 01:07 07/29/18 07:58 Duoneb - NEB 1 amp Q6H PRN Administration SHORTNESS OF BREATH Amlodipine Besylate 10 mg 07/30/18 10:00 07/30/18 14:39 Norvasc - PO 10 mg DAILY NANCY Administration Aspirin 81 mg 07/30/18 10:00 07/30/18 14:39 Asa - PO 81 mg DAILY NANCY Administration Furosemide 40 mg 07/30/18 10:00 Lasix - PO DAILY NANCY Insulin Aspart 1 vial 07/28/18 07:00 07/30/18 06:52 Novolog Vial Sliding Scale - SQ Not Given ACHS NANCY Protocol Lorazepam 2 mg 07/28/18 11:18 07/30/18 14:34 Ativan Injection - IM 2 mg Q6H PRN Administration AGITATION Fluticasone/Salmeterol 1 puff 07/28/18 10:00 07/29/18 22:26 Advair 100mcg/50mcg - IH 1 puff BID NANCY Administration ASSESSMENT/PLAN: 58 y/o female with PMH asthma, gallbladder ca, ESRD (dialysis t,,s), HTN, cirrhosis, cocaine dependence presents to the ED with complaints of shortness of breath, wheezing, chest discomfort and generalized abdominal pain in addition to having missed her dialysis appointment #Depression -patient tearful again this am saying she wants to take the pain away -no active plan for SI -spoke with Dr. Sloan, patient might benefit form voluntarily going to inaptient psych -social workers involved # ESRD patient tolerated dialysis well yesterday -plan for possible dialysis tomorrow -nephro on board -monitor electrolytes and fluid status #Abdominal Pain patient found to have elevated LFTS on admission in addition to enlarged pancreas -GI consulted; recommended CT scan of abdomen W/WO contrast to evaluate liver - MRCP pending to further evaluate -patient also found to have UTI growing ESBL; ID consulted no treatment -oncology consul placed given patients history of gallbladder ca and possible enlarged pancreas #Troponinemia -patients most recent troponin in 0.14 -likey due to ESRD/demand ischemia -monitor #HTN -will confirm with pharmacy patients home medications #Dyspnea -c/w advair, duonebs and albuterol #Thrombocytopenia likely due to her cirrhosis -monitor for active signs of bleeding F/E/N not on fluids monitor electrolytes renal diet DVT PPX SCDS Problem List - Problems (1) Anxiety Code(s): F41.9 - ANXIETY DISORDER, UNSPECIFIED (2) Asthma Code(s): J45.909 - UNSPECIFIED ASTHMA, UNCOMPLICATED (3) Chronic renal insufficiency Code(s): N18.9 - CHRONIC KIDNEY DISEASE, UNSPECIFIED (4) Missed dialysis Code(s): YZV6585 - (5) Asthma exacerbation Code(s): J45.901 - UNSPECIFIED ASTHMA WITH (ACUTE) EXACERBATION Qualifiers: Asthma severity: moderate Asthma persistence: persistent Qualified Code(s ): J45.41 - Moderate persistent asthma with (acute) exacerbation Visit type - Emergency Visit Emergency Visit: Yes ED Registration Date: 07/27/18 Care time: The patient presented to the Emergency Department on the above date and was hospitalized for further evaluation of their emergent condition. - New Patient This patient is new to me today: No - Critical Care Critical Care patient: No
--- NOTE | 2018-07-30 15:09 | PN ---
Teaching Attending Note Name of Resident: Wanda Underwood ATTENDING PHYSICIAN STATEMENT I saw and evaluated the patient. I reviewed the resident's note and discussed the case with the resident. I agree with the resident's findings and plan as documented. SUBJECTIVE:continues to have abdominal pain but much improved. tolerating diet. denies Cp, SOB, fever, chills, N/V/c/D as per RN pt was threatening to want to becuase she is unable to live with herself. OBJECTIVE: Last Vital Signs Temp Pulse Resp BP Pulse Ox 98.2 F 80 18 141/73 94 L 07/30/18 09:55 07/30/18 13:28 07/30/18 13:28 07/30/18 13:28 07/29/18 21:00 General NAD, tearful on exam Abdomen diffusely tender no rebound or guarding.+ BS ASSESSMENT AND PLAN: 58 y/o AAF with PMH ESRD on HD (TTS), cirrhosis, GB malignancy s/p resection and chemo, HTN and conitnuous cocaine depedence presenting with missed dialysis and full body pains with concentration on her abdomen and with chest discomfort. 1. Abdominal pain-non specific and diffuse. known to have enlarged pancreas. LFT slightly elevated. with high GGT. awaiting MRI. tolerating diet. will consider GI eval 2. +UCx-showing Ecoli ESBL however <100,000 colonies. Consult if needs to be treated 3. Tropinemia- flat trend, in setting of ESRD with no CP. no signs of acs. 4. Vague discomfort- could be due to emotional distress vs underlying reason. Flu swab negative 5. Thrombocytopnia- due to cirrhosis. no signs of bleeding. no indication for treatment at this time 6. Continuous cocaine use-counselled on risks assoc with cocaine use. interested in inpatient rehab when medically optimized 7. ESRD on HD-currently getting HD. tolerating well. attempted to suture permacath yeseterday but patient refused. expressed concern of loosing access and needing th catheter to be replaced. pt states maybe later. nephro on board 8. HTN- controlled. cont home medications. 9. DM- on levemir at home. has been on hold nad not requiring coverage at this time. will check A1c. BGM 10. Emotional distress- with questionable suicidal thoughts. when attempted to ask patient about convo with RN today she started crying and stated she wants to be left alone. was seen by psych and 1:1 was stopped yesterday. will request them to come back and evaluate. 11. GB malignancy- s/p resection and chemo. outpatient follow up 12. DVT ppx- SCD/EAM. would hold pharmacologic anticoagulation in setting of thrombocytopenia
--- NOTE | 2018-07-30 16:19 | PN ---
Progress Note (short form) - Note Progress Note: ID Consult dictated + Urine c/s likely contamination/ colonization ESRD pancytopenia No treatment for + urine c/s Contact precautions ESBL HIV testing if status not documented.
--- NOTE | 2018-07-30 16:48 | CONS ---
DATE OF CONSULTATION: DATE OF DICTATION: 07/30/2018 INFECTIOUS DISEASE CONSULTATION HISTORY OF PRESENT ILLNESS: The patient is a 58-year-old female with a history of end-stage renal disease on hemodialysis evaluated for positive urine culture. She was admitted to the hospital after complaining of worsening shortness of breath and lower extremity edema. She had apparently missed her regularly scheduled hemodialysis session. Patient apparently suffers from depression. She was admitted to the hospital, where she received hemodialysis and reports improvement in her dyspnea and lower extremity edema. She was found to have a positive urine culture for ESBL and carinii bacterium. The patient is a dialysis patient. However, she does report making small amount of urine. No reported dysuria, frequency, urgency, or hematuria. She denies any fever or chills. PAST MEDICAL HISTORY: Positive for end-stage renal disease on hemodialysis, congestive heart failure, asthma. PAST SURGICAL HISTORY: Status post cholecystectomy. There is a question of gallbladder cancer in the past, treated in 2013. ALLERGIES: No known allergies. LABORATORY DATA: White count 3.0, absolute neutrophil count 1.8, hematocrit 26.7, platelet count 48, creatinine 7.1. Urinalysis 42 white cells. Urine culture 70 to 80 thousand colonies of ESBL and 60 to 70 thousand colonies of carinii bacterium. PHYSICAL EXAMINATION: General: On exam, she is awake, in no acute distress. Vital signs: Temperature 98.2, blood pressure 141/73, pulse 80 regular, respirations 18 per minute. HEENT: Sclerae anicteric. Cardiovascular: Heart sounds S1, S2. Lungs: Grossly clear. Abdomen: Soft. Extremities: Negative for edema. IMPRESSION: 1. Positive urine culture consistent with contamination versus colonization. 2. End-stage renal disease on hemodialysis. 3. Pancytopenia. Growth of 2 organisms, low colony count, and urine culture suggestive of contamination or colonization. Would not treat. Will need contact precautions for ESBL. Would obtain HIV serology if her status is not documented in light of per pancytopenia and renal failure. Thank you for the kind referral. SANDY HESTER M.D. [id number]
[2018-07-30] MEDS: FUROSEMIDE 40 MG TABLET (FP) PO SCH (16:49)
[2018-07-30] MEDS: FLUTICASONE/SALMETEROL 100 MCG/50 MCG DISKUS IH SCH ×2 (17:24→21:43)
[2018-07-30] MEDS ORDERED: ACETAMINOPHEN 325 MG TABLET (FP) PO ONE (18:50)
--- NOTE | 2018-07-30 19:00 | PN ---
Progress Note (short form) - Note Progress Note: Patient seen for Psych follow up. She apparantly told MEdical MD pineda she was feeling more depressed and wanted to go yo a psych unit. She denies any suicidal ideas or plans at this time. MS: alert, more awake, c/o of abdominal pain. wants to get better but is vague about her needs. Cognition intact. Plan> start Cymbalta 20mg po od. for depression.
[2018-07-30] MEDS ORDERED: INSULIN (NOVOLOG) ASPART 100 UNITS/ML 10ML VIAL ONE (21:03)
--- NOTE | 2018-07-30 22:38 | CONSULT ---
Consult - text type - Consultation Consultation Note: 58F admitted through [facility] ER as she missed dialysis. Also with vague, diffuse abdominal pain. We have been consulted regarding pancytopenia and h/o gall bladder cancer -- p T2, Nx - History Source History Provided By: Patient Limitations to Obtaining History: Poor Historian - Past Medical History Cardio/Vascular: Yes: HTN. No: AFIB Pulmonary: Yes: Asthma Gastrointestinal: Yes: Cancer (gall bladder s/p surgery and chemo) Hepatobiliary: Yes: Cirrhosis Renal/: Yes: Renal Failure Musculoskeletal: Yes: Other (left leg pain) Endocrine: Yes: Diabetes Mellitus - Past Surgical History Past Surgical History: Yes: Cholecystectomy, (x2) - Smoking History Smoking history: Never smoked - Allergies Allergies/Adverse Reactions: Allergies Allergy/AdvReac Type Severity Reaction Status Date / Time No Known Allergies Allergy Verified 07/27/18 18:14 - Home Medications Home Medications: Ambulatory Orders Albuterol Sulfate Inhaler - [Ventolin HFA Inhaler -] 2 inh PO Q6H PRN 10/07/17 Amlodipine Besylate [Norvasc -] 10 mg PO DAILY 10/07/17 Albuterol 0.083% Nebulizer Chica [Ventolin 0.083% Nebulizer Soln -] 1 amp NEB Q4H PRN #1 amp 10/09/17 Insulin (Levemir) [Levemir Vial] 30 units SQ AM #1 vial 10/09/17 Salmeterol/Fluticasone [Advair 500Mcg/50Mcg -] 1 inh IH BID #1 inh 10/09/17 Family Disease History - Family Disease History Family Disease History: Diabetes: Mother (: cancer, age 67 (? lymphnode in neck)), CA: Father (, 69 "bone cancer"), Mother, Other: Grandparent ( Maternal GF: possible colon cancer), Father, Mother, Brother (5, does not know their med history), Sister (1, does not know her med history), Son (1, healthy) , Daughter (1, healthy) Vital Signs: Last Vital Signs Temp Pulse Resp BP Pulse Ox 98.4 F 79 18 129/61 94 L 07/31/18 06:00 07/31/18 06:00 07/31/18 06:00 07/31/18 06:00 07/30/18 21:00 Constitutional: Yes: Calm Eyes: No: Sclera Icterus Cardiovascular: Yes: Regular Rate and Rhythm Respiratory: Yes: CTA Bilaterally Gastrointestinal Inspection: Yes: Hernia (reducible ventral hernia just cephalad of umbilicus, noted when I asked the patient to flex her head to her chest), Scars (pelvic surgical scar). No: Distention ...Auscultate: Yes: Normoactive Bowel Sounds ...Palpate: Yes: Hepatomegaly, Tenderness Neurological: Yes: Alert Labs: CBC, BMP 07/30/18 06:15 07/30/18 06:15 INR, PTT INR 1.02 (0.83-1.09) 07/27/18 19:52 A/P 58 y/o patient with h/o ESRD on dialysis , cirrhosis based on imaging in 2014, gall bladder cancer 2011, T2, NX , mod. differentiates, s/p resection, - margins , no LVI Patient adnmtted having missed dialysis sessions and disffuse abdominal pain also with depression'' Pancytopenia-- due to cirrhosis/splenomegaly monitor No overt bleeding Coags are normal h/o gall bladder cancer -- 2012,s/p resection, T2, Nx, mod. diff.- mrgins, no LVI/PNI Patient unsure of oncology f/u awaiting CT / MRI -- to be coordinated between primary/dialysis teams will follow
[2018-07-31] MEDS: FLUTICASONE/SALMETEROL 100 MCG/50 MCG DISKUS IH SCH ×3 (01:09→22:47)
[2018-07-31] MEDS: INSULIN SLIDING SCALE (NOVOLOG) 1 VIAL SQ SCH ×4 (06:18→22:37)
[2018-07-31 07:21] LABS: HEMATOCRIT 28.4 % (32.4-45.2); HEMOGLOBIN 9.2 GM/dL (10.7-15.3); MCH 27.3 pg (25.7-33.7); MCHC 32.4 g/dl (32.0-36.0); MEAN CELL VOLUME 84.2 fl (80-96); MEAN PLT VOLUME 9.8 fl (7.5-11.1); PLATELET COUNT 50 K/MM3 (134-434); RBC 3.38 M/mm3 (3.60-5.2); RDW 15.9 % (11.6-15.6); WHITE BLOOD COUNT 3.3 K/mm3 (4.0-10.0)
[2018-07-31 07:29] LABS: ANION GAP 9 MMOL/L (8-16); BLOOD UREA NITROGEN 32 mg/dL (7-18); CALCIUM 8.7 mg/dL (8.5-10.1); CHLORIDE 103 mmol/L (98-107); CO2 28 mmol/L (21-32); CREATININE 4.7 mg/dL (0.55-1.3); GLUCOSE,RANDOM 82 mg/dL (74-106); MAGNESIUM 1.9 mg/dL (1.8-2.4); SODIUM 140 mmol/L (136-145)
[2018-07-31] MEDS: FUROSEMIDE 40 MG TABLET (FP) PO SCH (10:01)
[2018-07-31] MEDS: LORazepam 1 MG TABLET PO PRN (10:01)
[2018-07-31] MEDS: amLODIPine BESYLATE 10 MG TABLET (FP) PO SCH (10:01)
[2018-07-31] MEDS: ASPIRIN 81 MG CHEWABLE TABLETS PO SCH (10:01)
[2018-07-31] MEDS ORDERED: SODIUM CHLORIDE 250 ML IV PRN (10:23)
[2018-07-31] MEDS ORDERED: PT OWN MED DRAWER 7, Y5N ONE ×2 (10:25→22:52)
[2018-07-31] MEDS: DULoxetine HCL 20 MG CAPSULE.DR (FP) PO SCH (10:32)
--- NOTE | 2018-07-31 12:37 | PN ---
Physical Exam: SUBJECTIVE: Patient seen and examined at bedside. no acute events overnight- patient is still very tearful and complaining of generalized pain, especially in the abdomen. she states her breathing is a little better but is still very sad and depressed. she is going for the CT scan tomorrow before HD. she denies any CP/SOB/N/V fevers or chills. OBJECTIVE: Vital Signs Period Temp Pulse Resp BP Sys/Jin Pulse Ox Last 24 Hr 98.1 F-98.6 F 71-90 18-20 129-147/61-86 94-100 GENERAL: The patient is awake, alert, very tearful EYES: no scleral icterus NECK: no JVD, no lymphadenopathy LUNGS: B/L expiratory wheezes. HEART: Regular rate and rhythm, S1, S2 without murmur, rub or gallop. ABDOMEN: Soft, diffuse tenderness upon palpation; reducible inguinal hernia; pelvic scar EXTREMITIES: 2+ pulses, warm, well-perfused, trace edema. PSYCH: tearful, depressed SKIN: Warm, dry, normal turgor, no rashes or lesions noted Laboratory Results - last 24 hr 07/28/18 07/30/18 07/31/18 13:30 17:13 05:22 WBC RBC Hgb Hct MCV MCH MCHC RDW Plt Count MPV Sodium Potassium Chloride Carbon Dioxide Anion Gap BUN Creatinine Creat Clearance w eGFR POC Glucometer 96 89 Random Glucose Calcium Phosphorus Magnesium Hep C Ab Diagnostic <0.1 07/31/18 07/31/18 06:10 06:10 WBC 3.3 L RBC 3.38 L Hgb 9.2 L Hct 28.4 L MCV 84.2 MCH 27.3 MCHC 32.4 RDW 15.9 H Plt Count 50 L MPV 9.8 Sodium 140 Potassium 4.0 Chloride 103 Carbon Dioxide 28 Anion Gap 9 BUN 32 H Creatinine 4.7 H Creat Clearance w eGFR 9.62 POC Glucometer Random Glucose 82 Calcium 8.7 Phosphorus 6.0 H Magnesium 1.9 Hep C Ab Diagnostic Active Medications Generic Name Dose Route Start Last Admin Trade Name Freq PRN Reason Stop Dose Admin Albuterol Sulfate 1 amp 07/28/18 01:07 07/28/18 22:35 Ventolin 0.5% - NEB 1 amp Q4H PRN Administration SHORT OF BREATH/WHEEZING Albuterol/Ipratropium 1 amp 07/28/18 01:07 07/29/18 07:58 Duoneb - NEB 1 amp Q6H PRN Administration SHORTNESS OF BREATH Amlodipine Besylate 10 mg 07/30/18 10:00 07/31/18 10:01 Norvasc - PO 10 mg DAILY NANCY Administration Aspirin 81 mg 07/30/18 10:00 07/31/18 10:01 Asa - PO 81 mg DAILY NANCY Administration Duloxetine HCl 20 mg 07/31/18 10:00 07/31/18 10:32 Cymbalta - PO 20 mg DAILY NANCY Administration Furosemide 40 mg 07/30/18 10:00 07/31/18 10:01 Lasix - PO 40 mg DAILY NANCY Administration Insulin Aspart 1 vial 07/28/18 07:00 07/31/18 11:42 Novolog Vial Sliding Scale - SQ Not Given ACHS NANCY Protocol Lorazepam 2 mg 07/28/18 11:18 07/30/18 14:34 Ativan Injection - IM 2 mg Q6H PRN Administration AGITATION Lorazepam 1 mg 07/30/18 19:01 07/31/18 10:01 Ativan - PO 1 mg TID PRN Administration ANXIETY Fluticasone/Salmeterol 1 puff 07/28/18 10:00 07/31/18 10:32 Advair 100mcg/50mcg - IH 1 puff BID NANCY Administration ASSESSMENT/PLAN: 58 y/o female with PMH asthma, gallbladder ca, ESRD (dialysis t,th,s), HTN, cirrhosis, cocaine dependence presents to the ED with complaints of shortness of breath, wheezing, chest discomfort and generalized abdominal pain in addition to having missed her dialysis appointment #Depression -patient tearful again this am -no active plan for SI -Dr Sellers saw patient- added cymbalta 20 daily -social workers involved- potential voluntary inpatient psych? # ESRD patient tolerated dialysis well yesterday -plan for dialysis tomorrow -nephro on board -monitor electrolytes and fluid status #Abdominal Pain patient found to have elevated LFTS on admission in addition to enlarged pancreas -GI consulted; recommended CT scan of abdomen W/WO contrast to evaluate liver - CT scan of abdomen w/wo contrast tomorrow AM before HD -patient also found to have UTI growing ESBL; ID consulted no treatment #Troponinemia -patients most recent troponin in 0.14 -likey due to ESRD/demand ischemia -monitor #HTN -will confirm with pharmacy patients home medications #Dyspnea -c/w advair, duonebs and albuterol #Thrombocytopenia likely due to her cirrhosis -monitor for active signs of bleeding -heme/onc consulted- recs appreciated; chronic/stable thrombocytopenia F/E/N not on fluids monitor electrolytes renal diet DVT PPX SCDS Problem List - Problems (1) Anxiety Code(s): F41.9 - ANXIETY DISORDER, UNSPECIFIED (2) Asthma Code(s): J45.909 - UNSPECIFIED ASTHMA, UNCOMPLICATED (3) Chronic renal insufficiency Code(s): N18.9 - CHRONIC KIDNEY DISEASE, UNSPECIFIED (4) Missed dialysis Code(s): UJE0807 - (5) Asthma exacerbation Code(s): J45.901 - UNSPECIFIED ASTHMA WITH (ACUTE) EXACERBATION Qualifiers: Asthma severity: moderate Asthma persistence: persistent Qualified Code(s ): J45.41 - Moderate persistent asthma with (acute) exacerbation Visit type - Emergency Visit Emergency Visit: Yes ED Registration Date: 07/27/18 Care time: The patient presented to the Emergency Department on the above date and was hospitalized for further evaluation of their emergent condition. - New Patient This patient is new to me today: No - Critical Care Critical Care patient: No
--- NOTE | 2018-07-31 14:01 | PN ---
GI Progress Note Subjective: No acute events complains of pain all over - Objective Vital Signs: Vital Signs Temperature 99 F 07/31/18 13:32 Pulse Rate 88 07/31/18 13:32 Respiratory Rate 20 07/31/18 13:32 Blood Pressure 138/63 07/31/18 13:32 O2 Sat by Pulse Oximetry (%) 100 07/31/18 09:00 Constitutional: Calm Eyes: No: Sclera Icterus Cardiovascular: Yes: Regular Rate and Rhythm, Murmur Respiratory: Yes: CTA Bilaterally ...Auscultate: Yes: Normoactive Bowel Sounds ...Palpate: No: Tenderness Edema: No (No LE edema) Neurological: Yes: Alert Labs: CBC, BMP 07/31/18 06:10 07/31/18 06:10 INR, PTT INR 1.02 (0.83-1.09) 07/27/18 19:52 Laboratory Tests 07/28/18 07/31/18 13:30 06:10 Tumor Marker AFP Pending Hep C Ab Diagnostic <0.1 Problem List - Problems (1) Abdominal pain Assessment/Plan: Triple phase CT scan of the abdomen and pelvis ordered and pending Code(s): R10.9 - UNSPECIFIED ABDOMINAL PAIN (2) Gallbladder cancer Assessment/Plan: Oncology evalution Code(s): C23 - MALIGNANT NEOPLASM OF GALLBLADDER (3) Cirrhosis of liver Assessment/Plan: Triple phase CT scan of the abdomen and pelvis pending AFP tumor marker pending Advised complete avoidance of alcohol Code(s): K74.60 - UNSPECIFIED CIRRHOSIS OF LIVER (4) Screening for colorectal cancer Assessment/Plan: Outpatient evaluation Code(s): Z12.11 - ENCOUNTER FOR SCREENING FOR MALIGNANT NEOPLASM OF COLON; Z12.12 - ENCOUNTER FOR SCREENING FOR MALIGNANT NEOPLASM OF RECTUM (5) Depression Assessment/Plan: W/u per primary team Code(s): F32.9 - MAJOR DEPRESSIVE DISORDER, SINGLE EPISODE, UNSPECIFIED (6) Pain Assessment/Plan: Complains of pain all over. Suspect prescription med abuse and was + for cocaine. eval per Primary team Code(s): R52 - PAIN, UNSPECIFIED
--- NOTE | 2018-07-31 15:20 | CONSULT ---
Consult Consult Specialty:: Heme/Onc Referred by:: Hospitalist Reason for Consultation:: history og gallbladder cancer - History of Present Illness Chief Complaint: pain all over - Past Medical History Cardio/Vascular: Yes: HTN. No: AFIB Pulmonary: Yes: Asthma Gastrointestinal: Yes: Cancer (gall bladder s/p surgery and chemo) Hepatobiliary: Yes: Cirrhosis Renal/: Yes: Renal Failure ...LMP: 11/11/13 Musculoskeletal: Yes: Other (left leg pain) Endocrine: Yes: Diabetes Mellitus - Past Surgical History Past Surgical History: Yes: Cholecystectomy, (x2) Additional Surgical History: permacath placement - Alcohol/Substance Use Hx Alcohol Use: No History of Substance Use: reports: None - Smoking History Smoking history: Never smoked Have you smoked in the past 12 months: No Aproximately how many cigarettes per day: 0 - Social History Usual Living Arrangement: Other ADL: Independent Occupation: Unemployed History of Recent Travel: No Home Medications - Allergies Allergies/Adverse Reactions: Allergies Allergy/AdvReac Type Severity Reaction Status Date / Time No Known Allergies Allergy Verified 07/27/18 18:14 - Home Medications Home Medications: Ambulatory Orders Albuterol Sulfate Inhaler - [Ventolin HFA Inhaler -] 2 inh PO Q6H PRN 10/07/17 Amlodipine Besylate [Norvasc -] 10 mg PO DAILY 10/07/17 Albuterol 0.083% Nebulizer [place] [Ventolin 0.083% Nebulizer Soln -] 1 amp NEB Q4H PRN #1 amp 10/09/17 Insulin (Levemir) [Levemir Vial] 30 units SQ AM #1 vial 10/09/17 Salmeterol/Fluticasone [Advair 500Mcg/50Mcg -] 1 inh IH BID #1 inh 10/09/17 Family Disease History - Family Disease History Family Disease History: Diabetes: Mother (: cancer, age 67 (? lymphnode in neck)), CA: Father (, 69 "bone cancer"), Mother, Other: Grandparent ( Maternal GF: possible colon cancer), Father, Mother, Brother (5, does not know their med history), Sister (1, does not know her med history), Son (1, healthy) , Daughter (1, healthy) Physical Exam Vital Signs: Vital Signs Temperature 99 F 07/31/18 13:32 Pulse Rate 88 07/31/18 13:32 Respiratory Rate 20 07/31/18 13:32 Blood Pressure 138/63 07/31/18 13:32 O2 Sat by Pulse Oximetry (%) 100 07/31/18 09:00 Labs: CBC, BMP 07/31/18 06:10 07/31/18 06:10
--- NOTE | 2018-07-31 16:04 | PN ---
Progress Note, Physician History of Present Illness: Pt seen and examined at bedside. She is awake and appears comfortable. She denies shortness of breath. - Current Medication List Current Medications: Active Medications Albuterol Sulfate (Ventolin 0.5% -) 1 amp NEB Q4H PRN PRN Reason: SHORT OF BREATH/WHEEZING Last Admin: 07/28/18 22:35 Dose: 1 amp Albuterol/Ipratropium (Duoneb -) 1 amp NEB Q6H PRN PRN Reason: SHORTNESS OF BREATH Last Admin: 07/29/18 07:58 Dose: 1 amp Amlodipine Besylate (Norvasc -) 10 mg PO DAILY [facility] Last Admin: 07/31/18 10:01 Dose: 10 mg Aspirin (Asa -) 81 mg PO DAILY [facility] Last Admin: 07/31/18 10:01 Dose: 81 mg Duloxetine HCl (Cymbalta -) 20 mg PO DAILY [facility] Last Admin: 07/31/18 10:32 Dose: 20 mg Furosemide (Lasix -) 40 mg PO DAILY [facility] Last Admin: 07/31/18 10:01 Dose: 40 mg Insulin Aspart (Novolog Vial Sliding Scale -) 1 vial SQ ACHS [facility]; Protocol Last Admin: 07/31/18 11:42 Dose: Not Given Lorazepam (Ativan Injection -) 2 mg IM Q6H PRN PRN Reason: AGITATION Last Admin: 07/30/18 14:34 Dose: 2 mg Lorazepam (Ativan -) 1 mg PO TID PRN PRN Reason: ANXIETY Last Admin: 07/31/18 10:01 Dose: 1 mg Fluticasone/Salmeterol (Advair 100mcg/50mcg -) 1 puff IH BID [facility] Last Admin: 07/31/18 10:32 Dose: 1 puff - Objective Vital Signs: Vital Signs Temperature 99 F 07/31/18 13:32 Pulse Rate 88 07/31/18 13:32 Respiratory Rate 20 07/31/18 13:32 Blood Pressure 138/63 07/31/18 13:32 O2 Sat by Pulse Oximetry (%) 100 07/31/18 09:00 Constitutional: Yes: Calm Eyes: Yes: Conjunctiva Clear HENT: Yes: Atraumatic Cardiovascular: Yes: S1, S2 Respiratory: Yes: CTA Bilaterally Gastrointestinal: Yes: Soft Genitourinary: Yes: WNL Musculoskeletal: Yes: WNL Edema: No Neurological: Yes: Confusion Labs: CBC, BMP 07/31/18 06:10 07/31/18 06:10 INR, PTT INR 1.02 (0.83-1.09) 07/27/18 19:52 Problem List - Problems (1) ESRD (end stage renal disease) Code(s): N18.6 - END STAGE RENAL DISEASE (2) Missed dialysis Code(s): NTR0600 - (3) Volume overload Code(s): E87.70 - FLUID OVERLOAD, UNSPECIFIED Assessment/Plan Current Medications Generic Name Dose Route Start Last Admin Trade Name Freq PRN Reason Stop Dose Admin Albuterol Sulfate 1 amp 07/28/18 01:07 07/28/18 22:35 Ventolin 0.5% - NEB 1 amp Q4H PRN Administration SHORT OF BREATH/WHEEZING Albuterol/Ipratropium 1 amp 07/28/18 01:07 07/29/18 07:58 Duoneb - NEB 1 amp Q6H PRN Administration SHORTNESS OF BREATH Amlodipine Besylate 10 mg 07/30/18 10:00 07/31/18 10:01 Norvasc - PO 10 mg DAILY NANCY Administration Aspirin 81 mg 07/30/18 10:00 07/31/18 10:01 Asa - PO 81 mg DAILY NANCY Administration Duloxetine HCl 20 mg 07/31/18 10:00 07/31/18 10:32 Cymbalta - PO 20 mg DAILY NANCY Administration Furosemide 40 mg 07/30/18 10:00 07/31/18 10:01 Lasix - PO 40 mg DAILY NANCY Administration Insulin Aspart 1 vial 07/28/18 07:00 07/31/18 11:42 Novolog Vial Sliding Scale - SQ Not Given ACHS NANCY Protocol Lorazepam 2 mg 07/28/18 11:18 07/30/18 14:34 Ativan Injection - IM 2 mg Q6H PRN Administration AGITATION Lorazepam 1 mg 07/30/18 19:01 07/31/18 10:01 Ativan - PO 1 mg TID PRN Administration ANXIETY Fluticasone/Salmeterol 1 puff 07/28/18 10:00 07/31/18 10:32 Advair 100mcg/50mcg - IH 1 puff BID NANCY Administration Impression 1. ESRD 2. confusion 3. non compliance 4. pancytopenia 5. HTN 6. anemia Plan - will arrange for HD tomorrow - can get scan before HD - epogen for anemia - monitor bp - will follow Dr Waite
--- NOTE | 2018-07-31 18:22 | PN ---
Teaching Attending Note Name of Resident: Wanda Underwood ATTENDING PHYSICIAN STATEMENT I saw and evaluated the patient. I reviewed the resident's note and discussed the case with the resident. I agree with the resident's findings and plan as documented. SUBJECTIVE: OBJECTIVE: Vital Signs Period Temp Pulse Resp BP Sys/Jin Pulse Ox Last 24 Hr 98.1 F-99 F 71-88 18-20 129-138/61-86 94-100 Laboratory Results - last 24 hr 07/31/18 07/31/18 07/31/18 05:22 06:10 06:10 WBC 3.3 L RBC 3.38 L Hgb 9.2 L Hct 28.4 L MCV 84.2 MCH 27.3 MCHC 32.4 RDW 15.9 H Plt Count 50 L MPV 9.8 Sodium 140 Potassium 4.0 Chloride 103 Carbon Dioxide 28 Anion Gap 9 BUN 32 H Creatinine 4.7 H Creat Clearance w eGFR 9.62 POC Glucometer 89 Random Glucose 82 Calcium 8.7 Phosphorus 6.0 H Magnesium 1.9 Current Medications Generic Name Dose Route Start Last Admin Trade Name Freq PRN Reason Stop Dose Admin Albuterol Sulfate 1 amp 07/28/18 01:07 07/28/18 22:35 Ventolin 0.5% - NEB 1 amp Q4H PRN Administration SHORT OF BREATH/WHEEZING Albuterol/Ipratropium 1 amp 07/28/18 01:07 07/29/18 07:58 Duoneb - NEB 1 amp Q6H PRN Administration SHORTNESS OF BREATH Amlodipine Besylate 10 mg 07/30/18 10:00 07/31/18 10:01 Norvasc - PO 10 mg DAILY NANCY Administration Aspirin 81 mg 07/30/18 10:00 07/31/18 10:01 Asa - PO 81 mg DAILY NANCY Administration Duloxetine HCl 20 mg 07/31/18 10:00 07/31/18 10:32 Cymbalta - PO 20 mg DAILY NANCY Administration Epoetin Deshawn 4,000 unit 08/01/18 16:04 Epogen - IVPUSH 08/01/18 16:05 ONCE ONE Furosemide 40 mg 07/30/18 10:00 07/31/18 10:01 Lasix - PO 40 mg DAILY NANCY Administration Sodium Chloride 250 mls @ 3,000 mls/hr 07/31/18 16:04 Normal Saline - IV 08/01/18 16:04 PRN PRN Hypotension during Dialysis Insulin Aspart 1 vial 07/28/18 07:00 07/31/18 16:53 Novolog Vial Sliding Scale - SQ Not Given ACHS NANCY Protocol Lorazepam 2 mg 07/28/18 11:18 07/30/18 14:34 Ativan Injection - IM 2 mg Q6H PRN Administration AGITATION Lorazepam 1 mg 07/30/18 19:01 07/31/18 10:01 Ativan - PO 1 mg TID PRN Administration ANXIETY Fluticasone/Salmeterol 1 puff 07/28/18 10:00 07/31/18 10:32 Advair 100mcg/50mcg - IH 1 puff BID NANCY Administration ASSESSMENT AND PLAN:
[2018-08-01 00:11] LABS: HBSAG SCREEN Negative (Negative); HEP A AB, IGM Negative (Negative); HEP B CORE AB, TOT Positive (Negative)
[2018-08-01] MEDS: INSULIN SLIDING SCALE (NOVOLOG) 1 VIAL SQ SCH ×4 (06:14→22:05)
[2018-08-01 07:22] LABS: HEMATOCRIT 29.8 % (32.4-45.2); HEMOGLOBIN 9.6 GM/dL (10.7-15.3); MCH 27.1 pg (25.7-33.7); MCHC 32.1 g/dl (32.0-36.0); MEAN CELL VOLUME 84.5 fl (80-96); MEAN PLT VOLUME 9.5 fl (7.5-11.1); PLATELET COUNT 53 K/MM3 (134-434); RBC 3.53 M/mm3 (3.60-5.2); RDW 15.8 % (11.6-15.6); WHITE BLOOD COUNT 3.7 K/mm3 (4.0-10.0)
[2018-08-01] MEDS ORDERED: PT OWN MED DRAWER 7, Y5N ONE ×4 (07:48→21:36)
[2018-08-01 08:22] LABS: ANION GAP 11 MMOL/L (8-16); BLOOD UREA NITROGEN 46 mg/dL (7-18); CALCIUM 8.6 mg/dL (8.5-10.1); CHLORIDE 103 mmol/L (98-107); CO2 25 mmol/L (21-32); CREATININE 6.1 mg/dL (0.55-1.3); GLUCOSE,RANDOM 106 mg/dL (74-106); POTASSIUM 4.2 mmol/L (3.5-5.1); SODIUM 138 mmol/L (136-145)
--- NOTE | 2018-08-01 08:40 | PN ---
Physical Exam: SUBJECTIVE: Patient seen and examined at bedside. no acute events overnight- patient states she is still having abdominal pain but that her breathing might be slightly improved. patients mood seems to be a little bit more improved this am, she denies any CP/N/V fevers or chills. Patient going for abdominal CT before dialysis this am. OBJECTIVE: Vital Signs Period Temp Pulse Resp BP Sys/Jin Pulse Ox Last 24 Hr 98.1 F-99 F 71-88 20-20 137-146/63-86 96-100 GENERAL: The patient is awake, alert, in alight acute distress.. EYES: no scleral icterus . NECK:no JVD, no lymphadenopathy LUNGS: slight wheezes B/L HEART: Regular rate and rhythm, S1, S2 without murmur, rub or gallop. ABDOMEN: Soft, diffuse tenderness upon palpation, +BS in all four quadrants EXTREMITIES: 2+ pulses, warm, well-perfused, no edema. PSYCH: Normal mood, normal affect. SKIN: Warm, dry, normal turgor, no rashes or lesions noted Laboratory Results - last 24 hr 07/28/18 08/01/18 08/01/18 13:30 06:10 06:10 WBC 3.7 L RBC 3.53 L Hgb 9.6 L Hct 29.8 L MCV 84.5 MCH 27.1 MCHC 32.1 RDW 15.8 H Plt Count 53 L MPV 9.5 Sodium 138 Potassium 4.2 Chloride 103 Carbon Dioxide 25 Anion Gap 11 BUN 46 H Creatinine 6.1 H Creat Clearance w eGFR 7.12 POC Glucometer Random Glucose 106 Calcium 8.6 Hep A IgM Ab Confirm Negative Hepatitis A Ab Total Positive H Hep Bs Antigen Negative Hep Bs Antibody Reactive Hep B Core Total Ab Positive H 08/01/18 06:11 WBC RBC Hgb Hct MCV MCH MCHC RDW Plt Count MPV Sodium Potassium Chloride Carbon Dioxide Anion Gap BUN Creatinine Creat Clearance w eGFR POC Glucometer 114 Random Glucose Calcium Hep A IgM Ab Confirm Hepatitis A Ab Total Hep Bs Antigen Hep Bs Antibody Hep B Core Total Ab Active Medications Generic Name Dose Route Start Last Admin Trade Name Freq PRN Reason Stop Dose Admin Albuterol Sulfate 1 amp 07/28/18 01:07 07/28/18 22:35 Ventolin 0.5% - NEB 1 amp Q4H PRN Administration SHORT OF BREATH/WHEEZING Albuterol/Ipratropium 1 amp 07/28/18 01:07 07/29/18 07:58 Duoneb - NEB 1 amp Q6H PRN Administration SHORTNESS OF BREATH Amlodipine Besylate 10 mg 07/30/18 10:00 07/31/18 10:01 Norvasc - PO 10 mg DAILY NANCY Administration Aspirin 81 mg 07/30/18 10:00 07/31/18 10:01 Asa - PO 81 mg DAILY NANCY Administration Duloxetine HCl 20 mg 07/31/18 10:00 07/31/18 10:32 Cymbalta - PO 20 mg DAILY NANCY Administration Epoetin Deshawn 4,000 unit 08/01/18 16:04 Epogen - IVPUSH 08/01/18 16:05 ONCE ONE Furosemide 40 mg 07/30/18 10:00 07/31/18 10:01 Lasix - PO 40 mg DAILY NANCY Administration Sodium Chloride 250 mls @ 3,000 mls/hr 07/31/18 16:04 Normal Saline - IV 08/01/18 16:04 PRN PRN Hypotension during Dialysis Insulin Aspart 1 vial 07/28/18 07:00 08/01/18 06:14 Novolog Vial Sliding Scale - SQ Not Given ACHS NANCY Protocol Lorazepam 2 mg 07/28/18 11:18 07/30/18 14:34 Ativan Injection - IM 2 mg Q6H PRN Administration AGITATION Lorazepam 1 mg 07/30/18 19:01 07/31/18 10:01 Ativan - PO 1 mg TID PRN Administration ANXIETY Fluticasone/Salmeterol 1 puff 07/28/18 10:00 07/31/18 22:47 Advair 100mcg/50mcg - IH 1 puff BID NANCY Administration ASSESSMENT/PLAN: 58 y/o female with PMH asthma, gallbladder ca, ESRD (dialysis t,th,s), HTN, cirrhosis, cocaine dependence presents to the ED with complaints of shortness of breath, wheezing, chest discomfort and generalized abdominal pain in addition to having missed her dialysis appointment #Depression -mood seems improved -no active plan for SI -spoke with Dr. Sloan, [facility], started patient on cymbalta 20mg daily -social workers involved # ESRD patient tolerated dialysis well yesterday -plan for dialysis today after CT scan -nephro on board -monitor electrolytes and fluid status #Abdominal Pain patient found to have elevated LFTS on admission in addition to enlarged pancreas -GI consulted; -patient had CT scan of the abdomen which showed some hepatosplenomegaly, cirrhosis and a lobulated liver and an irregularity on the liver - patient getting abdominal CT scan w/wo contrast this AM -hepatitis serology results back: Hep A Ab + and Hep B core AB + -patient also found to have UTI growing ESBL; ID consulted no treatment #Gallbladder Ca -DR Dumont- patients oncologist consulted and evaluated the patient -suggested a further inpatient workup -LDH/retic/iron studies pending r/o possible MDS -suggested an abdominal MRI to further evaluate abdominal discomfort #Troponinemia -patients most recent troponin in 0.14 -likey due to ESRD/demand ischemia -monitor #HTN -will confirm with pharmacy patients home medications #Dyspnea -c/w advair, duonebs and albuterol #Thrombocytopenia likely due to her cirrhosis -monitor for active signs of bleeding F/E/N not on fluids monitor electrolytes renal diet DVT PPX SCDS Problem List - Problems (1) Anxiety Code(s): F41.9 - ANXIETY DISORDER, UNSPECIFIED (2) Asthma Code(s): J45.909 - UNSPECIFIED ASTHMA, UNCOMPLICATED (3) Chronic renal insufficiency Code(s): N18.9 - CHRONIC KIDNEY DISEASE, UNSPECIFIED (4) Missed dialysis Code(s): [id number] - (5) Asthma exacerbation Code(s): J45.901 - UNSPECIFIED ASTHMA WITH (ACUTE) EXACERBATION Qualifiers: Asthma severity: moderate Asthma persistence: persistent Qualified Code(s ): J45.41 - Moderate persistent asthma with (acute) exacerbation Visit type - Emergency Visit Emergency Visit: Yes ED Registration Date: 07/27/18 Care time: The patient presented to the Emergency Department on the above date and was hospitalized for further evaluation of their emergent condition. - New Patient This patient is new to me today: No - Critical Care Critical Care patient: No
[2018-08-01] MEDS ORDERED: EPOETIN ALFA 2,000 UNIT/1 ML VIAL IVPUSH ONE (11:00)
--- NOTE | 2018-08-01 11:41 | PN ---
Progress Note, Physician History of Present Illness: Pt seen and examined at bedside. She is awake and alert. She denies shortness of breath. She does get abdominal discomfort when she eats. She is tolerating HD. - Current Medication List Current Medications: Active Medications Albuterol Sulfate (Ventolin 0.5% -) 1 amp NEB Q4H PRN PRN Reason: SHORT OF BREATH/WHEEZING Last Admin: 07/28/18 22:35 Dose: 1 amp Albuterol/Ipratropium (Duoneb -) 1 amp NEB Q6H PRN PRN Reason: SHORTNESS OF BREATH Last Admin: 07/29/18 07:58 Dose: 1 amp Amlodipine Besylate (Norvasc -) 10 mg PO DAILY [facility] Last Admin: 07/31/18 10:01 Dose: 10 mg Aspirin (Asa -) 81 mg PO DAILY [facility] Last Admin: 07/31/18 10:01 Dose: 81 mg Duloxetine HCl (Cymbalta -) 20 mg PO DAILY [facility] Last Admin: 07/31/18 10:32 Dose: 20 mg Furosemide (Lasix -) 40 mg PO DAILY [facility] Last Admin: 07/31/18 10:01 Dose: 40 mg Insulin Aspart (Novolog Vial Sliding Scale -) 1 vial SQ ACHS [facility]; Protocol Last Admin: 08/01/18 06:14 Dose: Not Given Lorazepam (Ativan Injection -) 2 mg IM Q6H PRN PRN Reason: AGITATION Last Admin: 07/30/18 14:34 Dose: 2 mg Lorazepam (Ativan -) 1 mg PO TID PRN PRN Reason: ANXIETY Last Admin: 07/31/18 10:01 Dose: 1 mg Fluticasone/Salmeterol (Advair 100mcg/50mcg -) 1 puff IH BID [facility] Last Admin: 07/31/18 22:47 Dose: 1 puff - Objective Vital Signs: Vital Signs Temperature 98.6 F 08/01/18 06:00 Pulse Rate 80 08/01/18 06:00 Respiratory Rate 20 08/01/18 09:00 Blood Pressure 146/76 08/01/18 06:00 O2 Sat by Pulse Oximetry (%) 96 08/01/18 09:00 Constitutional: Yes: Calm Eyes: Yes: Conjunctiva Clear HENT: Yes: Atraumatic Neck: Yes: Supple Cardiovascular: Yes: S1, S2 Respiratory: Yes: CTA Bilaterally, On Nasal O2 Gastrointestinal: Yes: Soft, Abdomen, Obese, Tenderness Genitourinary: Yes: WNL Musculoskeletal: Yes: WNL Extremities: Yes: WNL Edema: No Neurological: Yes: Oriented Psychiatric: Yes: Oriented Labs: CBC, BMP 08/01/18 06:10 08/01/18 06:10 INR, PTT INR 1.02 (0.83-1.09) 07/27/18 19:52 Problem List - Problems (1) ESRD (end stage renal disease) Code(s): N18.6 - END STAGE RENAL DISEASE (2) Missed dialysis Code(s): WRF5048 - (3) Volume overload Code(s): E87.70 - FLUID OVERLOAD, UNSPECIFIED Assessment/Plan Current Medications Generic Name Dose Route Start Last Admin Trade Name Freq PRN Reason Stop Dose Admin Albuterol Sulfate 1 amp 07/28/18 01:07 07/28/18 22:35 Ventolin 0.5% - NEB 1 amp Q4H PRN Administration SHORT OF BREATH/WHEEZING Albuterol/Ipratropium 1 amp 07/28/18 01:07 07/29/18 07:58 Duoneb - NEB 1 amp Q6H PRN Administration SHORTNESS OF BREATH Amlodipine Besylate 10 mg 07/30/18 10:00 07/31/18 10:01 Norvasc - PO 10 mg DAILY [facility] Administration Aspirin 81 mg 07/30/18 10:00 07/31/18 10:01 Asa - PO 81 mg DAILY [facility] Administration Duloxetine HCl 20 mg 07/31/18 10:00 07/31/18 10:32 Cymbalta - PO 20 mg DAILY [facility] Administration Furosemide 40 mg 07/30/18 10:00 07/31/18 10:01 Lasix - PO 40 mg DAILY [facility] Administration Insulin Aspart 1 vial 07/28/18 07:00 08/01/18 06:14 Novolog Vial Sliding Scale - SQ Not Given ACHS [facility] Protocol Lorazepam 2 mg 07/28/18 11:18 07/30/18 14:34 Ativan Injection - IM 2 mg Q6H PRN Administration AGITATION Lorazepam 1 mg 07/30/18 19:01 07/31/18 10:01 Ativan - PO 1 mg TID PRN Administration ANXIETY Fluticasone/Salmeterol 1 puff 07/28/18 10:00 07/31/18 22:47 Advair 100mcg/50mcg - IH 1 puff BID [facility] Administration Impression 1. ESRD 2. confusion 3. non compliance 4. pancytopenia 5. HTN 6. anemia Plan - HD today - ct shows cirrhosis - GI follow up, she does an irregularity to the right colon reported on ct scan - epogen for anemia - will UF volume on HD - monitor bp - will follow Dr Waite
[2018-08-01] MEDS: FLUTICASONE/SALMETEROL 100 MCG/50 MCG DISKUS IH SCH ×2 (11:51→22:05)
--- NOTE | 2018-08-01 12:18 | CONSULT ---
Consult Consult Specialty:: Hematology Oncology Reason for Consultation:: Hx GB cancer , vague abdominal pains, thrombocytopenia ,anemia - History of Present Illness Chief Complaint: c/ cough, SOB, occ vague upper abdo. pains History of Present Illness: 58 y/o AAF w hx pT2N0 Gallbladder cancer s/p cholecystectomy 08/21/12 , followed by adjuvant Gemzar in my [place] office ,then pt lost to follow up despite f/u recommendations. She now has been on HD for ESRD this year, hx Htn , asthma, DM2 , liver cirrhosis w splenomegaly. Pt c/o vague periumbilical discomfort, LUQ discomfort, akilah on bending forward. CT abdo showed changes c/w liver cirrhosis, mod. splenomegaly , mild thickening R colon , no evidence of malignancy. She reports occ loose stool w occ streaks of blood X 1 year. She denies anorexia/ N&V/weight loss. 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 No: AFIB Pulmonary: Yes: Asthma Gastrointestinal: Yes: Cancer (gall bladder s/p surgery and chemo) Hepatobiliary: Yes: Cirrhosis Renal/: Yes: Renal Failure Reproductive: No: Ectopic , Endometriosis, Fibroids, PID, Polycystic Ovary Syndrome, Postmenopausal, Other ...LMP: 11/11/13 Heme/Onc: Yes: Anemia, Thrombocytopenia Infectious Disease: No: AIDS, C-Diff, Herpes Zoster, HIV, MRSA, STD's, Tuberculosis, VREF, Other Psych: Yes: Addictions Musculoskeletal: No: Bursitis, Chronic low back pain, Hemiparesis, Hemiplegia, Osteoarthritis, Paraplegia, Other Rheumatology: No: Fibromyalgia, Gout, Lupus, Rheumatoid Arthritis, Sarcoidosis, Vasculitis, Other ENT: No: Allergic Rhinitis, Sinusitis, Other Endocrine: Yes: Diabetes Mellitus - Past Surgical History Past Surgical History: Yes: Cholecystectomy, (x2) Additional Surgical History: permacath placement - Alcohol/Substance Use Hx Alcohol Use: No History of Substance Use: reports: None - Smoking History Smoking history: Never smoked Have you smoked in the past 12 months: No Aproximately how many cigarettes per day: 0 - Social History Usual Living Arrangement: Other ADL: Independent Occupation: Unemployed History of Recent Travel: No Home Medications - Allergies Allergies/Adverse Reactions: Allergies Allergy/AdvReac Type Severity Reaction Status Date / Time No Known Allergies Allergy Verified 07/27/18 18:14 - Home Medications Home Medications: Ambulatory Orders Albuterol Sulfate Inhaler - [Ventolin HFA Inhaler -] 2 inh PO Q6H PRN 10/07/17 Amlodipine Besylate [Norvasc -] 10 mg PO DAILY 10/07/17 Albuterol 0.083% Nebulizer [place] [Ventolin 0.083% Nebulizer Soln -] 1 amp NEB Q4H PRN #1 amp 10/09/17 Insulin (Levemir) [Levemir Vial] 30 units SQ AM #1 vial 10/09/17 Salmeterol/Fluticasone [Advair 500Mcg/50Mcg -] 1 inh IH BID #1 inh 10/09/17 Family Disease History - Family Disease History Family Disease History: Diabetes: Mother (: cancer, age 67 (? lymphnode in neck)), CA: Father (, 69 "bone cancer"), Mother, Other: Grandparent ( Maternal GF: possible colon cancer), Father, Mother, Brother (5, does not know their med history), Sister (1, does not know her med history), Son (1, healthy) , Daughter (1, healthy) Review of Systems - Review of Systems Constitutional: reports: Loss of Appetite, Weakness Eyes: reports: No Symptoms HENT: reports: No Symptoms Neck: reports: No Symptoms Cardiovascular: reports: Edema, Shortness of Breath Respiratory: reports: Cough, SOB, SOB on Exertion Gastrointestinal: reports: Abdominal Pain, Diarrhea, Other (occ stool incontinenece) Genitourinary: reports: No Symptoms Breasts: reports: No Symptoms Reported Musculoskeletal: denies: No Symptoms, Back Pain, Crepitus, Decreased ROM, Extremity Pain, Joint Pain, Joint Swelling, Muscle Pain, Muscle Cramps, Muscle Weakness, Other Integumentary: denies: No Symptoms, Blister, Bruising, Change in Color, Eczema, Erythema, Incision, Lesions, Lump, Pallor, Pruritis, Rash, Wound, Other Neurological: denies: No Symptoms, Change in LOC, Change in Speech, Confusion, Dizziness, Headache, Incoordination, Numbness, Parasthesia, Pre-Existing Deficit , Seizure, Syncope, Tremors, Unsteady Gait, Weakness, Other Endocrine: reports: No Symptoms Hematology/Lymphatic: reports: No Symptoms Psychiatric: reports: No Symptoms Physical Exam Vital Signs: Vital Signs Temperature 98.6 F 08/01/18 06:00 Pulse Rate 80 08/01/18 06:00 Respiratory Rate 20 08/01/18 09:00 Blood Pressure 146/76 08/01/18 06:00 O2 Sat by Pulse Oximetry (%) 96 08/01/18 09:00 Constitutional: Yes: Calm, Obese Eyes: Yes: WNL, Conjunctiva Clear, EOM Intact HENT: Yes: WNL, Atraumatic, Normocephalic Neck: Yes: WNL, Supple, Trachea Midline Cardiovascular: Yes: WNL, Regular Rate and Rhythm Respiratory: Yes: Poor Air Entry, Wheezes Gastrointestinal: Yes: Normal Bowel Sounds, Abdomen, Obese, Splenomegaly ( minimal tenderness LUQ) ...Rectal Exam: Yes: Deferred Labs: CBC, BMP 08/01/18 06:10 08/01/18 06:10 Problem List - Problems (1) Anemia, chronic renal failure Code(s): N18.9 - CHRONIC KIDNEY DISEASE, UNSPECIFIED; D63.1 - ANEMIA IN CHRONIC KIDNEY DISEASE (2) Anemia, chronic renal failure Code(s): N18.9 - CHRONIC KIDNEY DISEASE, UNSPECIFIED; D63.1 - ANEMIA IN CHRONIC KIDNEY DISEASE (3) Thrombocytopenia Code(s): D69.6 - THROMBOCYTOPENIA, UNSPECIFIED (4) Splenomegaly, congestive, chronic Code(s): D73.2 - CHRONIC CONGESTIVE SPLENOMEGALY (5) Splenomegaly, congestive, chronic Code(s): D73.2 - CHRONIC CONGESTIVE SPLENOMEGALY (6) H/O gallbladder cancer Code(s): Z85.09 - PERSONAL HISTORY OF MALIGNANT NEOPLASM OF DIGESTIVE ORGANS (7) Cirrhosis of liver Code(s): K74.60 - UNSPECIFIED CIRRHOSIS OF LIVER Assessment/Plan Hx GB cancer, no obvious signs of recurrence in abdomen on CT ; needs upper/ lower endoscopy when clinical condition permits ; thrombocytopenia & pain may be due to congestive splenomegaly although possible treatment for this is risky ; consider MRI abdo C+ if pains continue ; order CEA/Ca19-9 levels/AFP/iron profile/thyroid profile / B12/folate/retic/LDH ; although anemia likely due to renal disease and chronic disease , can do a bone marrow exam at some point during hospitalization to r/o MDS /other less likely diseases.CXR if not recently done.Can consider further eval as clinical situation dictates . Will follow .
[2018-08-01] MEDS: FUROSEMIDE 40 MG TABLET (FP) PO SCH (13:38)
[2018-08-01] MEDS: LORazepam 1 MG TABLET PO PRN (13:38)
[2018-08-01] MEDS: DULoxetine HCL 20 MG CAPSULE.DR (FP) PO SCH (13:38)
[2018-08-01] MEDS: amLODIPine BESYLATE 10 MG TABLET (FP) PO SCH (13:38)
[2018-08-01] MEDS: ASPIRIN 81 MG CHEWABLE TABLETS PO SCH (13:38)
--- NOTE | 2018-08-01 17:51 | PN ---
GI Progress Note Subjective: Patient found laying in bed in no distress CT scan revealed cirrhotic appearing liver, irregular appearing right colon and moderate splenomegaly - Objective Vital Signs: Vital Signs Temperature 98.4 F 08/01/18 13:51 Pulse Rate 74 08/01/18 13:51 Respiratory Rate 20 08/01/18 13:51 Blood Pressure 138/85 08/01/18 13:51 O2 Sat by Pulse Oximetry (%) 96 08/01/18 09:00 Constitutional: Calm Eyes: No: Sclera Icterus Cardiovascular: Yes: Regular Rate and Rhythm Respiratory: Yes: CTA Bilaterally Gastrointestinal Inspection: No: Distention ...Auscultate: Yes: Normoactive Bowel Sounds ...Palpate: Yes: Tenderness (mild TTP mid abdomen) ...Percussion: No: Tympanitic Edema: No (No LE edema) Neurological: Yes: Alert Labs: CBC, BMP 08/01/18 06:10 08/01/18 06:10 INR, PTT INR 1.02 (0.83-1.09) 07/27/18 19:52 - ....Imaging Cat Scan: Report Reviewed, Image Reviewed Problem List - Problems (1) Abdominal pain Assessment/Plan: mid abdominal pain unchanged Code(s): R10.9 - UNSPECIFIED ABDOMINAL PAIN (2) Gallbladder cancer Assessment/Plan: Seen by oncology Code(s): C23 - MALIGNANT NEOPLASM OF GALLBLADDER (3) Cirrhosis of liver Assessment/Plan: Q 6 month AFP tumor marker and Hepatic US Screening for varices with EGD when medically cleared for procedure. Given finding of cocaine in urine tox, if large varices are noted, it would not be safe to initiate non-selective beta vaishnavi therapy as primary prevention of variceal bleeding and may need serial variceal band ligation as primary variceal bleed prevention. Code(s): K74.60 - UNSPECIFIED CIRRHOSIS OF LIVER (4) Abnormal CT scan Assessment/Plan: Thickening of right colon noted on CT scan When medically cleared for procedures, can proceed with colonoscopy. We discussed potential risks of the procedures like but not limited to bleeding, perforation requiring surgery to repair, infection, sedation medication effects all of which could be potentially life threatening. She has agreed to the procedure. Has significant thrombocytopenia and is on ASA 81mg once daily. Ideally should have platelets prior to porocedure. ? need for continued ASA for primary prevention. Will need risk / benefits of continued therapy to be assessed by primary team. Check stool for C. Diff. Complains of loose BM's Code(s): R93.89 - ABNORMAL FINDINGS ON DX IMAGING OF OTH BODY STRUCTURES
--- NOTE | 2018-08-01 17:52 | PN ---
Teaching Attending Note Name of Resident: Wanda Underwood ATTENDING PHYSICIAN STATEMENT I saw and evaluated the patient. I reviewed the resident's note and discussed the case with the resident. I agree with the resident's findings and plan as documented. SUBJECTIVE: OBJECTIVE: Vital Signs Period Temp Pulse Resp BP Sys/Jin Pulse Ox Last 24 Hr 98.2 F-98.7 F 62-84 18-20 121-146/70-85 96-96 Laboratory Results - last 24 hr 07/28/18 07/31/18 08/01/18 13:30 06:10 06:10 WBC 3.7 L RBC 3.53 L Hgb 9.6 L Hct 29.8 L MCV 84.5 MCH 27.1 MCHC 32.1 RDW 15.8 H Plt Count 53 L MPV 9.5 Sodium Potassium Chloride Carbon Dioxide Anion Gap BUN Creatinine Creat Clearance w eGFR POC Glucometer Random Glucose Calcium Tumor Marker AFP 5.9 Hep A IgM Ab Confirm Negative Hepatitis A Ab Total Positive H Hep Bs Antigen Negative Hep Bs Antibody Reactive Hep B Core Total Ab Positive H 08/01/18 08/01/18 08/01/18 06:10 06:11 14:07 WBC RBC Hgb Hct MCV MCH MCHC RDW Plt Count MPV Sodium 138 Potassium 4.2 Chloride 103 Carbon Dioxide 25 Anion Gap 11 BUN 46 H Creatinine 6.1 H Creat Clearance w eGFR 7.12 POC Glucometer 114 116 Random Glucose 106 Calcium 8.6 Tumor Marker AFP Hep A IgM Ab Confirm Hepatitis A Ab Total Hep Bs Antigen Hep Bs Antibody Hep B Core Total Ab Current Medications Generic Name Dose Route Start Last Admin Trade Name Freq PRN Reason Stop Dose Admin Albuterol Sulfate 1 amp 07/28/18 01:07 07/28/18 22:35 Ventolin 0.5% - NEB 1 amp Q4H PRN Administration SHORT OF BREATH/WHEEZING Albuterol/Ipratropium 1 amp 07/28/18 01:07 07/29/18 07:58 Duoneb - NEB 1 amp Q6H PRN Administration SHORTNESS OF BREATH Amlodipine Besylate 10 mg 07/30/18 10:00 08/01/18 13:38 Norvasc - PO 10 mg DAILY [facility] Administration Aspirin 81 mg 07/30/18 10:00 08/01/18 13:38 Asa - PO 81 mg DAILY [facility] Administration Duloxetine HCl 20 mg 07/31/18 10:00 08/01/18 13:38 Cymbalta - PO 20 mg DAILY [facility] Administration Furosemide 40 mg 07/30/18 10:00 08/01/18 13:38 Lasix - PO 40 mg DAILY [facility] Administration Insulin Aspart 1 vial 07/28/18 07:00 08/01/18 17:29 Novolog Vial Sliding Scale - SQ Not Given ACHS [facility] Protocol Lorazepam 2 mg 07/28/18 11:18 07/30/18 14:34 Ativan Injection - IM 2 mg Q6H PRN Administration AGITATION Lorazepam 1 mg 07/30/18 19:01 08/01/18 13:38 Ativan - PO 1 mg TID PRN Administration ANXIETY Fluticasone/Salmeterol 1 puff 07/28/18 10:00 08/01/18 11:51 Advair 100mcg/50mcg - IH 1 puff BID [facility] Administration ASSESSMENT AND PLAN:
[2018-08-02] MEDS ORDERED: PT OWN MED DRAWER 7, Y5N ONE ×4 (01:14→20:59)
[2018-08-02] MEDS: INSULIN SLIDING SCALE (NOVOLOG) 1 VIAL SQ SCH ×4 (06:08→21:29)
[2018-08-02 07:30] LABS: HEMOGLOBIN 9.8 GM/dL (10.7-15.3); MCH 27.2 pg (25.7-33.7); MCHC 32.5 g/dl (32.0-36.0); MEAN CELL VOLUME 83.6 fl (80-96); MEAN PLT VOLUME 9.4 fl (7.5-11.1); PLATELET COUNT 52 K/MM3 (134-434); RBC 3.59 M/mm3 (3.60-5.2); WHITE BLOOD COUNT 4.2 K/mm3 (4.0-10.0)
--- NOTE | 2018-08-02 07:53 | PN ---
Physical Exam: SUBJECTIVE: Patient seen and examined at bedside. no acute events overnight- patient states that she feels her breathing is better, however, she is still having abdominal pains and chronic pains all over her body. her mood is still slightly labile but improving. she doesn't have much of an appetite. she denies any CP/N/V fevers or chills OBJECTIVE: Vital Signs Period Temp Pulse Resp BP Sys/Jin Pulse Ox Last 24 Hr 98.2 F-98.8 F 62-77 18-20 121-146/70-85 96-97 GENERAL: The patient is awake, alert, in slight acute distress. EYES: no scleral icterus . NECK: no JVD, no lymphadenopathy LUNGS: CTA B/L; no rales, rhonchi or wheezing HEART: Regular rate and rhythm, S1, S2 without murmur, rub or gallop. ABDOMEN: Soft, tenderness upon palpation, non-distended +BS in all 4 quadrants EXTREMITIES: 2+ pulses, warm, well-perfused, no edema. PSYCH: slightly down SKIN: Warm, dry, normal turgor, no rashes or lesions noted Laboratory Results - last 24 hr 07/31/18 08/01/18 08/01/18 06:10 06:10 14:07 WBC RBC Hgb Hct MCV MCH MCHC RDW Plt Count MPV Sodium 138 Potassium 4.2 Chloride 103 Carbon Dioxide 25 Anion Gap 11 BUN 46 H Creatinine 6.1 H Creat Clearance w eGFR 7.12 POC Glucometer 116 Random Glucose 106 Calcium 8.6 Tumor Marker AFP 5.9 Urine Protein 08/01/18 08/02/18 18:20 06:00 WBC 4.2 RBC 3.59 L Hgb 9.8 L Hct 30.0 L MCV 83.6 MCH 27.2 MCHC 32.5 RDW 16.0 H Plt Count 52 L MPV 9.4 Sodium Potassium Chloride Carbon Dioxide Anion Gap BUN Creatinine Creat Clearance w eGFR POC Glucometer Random Glucose Calcium Tumor Marker AFP Urine Protein 221 H Active Medications Generic Name Dose Route Start Last Admin Trade Name Freq PRN Reason Stop Dose Admin Amlodipine Besylate 10 mg 07/30/18 10:00 08/01/18 13:38 Norvasc - PO 10 mg DAILY [facility] Administration Duloxetine HCl 20 mg 07/31/18 10:00 08/01/18 13:38 Cymbalta - PO 20 mg DAILY [facility] Administration Furosemide 40 mg 07/30/18 10:00 08/01/18 13:38 Lasix - PO 40 mg DAILY [facility] Administration Insulin Aspart 1 vial 07/28/18 07:00 08/02/18 06:08 Novolog Vial Sliding Scale - SQ Not Given ACHS [facility] Protocol Lorazepam 2 mg 07/28/18 11:18 07/30/18 14:34 Ativan Injection - IM 2 mg Q6H PRN Administration AGITATION Lorazepam 1 mg 07/30/18 19:01 08/01/18 13:38 Ativan - PO 1 mg TID PRN Administration ANXIETY Fluticasone/Salmeterol 1 puff 07/28/18 10:00 08/01/18 22:05 Advair 100mcg/50mcg - IH 1 puff BID [facility] Administration ASSESSMENT/PLAN: 58 y/o female with PMH asthma, gallbladder ca, ESRD (dialysis t,th,s), HTN, cirrhosis, cocaine dependence presents to the ED with complaints of shortness of breath, wheezing, chest discomfort and generalized abdominal pain in addition to having missed her dialysis appointment #Depression -mood seems improved -no active plan for SI -spoke with Dr. Sloan, [facility], started patient on cymbalta 20mg daily -social workers involved # ESRD patient tolerated dialysis well yesterday -nephro on board -monitor electrolytes and fluid status #Abdominal Pain patient found to have elevated LFTS on admission in addition to enlarged pancreas -GI consulted; patient going to get colonoscopy and EGD early next week -patient had CT scan of the abdomen which showed some hepatosplenomegaly, cirrhosis and a lobulated liver and an irregularity on the liver -hepatitis serology results back: Hep A Ab + and Hep B core AB + -patient also found to have UTI growing ESBL; ID consulted no treatment #Gallbladder Ca -DR Dumont- patients oncologist consulted and evaluated the patient -suggested a further inpatient workup -LDH/retic/iron studies/ pending r/o possible MDS -suggested an abdominal MRI to further evaluate abdominal discomfort #Troponinemia -patients most recent troponin in 0.14 -likey due to ESRD/demand ischemia -monitor #HTN -will confirm with pharmacy patients home medications #Dyspnea -c/w advair, duonebs and albuterol #Thrombocytopenia likely due to her cirrhosis -monitor for active signs of bleeding F/E/N not on fluids monitor electrolytes renal diet DVT PPX SCDS Problem List - Problems (1) Anxiety Code(s): F41.9 - ANXIETY DISORDER, UNSPECIFIED (2) Asthma Code(s): J45.909 - UNSPECIFIED ASTHMA, UNCOMPLICATED (3) Chronic renal insufficiency Code(s): N18.9 - CHRONIC KIDNEY DISEASE, UNSPECIFIED (4) Missed dialysis Code(s): YQJ3706 - (5) Asthma exacerbation Code(s): J45.901 - UNSPECIFIED ASTHMA WITH (ACUTE) EXACERBATION Qualifiers: Asthma severity: moderate Asthma persistence: persistent Qualified Code(s ): J45.41 - Moderate persistent asthma with (acute) exacerbation Visit type - Emergency Visit Emergency Visit: Yes ED Registration Date: 07/27/18 Care time: The patient presented to the Emergency Department on the above date and was hospitalized for further evaluation of their emergent condition. - New Patient This patient is new to me today: No - Critical Care Critical Care patient: No
[2018-08-02 08:05] LABS: ANION GAP 11 MMOL/L (8-16); BLOOD UREA NITROGEN 27 mg/dL (7-18); CALCIUM 8.9 mg/dL (8.5-10.1); CHLORIDE 101 mmol/L (98-107); CO2 28 mmol/L (21-32); CREATININE 4.3 mg/dL (0.55-1.3); GLUCOSE,RANDOM 74 mg/dL (74-106); LDH 211 U/L (84-246); POTASSIUM 3.9 mmol/L (3.5-5.1); SODIUM 139 mmol/L (136-145)
[2018-08-02] MEDS: DULoxetine HCL 20 MG CAPSULE.DR (FP) PO SCH (09:55)
[2018-08-02] MEDS: LORazepam 1 MG TABLET PO PRN ×2 (09:55→17:22)
[2018-08-02] MEDS: FLUTICASONE/SALMETEROL 100 MCG/50 MCG DISKUS IH SCH ×2 (09:55→21:29)
[2018-08-02] MEDS: amLODIPine BESYLATE 10 MG TABLET (FP) PO SCH (09:55)
[2018-08-02] MEDS: FUROSEMIDE 40 MG TABLET (FP) PO SCH (09:55)
--- NOTE | 2018-08-02 14:04 | PN ---
Teaching Attending Note Name of Resident: Wanda Underwood ATTENDING PHYSICIAN STATEMENT I saw and evaluated the patient. I reviewed the resident's note and discussed the case with the resident. I agree with the resident's findings and plan as documented. SUBJECTIVE: OBJECTIVE: Vital Signs Period Temp Pulse Resp BP Sys/Jin Pulse Ox Last 24 Hr 98.1 F-98.8 F 64-74 20-20 122-145/63-72 95-97 Laboratory Results - last 24 hr 08/01/18 08/01/18 08/02/18 14:07 18:20 06:00 WBC 4.2 RBC 3.59 L Hgb 9.8 L Hct 30.0 L MCV 83.6 MCH 27.2 MCHC 32.5 RDW 16.0 H Plt Count 52 L MPV 9.4 Retic Count Sodium Potassium Chloride Carbon Dioxide Anion Gap BUN Creatinine Creat Clearance w eGFR POC Glucometer 116 Random Glucose Calcium LD Total Vitamin B12 TSH Free T4 Urine Protein 221 H 08/02/18 08/02/18 08/02/18 06:00 06:00 06:00 WBC RBC Hgb Hct MCV MCH MCHC RDW Plt Count MPV Retic Count 1.96 H Sodium 139 Potassium 3.9 Chloride 101 Carbon Dioxide 28 Anion Gap 11 BUN 27 H Creatinine 4.3 H Creat Clearance w eGFR 10.65 POC Glucometer Random Glucose 74 Calcium 8.9 LD Total 211 Vitamin B12 1501 H TSH 0.93 Free T4 1.03 Urine Protein 08/02/18 11:12 WBC RBC Hgb Hct MCV MCH MCHC RDW Plt Count MPV Retic Count Sodium Potassium Chloride Carbon Dioxide Anion Gap BUN Creatinine Creat Clearance w eGFR POC Glucometer 98 Random Glucose Calcium LD Total Vitamin B12 TSH Free T4 Urine Protein Current Medications Generic Name Dose Route Start Last Admin Trade Name Freq PRN Reason Stop Dose Admin Amlodipine Besylate 10 mg 07/30/18 10:00 08/02/18 09:55 Norvasc - PO 10 mg DAILY [facility] Administration Duloxetine HCl 20 mg 07/31/18 10:00 08/02/18 09:55 Cymbalta - PO 20 mg DAILY [facility] Administration Furosemide 40 mg 07/30/18 10:00 08/02/18 09:55 Lasix - PO 40 mg DAILY [facility] Administration Insulin Aspart 1 vial 07/28/18 07:00 08/02/18 11:37 Novolog Vial Sliding Scale - SQ Not Given ACHS [facility] Protocol Lorazepam 2 mg 07/28/18 11:18 07/30/18 14:34 Ativan Injection - IM 2 mg Q6H PRN Administration AGITATION Lorazepam 1 mg 07/30/18 19:01 08/02/18 09:55 Ativan - PO 1 mg TID PRN Administration ANXIETY Fluticasone/Salmeterol 1 puff 07/28/18 10:00 08/02/18 09:55 Advair 100mcg/50mcg - IH 1 puff BID N[facility]Y Administration ASSESSMENT AND PLAN:
[2018-08-02] MEDS ORDERED: SODIUM CHLORIDE 250 ML IV PRN (16:12)
--- NOTE | 2018-08-02 16:12 | PN ---
Progress Note, Physician History of Present Illness: Pt seen and examined at bedside. She still has abdominal discomfort. - Current Medication List Current Medications: Active Medications Amlodipine Besylate (Norvasc -) 10 mg PO DAILY [facility] Last Admin: 08/02/18 09:55 Dose: 10 mg Duloxetine HCl (Cymbalta -) 20 mg PO DAILY [facility] Last Admin: 08/02/18 09:55 Dose: 20 mg Furosemide (Lasix -) 40 mg PO DAILY [facility] Last Admin: 08/02/18 09:55 Dose: 40 mg Insulin Aspart (Novolog Vial Sliding Scale -) 1 vial SQ ACHS [facility]; Protocol Last Admin: 08/02/18 11:37 Dose: Not Given Lorazepam (Ativan Injection -) 2 mg IM Q6H PRN PRN Reason: AGITATION Last Admin: 07/30/18 14:34 Dose: 2 mg Lorazepam (Ativan -) 1 mg PO TID PRN PRN Reason: ANXIETY Last Admin: 08/02/18 09:55 Dose: 1 mg Fluticasone/Salmeterol (Advair 100mcg/50mcg -) 1 puff IH BID [facility] Last Admin: 08/02/18 09:55 Dose: 1 puff - Objective Vital Signs: Vital Signs Temperature 98.2 F 08/02/18 14:12 Pulse Rate 80 08/02/18 14:12 Respiratory Rate 20 08/02/18 14:12 Blood Pressure 129/74 08/02/18 14:12 O2 Sat by Pulse Oximetry (%) 95 08/02/18 09:00 Constitutional: Yes: Calm Eyes: Yes: Conjunctiva Clear HENT: Yes: Atraumatic Cardiovascular: Yes: S1, S2 Respiratory: Yes: CTA Bilaterally Gastrointestinal: Yes: Normal Bowel Sounds, Soft Genitourinary: Yes: WNL Edema: No Neurological: Yes: Oriented Labs: CBC, BMP 08/02/18 06:00 08/02/18 06:00 INR, PTT INR 1.02 (0.83-1.09) 07/27/18 19:52 Problem List - Problems (1) ESRD (end stage renal disease) Code(s): N18.6 - END STAGE RENAL DISEASE (2) Missed dialysis Code(s): [id number] - (3) Volume overload Code(s): E87.70 - FLUID OVERLOAD, UNSPECIFIED Assessment/Plan Current Medications Generic Name Dose Route Start Last Admin Trade Name Freq PRN Reason Stop Dose Admin Amlodipine Besylate 10 mg 07/30/18 10:00 08/02/18 09:55 Norvasc - PO 10 mg DAILY NANCY Administration Duloxetine HCl 20 mg 07/31/18 10:00 08/02/18 09:55 Cymbalta - PO 20 mg DAILY NANCY Administration Furosemide 40 mg 07/30/18 10:00 08/02/18 09:55 Lasix - PO 40 mg DAILY NANCY Administration Insulin Aspart 1 vial 07/28/18 07:00 08/02/18 11:37 Novolog Vial Sliding Scale - SQ Not Given ACHS NANCY Protocol Lorazepam 2 mg 07/28/18 11:18 07/30/18 14:34 Ativan Injection - IM 2 mg Q6H PRN Administration AGITATION Lorazepam 1 mg 07/30/18 19:01 08/02/18 09:55 Ativan - PO 1 mg TID PRN Administration ANXIETY Fluticasone/Salmeterol 1 puff 07/28/18 10:00 08/02/18 09:55 Advair 100mcg/50mcg - IH 1 puff BID NANCY Administration Impression 1. ESRD 2. confusion 3. non compliance 4. pancytopenia 5. HTN 6. anemia Plan - HD in am - GI workup in progress - repeat labs in am - epogen for anemia - monitor bp - will follow Dr Waite
--- NOTE | 2018-08-02 16:20 | PN ---
Progress Note (short form) - Note Progress Note: Discussed with resident Underwood: Plan for colonoscopy Friday 07/06, EGD saturday 07/07. Seperate procedures as banding may need to be performed during upper endoscopy. Problem List - Problems (1) Abdominal pain Code(s): R10.9 - UNSPECIFIED ABDOMINAL PAIN (2) Gallbladder cancer Code(s): C23 - MALIGNANT NEOPLASM OF GALLBLADDER (3) Cirrhosis of liver Code(s): K74.60 - UNSPECIFIED CIRRHOSIS OF LIVER (4) Abnormal CT scan Code(s): R93.89 - ABNORMAL FINDINGS ON DX IMAGING OF OT BODY STRUCTURES
[2018-08-02] MEDS ORDERED: INSULIN (NOVOLOG) ASPART 100 UNITS/ML 10ML VIAL ONE (20:57)
[2018-08-02] MEDS: LORazepam 2 MG/ML SDV VIAL IM PRN (21:28)
[2018-08-03] MEDS: INSULIN SLIDING SCALE (NOVOLOG) 1 VIAL SQ SCH ×4 (06:20→21:15)
[2018-08-03 07:37] LABS: HEMATOCRIT 30.2 % (32.4-45.2); HEMOGLOBIN 9.8 GM/dL (10.7-15.3); MCH 27.2 pg (25.7-33.7); MCHC 32.5 g/dl (32.0-36.0); MEAN CELL VOLUME 83.6 fl (80-96); MEAN PLT VOLUME 9.7 fl (7.5-11.1); PLATELET COUNT 52 K/MM3 (134-434); RBC 3.61 M/mm3 (3.60-5.2); RDW 16.3 % (11.6-15.6); WHITE BLOOD COUNT 4.5 K/mm3 (4.0-10.0)
[2018-08-03 08:06] LABS: ANION GAP 11 MMOL/L (8-16); BLOOD UREA NITROGEN 41 mg/dL (7-18); CALCIUM 8.8 mg/dL (8.5-10.1); CHLORIDE 99 mmol/L (98-107); CO2 27 mmol/L (21-32); CREATININE 5.7 mg/dL (0.55-1.3); GLUCOSE,RANDOM 71 mg/dL (74-106); POTASSIUM 4.1 mmol/L (3.5-5.1); SODIUM 137 mmol/L (136-145)
[2018-08-03] MEDS ORDERED: EPOETIN ALFA 2,000 UNIT/1 ML VIAL IVPUSH ONE (08:30)
[2018-08-03] MEDS: amLODIPine BESYLATE 10 MG TABLET (FP) PO SCH (12:34)
[2018-08-03] MEDS: LORazepam 2 MG/ML SDV VIAL IM PRN ×2 (12:34→21:15)
[2018-08-03] MEDS: FUROSEMIDE 40 MG TABLET (FP) PO SCH (12:34)
[2018-08-03] MEDS: FLUTICASONE/SALMETEROL 100 MCG/50 MCG DISKUS IH SCH ×2 (12:34→21:15)
[2018-08-03] MEDS: DULoxetine HCL 20 MG CAPSULE.DR (FP) PO SCH (12:34)
[2018-08-03] MEDS ORDERED: PT OWN MED DRAWER 7, Y5N ONE ×2 (13:41→20:51)
--- NOTE | 2018-08-03 15:16 | PN ---
Progress Note, Physician History of Present Illness: Pt seen and examined at bedside. She is awake and alert. She denies shortness of breath. - Current Medication List Current Medications: Active Medications Amlodipine Besylate (Norvasc -) 10 mg PO DAILY [facility] Last Admin: 08/03/18 12:34 Dose: 10 mg Bisacodyl (Dulcolax -) 20 mg PO ONCE ONE Stop: 08/05/18 13:01 Duloxetine HCl (Cymbalta -) 20 mg PO DAILY [facility] Last Admin: 08/03/18 12:34 Dose: 20 mg Furosemide (Lasix -) 40 mg PO DAILY [facility] Last Admin: 08/03/18 12:34 Dose: 40 mg Sodium Chloride (Normal Saline -) 250 mls @ 3,000 mls/hr IV PRN PRN PRN Reason: Hypotension during Dialysis Stop: 08/03/18 16:12 Insulin Aspart (Novolog Vial Sliding Scale -) 1 vial SQ ACHS [facility]; Protocol Last Admin: 08/03/18 11:09 Dose: Not Given Lorazepam (Ativan Injection -) 2 mg IM Q6H PRN PRN Reason: AGITATION Last Admin: 08/03/18 12:34 Dose: 2 mg Lorazepam (Ativan -) 1 mg PO TID PRN PRN Reason: ANXIETY Last Admin: 08/02/18 17:22 Dose: 1 mg Fluticasone/Salmeterol (Advair 100mcg/50mcg -) 1 puff IH BID [facility] Last Admin: 08/03/18 12:34 Dose: 1 puff - Objective Vital Signs: Vital Signs Temperature 97.9 F 08/03/18 13:44 Pulse Rate 78 08/03/18 13:44 Respiratory Rate 20 08/03/18 13:44 Blood Pressure 116/68 08/03/18 13:44 O2 Sat by Pulse Oximetry (%) 97 08/03/18 09:00 Constitutional: Yes: Calm Eyes: Yes: Conjunctiva Clear Cardiovascular: Yes: S1, S2 Respiratory: Yes: CTA Bilaterally Gastrointestinal: Yes: Soft Genitourinary: Yes: WNL Musculoskeletal: Yes: WNL Edema: No Neurological: Yes: Oriented Psychiatric: Yes: Oriented Labs: CBC, BMP 08/03/18 06:00 08/03/18 06:00 INR, PTT INR 1.02 (0.83-1.09) 07/27/18 19:52 Problem List - Problems (1) ESRD (end stage renal disease) Code(s): N18.6 - END STAGE RENAL DISEASE (2) Missed dialysis Code(s): [id number] - (3) Volume overload Code(s): E87.70 - FLUID OVERLOAD, UNSPECIFIED Assessment/Plan Current Medications Generic Name Dose Route Start Last Admin Trade Name Freq PRN Reason Stop Dose Admin Amlodipine Besylate 10 mg 07/30/18 10:00 08/03/18 12:34 Norvasc - PO 10 mg DAILY NANCY Administration Bisacodyl 20 mg 08/05/18 13:00 Dulcolax - PO 08/05/18 13:01 ONCE ONE Duloxetine HCl 20 mg 07/31/18 10:00 08/03/18 12:34 Cymbalta - PO 20 mg DAILY NANCY Administration Furosemide 40 mg 07/30/18 10:00 08/03/18 12:34 Lasix - PO 40 mg DAILY NANCY Administration Sodium Chloride 250 mls @ 3,000 mls/hr 08/02/18 16:12 Normal Saline - IV 08/03/18 16:12 PRN PRN Hypotension during Dialysis Insulin Aspart 1 vial 07/28/18 07:00 08/03/18 11:09 Novolog Vial Sliding Scale - SQ Not Given ACHS NANCY Protocol Lorazepam 2 mg 07/28/18 11:18 08/03/18 12:34 Ativan Injection - IM 2 mg Q6H PRN Administration AGITATION Lorazepam 1 mg 07/30/18 19:01 08/02/18 17:22 Ativan - PO 1 mg TID PRN Administration ANXIETY Fluticasone/Salmeterol 1 puff 07/28/18 10:00 08/03/18 12:34 Advair 100mcg/50mcg - IH 1 puff BID NANCY Administration Impression 1. ESRD 2. confusion 3. non compliance 4. pancytopenia 5. HTN 6. anemia Plan - HD today - pt going for endoscopy next week - epogen for anemia - monitor bp - will follow Dr Waite
--- NOTE | 2018-08-03 15:19 | PN ---
Physical Exam: SUBJECTIVE: Patient seen and examined at bedside. no acute events overnight- patient continues to complain of abdominal pain and body pains. She does say that her breathing is improving. her mood seemed more sad this morning- she denies any CP/SOB/N/V fevers or chills OBJECTIVE: Vital Signs Period Temp Pulse Resp BP Sys/Jin Pulse Ox Last 24 Hr 97.9 F-98.5 F 66-78 18-20 106-140/63-79 96-97 GENERAL: The patient is awake, alert, in slight distress. EYES: no scleral icterus. NECK: no JVD, no lymphadenopathy LUNGS: CTA B/L; no rales, rhonchi or wheezing HEART: Regular rate and rhythm, S1, S2 without murmur, rub or gallop. ABDOMEN: Soft, diffuse tenderness upon palpation, non-distended EXTREMITIES: 2+ pulses, warm, well-perfused, no edema. PSYCH: Normal mood, normal affect. SKIN: Warm, dry, normal turgor, no rashes or lesions noted Laboratory Results - last 24 hr 08/02/18 08/02/18 08/03/18 06:00 16:13 05:39 WBC RBC Hgb Hct MCV MCH MCHC RDW Plt Count MPV Sodium Potassium Chloride Carbon Dioxide Anion Gap BUN Creatinine Creat Clearance w eGFR POC Glucometer 89 81 Random Glucose Calcium Iron 89 TIBC 208 L Iron Saturation 43 08/03/18 08/03/18 06:00 06:00 WBC 4.5 RBC 3.61 Hgb 9.8 L Hct 30.2 L MCV 83.6 MCH 27.2 MCHC 32.5 RDW 16.3 H Plt Count 52 L MPV 9.7 Sodium 137 Potassium 4.1 Chloride 99 Carbon Dioxide 27 Anion Gap 11 BUN 41 H Creatinine 5.7 H Creat Clearance w eGFR 7.70 POC Glucometer Random Glucose 71 L Calcium 8.8 Iron TIBC Iron Saturation Active Medications Generic Name Dose Route Start Last Admin Trade Name Freq PRN Reason Stop Dose Admin Amlodipine Besylate 10 mg 07/30/18 10:00 08/03/18 12:34 Norvasc - PO 10 mg DAILY NANCY Administration Bisacodyl 20 mg 08/05/18 13:00 Dulcolax - PO 08/05/18 13:01 ONCE ONE Duloxetine HCl 20 mg 07/31/18 10:00 08/03/18 12:34 Cymbalta - PO 20 mg DAILY NANCY Administration Furosemide 40 mg 07/30/18 10:00 08/03/18 12:34 Lasix - PO 40 mg DAILY NANCY Administration Sodium Chloride 250 mls @ 3,000 mls/hr 08/02/18 16:12 Normal Saline - IV 08/03/18 16:12 PRN PRN Hypotension during Dialysis Insulin Aspart 1 vial 07/28/18 07:00 08/03/18 11:09 Novolog Vial Sliding Scale - SQ Not Given ACHS NANCY Protocol Lorazepam 2 mg 07/28/18 11:18 08/03/18 12:34 Ativan Injection - IM 2 mg Q6H PRN Administration AGITATION Lorazepam 1 mg 07/30/18 19:01 08/02/18 17:22 Ativan - PO 1 mg TID PRN Administration ANXIETY Fluticasone/Salmeterol 1 puff 07/28/18 10:00 08/03/18 12:34 Advair 100mcg/50mcg - IH 1 puff BID NANCY Administration ASSESSMENT/PLAN: 58 y/o female with PMH asthma, gallbladder ca, ESRD (dialysis t,th,s), HTN, cirrhosis, cocaine dependence presents to the ED with complaints of shortness of breath, wheezing, chest discomfort and generalized abdominal pain in addition to having missed her dialysis appointment #Depression -mood seems improved -no active plan for SI -spoke with Dr. Sloan, patient might benefit form voluntarily going to [facility], started patient on cymbalta 20mg daily -social workers involved # ESRD patient had HD this am -nephro on board -monitor electrolytes and fluid status #Abdominal Pain patient found to have elevated LFTS on admission in addition to enlarged pancreas -GI consulted; patient going to get colonoscopy and EGD (mon and ) -patient had CT scan of the abdomen which showed some hepatosplenomegaly, cirrhosis and a lobulated liver and an irregularity on the liver -hepatitis serology results back: Hep A Ab + and Hep B core AB + -patient also found to have UTI growing ESBL; ID consulted no treatment #Gallbladder Ca -DR Dumont- patients oncologist consulted and evaluated the patient -suggested a further inpatient workup -LDH/retic/iron studies/ pending r/o possible MDS -suggested an abdominal MRI to further evaluate abdominal discomfort #Troponinemia -patients most recent troponin in 0.14 -likey due to ESRD/demand ischemia -monitor #HTN -will confirm with pharmacy patients home medications #Dyspnea -c/w advair, duonebs and albuterol #Thrombocytopenia likely due to her cirrhosis -monitor for active signs of bleeding F/E/N not on fluids monitor electrolytes renal diet DVT PPX SCDS Problem List - Problems (1) Anxiety Code(s): F41.9 - ANXIETY DISORDER, UNSPECIFIED (2) Asthma Code(s): J45.909 - UNSPECIFIED ASTHMA, UNCOMPLICATED (3) Chronic renal insufficiency Code(s): N18.9 - CHRONIC KIDNEY DISEASE, UNSPECIFIED (4) Missed dialysis Code(s): [id number] - (5) Asthma exacerbation Code(s): J45.901 - UNSPECIFIED ASTHMA WITH (ACUTE) EXACERBATION Qualifiers: Asthma severity: moderate Asthma persistence: persistent Qualified Code(s ): J45.41 - Moderate persistent asthma with (acute) exacerbation Visit type - Emergency Visit Emergency Visit: Yes ED Registration Date: 07/27/18 Care time: The patient presented to the Emergency Department on the above date and was hospitalized for further evaluation of their emergent condition. - New Patient This patient is new to me today: No - Critical Care Critical Care patient: No
[2018-08-03 15:55] VITALS: BMI 31.9
--- NOTE | 2018-08-03 17:00 | PN ---
Progress Note (short form) - Note Progress Note: Discussed plan of colonoscopy monday and EGD monday again with Ms. Houser. Explained that colonoscopy would be for evaluation of abnormal appearing colon noted on her CT scan and durther evaluation of her abdominal pain. I explained that if polyps were found they can be removed as polyps can be precancerous or actually contain cancer. I did explain that she would be at higher risk of bleeding given her low platelets. I explained that upper endoscopy would be to evaluate for varices, a sequela of cirrhosis. I explained that varices can spontaneously bleed and that the bleeding can be life threatening. I explained that under normal circumstances, a beta vaishnavi medication can be given if varices were found to help prevent bleeding. I explained that because cocaine was found in her system, I would not be comfortable recommending that klind of blood pressure medication as she could potentially if cocaine was in the system while she was taking it. I explained that banding would need to be performed as a primary means of preventing variceal bleeding. I explained potential risks of the procedures like but not limited to bleeding, perforation requiring surgery to repair, infection, sedation medication effects all of which could be potentially life threatening. She has agreed to the procedures, writen consent was obtained and witnessed by her nurse. Bowel prep orders in for monday. Platelets prior to colonoscopy. Problem List - Problems (1) Abdominal pain Code(s): R10.9 - UNSPECIFIED ABDOMINAL PAIN (2) Gallbladder cancer Code(s): C23 - MALIGNANT NEOPLASM OF GALLBLADDER (3) Cirrhosis of liver Code(s): K74.60 - UNSPECIFIED CIRRHOSIS OF LIVER (4) Abnormal CT scan Code(s): R93.89 - ABNORMAL FINDINGS ON DX IMAGING OF OTH BODY STRUCTURES
[2018-08-03] MEDS ORDERED: traMADol HCL 50 MG TABLET PO ONE (20:17)
[2018-08-03] MEDS ORDERED: INSULIN (NOVOLOG) ASPART 100 UNITS/ML 10ML VIAL ONE (20:54)
[2018-08-04] MEDS: INSULIN SLIDING SCALE (NOVOLOG) 1 VIAL SQ SCH ×4 (06:24→21:55)
[2018-08-04 08:01] LABS: HEMATOCRIT 34.9 % (32.4-45.2); HEMOGLOBIN 11.4 GM/dL (10.7-15.3); MCH 27.3 pg (25.7-33.7); MCHC 32.7 g/dl (32.0-36.0); MEAN CELL VOLUME 83.4 fl (80-96); MEAN PLT VOLUME 9.3 fl (7.5-11.1); PLATELET COUNT 73 K/MM3 (134-434); RBC 4.19 M/mm3 (3.60-5.2); WHITE BLOOD COUNT 6.9 K/mm3 (4.0-10.0)
[2018-08-04 08:54] LABS: ALK PHOS 244 U/L (45-117); ANION GAP 11 MMOL/L (8-16); BILIRUBIN,TOTAL 0.9 mg/dL (0.2-1); BLOOD UREA NITROGEN 26 mg/dL (7-18); CALCIUM 9.2 mg/dL (8.5-10.1); CHLORIDE 97 mmol/L (98-107); CO2 27 mmol/L (21-32); CREATININE 4.8 mg/dL (0.55-1.3); GLUCOSE,RANDOM 86 mg/dL (74-106); SGOT/AST 68 U/L (15-37); SGPT/ALT 39 U/L (13-61); SODIUM 135 mmol/L (136-145); TOT PROT 8.5 g/dl (6.4-8.2)
[2018-08-04] MEDS: FLUTICASONE/SALMETEROL 100 MCG/50 MCG DISKUS IH SCH ×2 (11:21→21:54)
[2018-08-04] MEDS: DULoxetine HCL 20 MG CAPSULE.DR (FP) PO SCH (11:21)
--- NOTE | 2018-08-04 11:31 | PN ---
Progress Note (short form) - Note Progress Note: Subjective:patient is laying down in her bed, her speech was slow, she was barely talking to the Dr, her complaints were limited to pain in the abdomen she stated she is doing well Objective: AAOx3 s1 and S2 RRR abdomen tender to touch in the lower left quadrant lungs CTA good air entry +1 pitting edema PERRLA moist mucous membrane Assessment and plan 58 y/o female with PMH asthma, gallbladder ca, ESRD (dialysis t,,s), HTN, cirrhosis, cocaine dependence presents to the ED with complaints of shortness of breath, wheezing, chest discomfort and generalized abdominal pain in addition to having missed her dialysis appointment #Depression -mood seems improved -no active plan for SI -spoke with Dr. Sloan, patient might benefit form [facility], started patient on cymbalta 20mg daily -social workers involved # ESRD on dialysis -monitor electrolyte and fluid status - last dialysis was monday next is monday #Abdominal Pain patient found to have elevated LFTS on admission in addition to enlarged pancreas -GI consulted; patient going to get colonoscopy and EGD (mon and ) hepatosplenomegaly, cirrhosis and a lobulated liver and an irregularity on the liver -hepatitis serology results back: Hep A Ab + and Hep B core AB + #Gallbladder Ca -LDH/retic/iron studies/ pending r/o possible MDS -suggested an abdominal MRI to further evaluate abdominal discomfort Elevated troponin unlikely due ACS -patients most recent troponin in 0.14 -likey due to ESRD/demand ischemia -monitor #Dyspnea -c/w advair, duonebs and albuterol #Thrombocytopenia likely due to her cirrhosis -monitor for active signs of bleeding F/E/N not on fluids monitor electrolytes renal diet
[2018-08-04] MEDS: amLODIPine BESYLATE 10 MG TABLET (FP) PO SCH (11:35)
[2018-08-04] MEDS: LORazepam 1 MG TABLET PO PRN (11:35)
[2018-08-04] MEDS: FUROSEMIDE 40 MG TABLET (FP) PO SCH (11:35)
[2018-08-04 14:10] LABS: CARCINOEMBRYONIC ANTIGEN 4.5 ng/mL (0.0-4.7)
[2018-08-04] MEDS: LORazepam 2 MG/ML SDV VIAL IM PRN (17:33)
--- NOTE | 2018-08-04 19:18 | PN ---
Progress Note, Physician History of Present Illness: Pt seen and examined at bedside. She is awake and alert. She denies shortness of breath. - Current Medication List Current Medications: Active Medications Amlodipine Besylate (Norvasc -) 10 mg PO DAILY [facility] Last Admin: 08/04/18 11:35 Dose: 10 mg Bisacodyl (Dulcolax -) 20 mg PO ONCE ONE Stop: 08/05/18 13:01 Duloxetine HCl (Cymbalta -) 20 mg PO DAILY [facility] Last Admin: 08/04/18 11:21 Dose: 20 mg Furosemide (Lasix -) 40 mg PO DAILY [facility] Last Admin: 08/04/18 11:35 Dose: 40 mg Insulin Aspart (Novolog Vial Sliding Scale -) 1 vial SQ ACHS [facility]; Protocol Last Admin: 08/04/18 13:36 Dose: Not Given Lorazepam (Ativan Injection -) 2 mg IM Q6H PRN PRN Reason: AGITATION Last Admin: 08/04/18 17:33 Dose: 2 mg Lorazepam (Ativan -) 1 mg PO TID PRN PRN Reason: ANXIETY Last Admin: 08/04/18 11:35 Dose: 1 mg Fluticasone/Salmeterol (Advair 100mcg/50mcg -) 1 puff IH BID [facility] Last Admin: 08/04/18 11:21 Dose: 1 puff - Objective Vital Signs: Vital Signs Temperature 98.5 F 08/04/18 17:00 Pulse Rate 79 08/04/18 17:00 Respiratory Rate 18 08/04/18 17:00 Blood Pressure 112/62 08/04/18 17:00 O2 Sat by Pulse Oximetry (%) 98 08/03/18 21:00 Constitutional: Yes: Calm Eyes: Yes: Conjunctiva Clear HENT: Yes: Atraumatic Neck: Yes: Supple Cardiovascular: Yes: S1, S2 Respiratory: Yes: CTA Bilaterally Gastrointestinal: Yes: Normal Bowel Sounds, Soft Genitourinary: Yes: WNL Musculoskeletal: Yes: WNL Edema: No Neurological: Yes: Oriented Psychiatric: Yes: Oriented Labs: CBC, BMP 08/04/18 06:50 08/04/18 06:50 INR, PTT INR 1.02 (0.83-1.09) 07/27/18 19:52 Problem List - Problems (1) ESRD (end stage renal disease) Code(s): N18.6 - END STAGE RENAL DISEASE (2) Missed dialysis Code(s): [id number] - (3) Volume overload Code(s): E87.70 - FLUID OVERLOAD, UNSPECIFIED Assessment/Plan Current Medications Generic Name Dose Route Start Last Admin Trade Name Freq PRN Reason Stop Dose Admin Amlodipine Besylate 10 mg 07/30/18 10:00 08/04/18 11:35 Norvasc - PO 10 mg DAILY NANCY Administration Bisacodyl 20 mg 08/05/18 13:00 Dulcolax - PO 08/05/18 13:01 ONCE ONE Duloxetine HCl 20 mg 07/31/18 10:00 08/04/18 11:21 Cymbalta - PO 20 mg DAILY NANCY Administration Furosemide 40 mg 07/30/18 10:00 08/04/18 11:35 Lasix - PO 40 mg DAILY NANCY Administration Insulin Aspart 1 vial 07/28/18 07:00 08/04/18 13:36 Novolog Vial Sliding Scale - SQ Not Given ACHS NANCY Protocol Lorazepam 2 mg 07/28/18 11:18 08/04/18 17:33 Ativan Injection - IM 2 mg Q6H PRN Administration AGITATION Lorazepam 1 mg 07/30/18 19:01 08/04/18 11:35 Ativan - PO 1 mg TID PRN Administration ANXIETY Fluticasone/Salmeterol 1 puff 07/28/18 10:00 08/04/18 11:21 Advair 100mcg/50mcg - IH 1 puff BID NANCY Administration Impression 1. ESRD 2. confusion 3. non compliance 4. pancytopenia 5. HTN 6. anemia Plan - pt tolerated HD yesterday - next HD on Monday - pt going for endoscopy next week - epogen for anemia - monitor bp - will follow Dr Waite
[2018-08-04] MEDS ORDERED: INSULIN (NOVOLOG) ASPART 100 UNITS/ML 10ML VIAL ONE (19:52)
[2018-08-05] MEDS ORDERED: ALBUTEROL SO4 2.5/IPRATROPIUM 0.5 INH SOL 3 ML VIAL.NEB. NEB ONE (04:44)
[2018-08-05] MEDS: INSULIN SLIDING SCALE (NOVOLOG) 1 VIAL SQ SCH ×3 (06:38→21:57)
--- NOTE | 2018-08-05 11:19 | PN ---
Progress Note (short form) - Note Progress Note: Subjective:patient is laying down in her bed, her speech was slow, she was barely talking to the Dr, her complaints were limited to pain in the abdomen she stated she is doing well. she vomited once overnight yellowish/green color but she never told the nurse about it Objective: AAOx3 s1 and S2 RRR abdomen tender to touch in the lower left quadrant lungs CTA good air entry +1 pitting edema PERRLA moist mucous membrane Assessment and plan 58 y/o female with PMH asthma, gallbladder ca, ESRD (dialysis t,,s), HTN, cirrhosis, cocaine dependence presents to the ED with complaints of shortness of breath, wheezing, chest discomfort and generalized abdominal pain in addition to having missed her dialysis appointment #Depression -mood seems improved -no active plan for SI -spoke with Dr. Sloan, patient might benefit form [facility], started patient on cymbalta 20mg daily -social workers involved # ESRD on dialysis -monitor electrolyte and fluid status - last dialysis was monday next is monday #Abdominal Pain patient found to have elevated LFTS on admission in addition to enlarged pancreas -GI consulted; patient going to get colonoscopy and EGD (mon and ) hepatosplenomegaly, cirrhosis and a lobulated liver and an irregularity on the liver -hepatitis serology results back: Hep A Ab + and Hep B core AB + #Gallbladder Ca -LDH/retic/iron studies/ pending r/o possible MDS -suggested an abdominal MRI to further evaluate abdominal discomfort Elevated troponin unlikely due ACS -patients most recent troponin in 0.14 -likey due to ESRD/demand ischemia -monitor #Dyspnea -c/w advair, duonebs and albuterol #Thrombocytopenia likely due to her cirrhosis -monitor for active signs of bleeding F/E/N not on fluids monitor electrolytes renal diet
[2018-08-05] MEDS: amLODIPine BESYLATE 10 MG TABLET (FP) PO SCH (11:29)
[2018-08-05] MEDS: FLUTICASONE/SALMETEROL 100 MCG/50 MCG DISKUS IH SCH ×2 (11:29→21:57)
[2018-08-05] MEDS: FUROSEMIDE 40 MG TABLET (FP) PO SCH (11:29)
[2018-08-05] MEDS: DULoxetine HCL 20 MG CAPSULE.DR (FP) PO SCH (11:29)
[2018-08-05] MEDS ORDERED: BISACODYL 5 MG TABLET.DR (FP) PO ONE ×2 (13:00→17:00)
[2018-08-05] MEDS ORDERED: PEG3350/SOD SULF,BICARB,CL/KCL 4,000 ML SOLN.RECON PO ONE (14:00)
[2018-08-05] MEDS ORDERED: SODIUM CHLORIDE 250 ML IV PRN (14:58)
--- NOTE | 2018-08-05 14:58 | PN ---
Progress Note, Physician History of Present Illness: Pt seen and examined at bedside. She is awake and alert. She denies shortness of breath. - Current Medication List Current Medications: Active Medications Amlodipine Besylate (Norvasc -) 10 mg PO DAILY [facility] Last Admin: 08/05/18 11:29 Dose: 10 mg Duloxetine HCl (Cymbalta -) 20 mg PO DAILY [facility] Last Admin: 08/05/18 11:29 Dose: 20 mg Furosemide (Lasix -) 40 mg PO DAILY [facility] Last Admin: 08/05/18 11:29 Dose: 40 mg Insulin Aspart (Novolog Vial Sliding Scale -) 1 vial SQ ACHS [facility]; Protocol Last Admin: 08/05/18 06:38 Dose: Not Given Fluticasone/Salmeterol (Advair 100mcg/50mcg -) 1 puff IH BID [facility] Last Admin: 08/05/18 11:29 Dose: 1 puff - Objective Vital Signs: Vital Signs Temperature 98.4 F 08/05/18 13:25 Pulse Rate 71 08/05/18 13:25 Respiratory Rate 18 08/05/18 13:25 Blood Pressure 102/55 L 08/05/18 13:25 O2 Sat by Pulse Oximetry (%) 98 08/03/18 21:00 Constitutional: Yes: Calm Eyes: Yes: Conjunctiva Clear HENT: Yes: Atraumatic Cardiovascular: Yes: S1, S2 Respiratory: Yes: CTA Bilaterally Gastrointestinal: Yes: Soft Genitourinary: Yes: WNL Musculoskeletal: Yes: WNL Edema: No Neurological: Yes: Oriented Psychiatric: Yes: Oriented Labs: CBC, BMP 08/04/18 06:50 08/04/18 06:50 INR, PTT INR 1.02 (0.83-1.09) 07/27/18 19:52 Problem List - Problems (1) ESRD (end stage renal disease) Code(s): N18.6 - END STAGE RENAL DISEASE (2) Missed dialysis Code(s): [id number] - (3) Volume overload Code(s): E87.70 - FLUID OVERLOAD, UNSPECIFIED Assessment/Plan Current Medications Generic Name Dose Route Start Last Admin Trade Name Freq PRN Reason Stop Dose Admin Amlodipine Besylate 10 mg 07/30/18 10:00 08/05/18 11:29 Norvasc - PO 10 mg DAILY NANCY Administration Duloxetine HCl 20 mg 07/31/18 10:00 08/05/18 11:29 Cymbalta - PO 20 mg DAILY NANCY Administration Furosemide 40 mg 07/30/18 10:00 08/05/18 11:29 Lasix - PO 40 mg DAILY NANCY Administration Insulin Aspart 1 vial 07/28/18 07:00 08/05/18 06:38 Novolog Vial Sliding Scale - SQ Not Given ACHS NANCY Protocol Fluticasone/Salmeterol 1 puff 07/28/18 10:00 08/05/18 11:29 Advair 100mcg/50mcg - IH 1 puff BID NANCY Administration Impression 1. ESRD 2. confusion 3. non compliance 4. pancytopenia 5. HTN 6. anemia Plan - HD tomorrow - orders written - pt for endoscopy - epogen for anemia - monitor bp - will follow Dr Waite
[2018-08-05] MEDS ORDERED: PT OWN MED DRAWER 7, Y5N ONE (21:24)
[2018-08-06 06:16] LABS: BASO % 1.4 % (0-2.0); EOS % 6.7 % (0-4.5); HEMATOCRIT 31.2 % (32.4-45.2); HEMOGLOBIN 10.2 GM/dL (10.7-15.3); LYMPH % 24.7 % (8-40); MCH 27.2 pg (25.7-33.7); MCHC 32.8 g/dl (32.0-36.0); MEAN CELL VOLUME 83.1 fl (80-96); MEAN PLT VOLUME 9.2 fl (7.5-11.1); MONO % 8.5 % (3.8-10.2); NEUT % 58.7 % (42.8-82.8); PLATELET COUNT 57 K/MM3 (134-434); RBC 3.76 M/mm3 (3.60-5.2); RDW 16.5 % (11.6-15.6); WHITE BLOOD COUNT 4.9 K/mm3 (4.0-10.0)
[2018-08-06] MEDS: INSULIN SLIDING SCALE (NOVOLOG) 1 VIAL SQ SCH ×4 (06:35→22:50)
[2018-08-06 06:54] LABS: ALBUMIN 2.9 g/dl (3.4-5.0); ALK PHOS 205 U/L (45-117); ANION GAP 15 MMOL/L (8-16); BILIRUBIN,DIRECT 0.3 mg/dL (0.0-0.2); BILIRUBIN,TOTAL 0.8 mg/dL (0.2-1); BLOOD UREA NITROGEN 53 mg/dL (7-18); CALCIUM 8.7 mg/dL (8.5-10.1); CHLORIDE 94 mmol/L (98-107); CO2 26 mmol/L (21-32); CREATININE 7.3 mg/dL (0.55-1.3); GLUCOSE,RANDOM 71 mg/dL (74-106); POTASSIUM 3.9 mmol/L (3.5-5.1); SGOT/AST 52 U/L (15-37); SGPT/ALT 34 U/L (13-61); SODIUM 135 mmol/L (136-145); TOT PROT 7.5 g/dl (6.4-8.2)
--- NOTE | 2018-08-06 08:41 | PN ---
Physical Exam: SUBJECTIVE: Patient seen and examined at bedside . no acute events overnight- patient is currently prepping for her colonoscopy this afternoon. she states her breathing is a little better but she is still having abdominal pain, her mood seems slightly more improved. she denies any CP/N/V OBJECTIVE: Vital Signs Period Temp Pulse Resp BP Sys/Jin Pulse Ox Last 24 Hr 97.6 F-98.7 F 70-81 18-20 102-130/53-96 95 GENERAL: The patient is awake, alert, and fully oriented, in no acute distress. EYES:no scleral icterus NECK: no JVD, no lymphadenopathy LUNGS:CTA B/L; no rales, rhonchi or wheezing HEART: Regular rate and rhythm, S1, S2 without murmur, rub or gallop. ABDOMEN: Soft, tener, nondistended, normoactive bowel sounds, no guarding, no rebound, no hepatosplenomegaly, no masses. EXTREMITIES: 2+ pulses, warm, well-perfused, no edema. PSYCH: Normal mood, normal affect. SKIN: Warm, dry, normal turgor, no rashes or lesions noted Laboratory Results - last 24 hr 08/05/18 08/06/18 08/06/18 21:56 06:00 06:00 WBC 4.9 RBC 3.76 Hgb 10.2 L Hct 31.2 L MCV 83.1 MCH 27.2 MCHC 32.8 RDW 16.5 H Plt Count 57 L D MPV 9.2 Absolute Neuts (auto) 2.9 Neutrophils % 58.7 Lymphocytes % 24.7 Monocytes % 8.5 Eosinophils % 6.7 H D Basophils % 1.4 Nucleated RBC % 0 Sodium 135 L Potassium 3.9 Chloride 94 L Carbon Dioxide 26 Anion Gap 15 BUN 53 H Creatinine 7.3 H Creat Clearance w eGFR 5.78 POC Glucometer 95 Random Glucose 71 L Calcium 8.7 Total Bilirubin 0.8 Direct Bilirubin 0.3 H AST 52 H ALT 34 Alkaline Phosphatase 205 H Total Protein 7.5 Albumin 2.9 L 08/06/18 08/06/18 06:32 07:52 WBC RBC Hgb Hct MCV MCH MCHC RDW Plt Count MPV Absolute Neuts (auto) Neutrophils % Lymphocytes % Monocytes % Eosinophils % Basophils % Nucleated RBC % Sodium Potassium Chloride Carbon Dioxide Anion Gap BUN Creatinine Creat Clearance w eGFR POC Glucometer 87 93 Random Glucose Calcium Total Bilirubin Direct Bilirubin AST ALT Alkaline Phosphatase Total Protein Albumin Active Medications Generic Name Dose Route Start Last Admin Trade Name Freq PRN Reason Stop Dose Admin Amlodipine Besylate 10 mg 07/30/18 10:00 08/05/18 11:29 Norvasc - PO 10 mg DAILY NANCY Administration Duloxetine HCl 20 mg 07/31/18 10:00 08/05/18 11:29 Cymbalta - PO 20 mg DAILY NANCY Administration Furosemide 40 mg 07/30/18 10:00 08/05/18 11:29 Lasix - PO 40 mg DAILY NANCY Administration Sodium Chloride 250 mls @ 3,000 mls/hr 08/05/18 14:58 Normal Saline - IV 08/06/18 14:58 PRN PRN Hypotension during Dialysis Insulin Aspart 1 vial 07/28/18 07:00 08/06/18 06:35 Novolog Vial Sliding Scale - SQ Not Given ACHS NANCY Protocol Fluticasone/Salmeterol 1 puff 07/28/18 10:00 08/05/18 21:57 Advair 100mcg/50mcg - IH 1 puff BID NANCY Administration ASSESSMENT/PLAN: 58 y/o female with PMH asthma, gallbladder ca, ESRD (dialysis t,th,s), HTN, cirrhosis, cocaine dependence presents to the ED with complaints of shortness of breath, wheezing, chest discomfort and generalized abdominal pain in addition to having missed her dialysis appointment #Depression -mood seems improved -no active plan for SI -spoke with Dr. Sloan, patient might benefit form voluntarily going to inaptient psych, started patient on cymbalta 20mg daily -social workers involved -will address the issue of inpatient psych again with patient # ESRD patient going for HD today -nephro on board -monitor electrolytes and fluid status #Abdominal Pain patient found to have elevated LFTS on admission in addition to enlarged pancreas -GI consulted; patient going to get colonoscopy today and EGD tomorrow -patient had CT scan of the abdomen which showed some hepatosplenomegaly, cirrhosis and a lobulated liver and an irregularity on the liver -hepatitis serology results back: Hep A Ab + and Hep B core AB + -patient also found to have UTI growing ESBL; ID consulted no treatment #Gallbladder Ca -DR Dumont- patients oncologist consulted and evaluated the patient -suggested a further inpatient workup -LDH/retic/iron studies/ pending r/o possible MDS -suggested an abdominal MRI to further evaluate abdominal discomfort #Troponinemia -patients most recent troponin in 0.14 -likey due to ESRD/demand ischemia -monitor #HTN -amlodipine 10 daily #Dyspnea -c/w advair, duonebs and albuterol #Thrombocytopenia likely due to her cirrhosis -monitor for active signs of bleeding F/E/N not on fluids monitor electrolytes renal diet DVT PPX SCDS Problem List - Problems (1) Anxiety Code(s): F41.9 - ANXIETY DISORDER, UNSPECIFIED (2) Asthma Code(s): J45.909 - UNSPECIFIED ASTHMA, UNCOMPLICATED (3) Chronic renal insufficiency Code(s): N18.9 - CHRONIC KIDNEY DISEASE, UNSPECIFIED (4) Missed dialysis Code(s): KXL5199 - (5) Asthma exacerbation Code(s): J45.901 - UNSPECIFIED ASTHMA WITH (ACUTE) EXACERBATION Qualifiers: Asthma severity: moderate Asthma persistence: persistent Qualified Code(s ): J45.41 - Moderate persistent asthma with (acute) exacerbation Visit type - Emergency Visit Emergency Visit: Yes ED Registration Date: 07/27/18 Care time: The patient presented to the Emergency Department on the above date and was hospitalized for further evaluation of their emergent condition. - New Patient This patient is new to me today: No - Critical Care Critical Care patient: No
[2018-08-06] MEDS: FUROSEMIDE 40 MG TABLET (FP) PO SCH (10:11)
[2018-08-06] MEDS: FLUTICASONE/SALMETEROL 100 MCG/50 MCG DISKUS IH SCH ×2 (10:11→22:50)
[2018-08-06] MEDS: DULoxetine HCL 20 MG CAPSULE.DR (FP) PO SCH (10:11)
[2018-08-06] MEDS: amLODIPine BESYLATE 10 MG TABLET (FP) PO SCH (10:11)
--- NOTE | 2018-08-06 11:35 | PN ---
Progress Note, Physician History of Present Illness: Pt seen and examined at bedside. She is awake and alert. She is tolerating HD today. - Current Medication List Current Medications: Active Medications Amlodipine Besylate (Norvasc -) 10 mg PO DAILY [facility] Last Admin: 08/06/18 10:11 Dose: Not Given Duloxetine HCl (Cymbalta -) 20 mg PO DAILY [facility] Last Admin: 08/06/18 10:11 Dose: Not Given Furosemide (Lasix -) 40 mg PO DAILY [facility] Last Admin: 08/06/18 10:11 Dose: Not Given Sodium Chloride (Normal Saline -) 250 mls @ 3,000 mls/hr IV PRN PRN PRN Reason: Hypotension during Dialysis Stop: 08/06/18 14:58 Insulin Aspart (Novolog Vial Sliding Scale -) 1 vial SQ ACHS [facility]; Protocol Last Admin: 08/06/18 06:35 Dose: Not Given Fluticasone/Salmeterol (Advair 100mcg/50mcg -) 1 puff IH BID [facility] Last Admin: 08/06/18 10:11 Dose: Not Given - Objective Vital Signs: Vital Signs Temperature 98 F 08/06/18 08:10 Pulse Rate 68 08/06/18 10:45 Respiratory Rate 18 08/06/18 10:45 Blood Pressure 119/77 08/06/18 10:45 O2 Sat by Pulse Oximetry (%) 95 08/05/18 21:00 Constitutional: Yes: Calm Eyes: Yes: Conjunctiva Clear HENT: Yes: Atraumatic Neck: Yes: Supple Cardiovascular: Yes: S1, S2 Respiratory: Yes: CTA Bilaterally Gastrointestinal: Yes: Normal Bowel Sounds, Soft Genitourinary: Yes: WNL Musculoskeletal: Yes: WNL Edema: No Neurological: Yes: Oriented Psychiatric: Yes: Oriented Labs: CBC, BMP 08/06/18 06:00 08/06/18 06:00 INR, PTT INR 1.02 (0.83-1.09) 07/27/18 19:52 Problem List - Problems (1) ESRD (end stage renal disease) Code(s): N18.6 - END STAGE RENAL DISEASE (2) Missed dialysis Code(s): [id number] - (3) Volume overload Code(s): E87.70 - FLUID OVERLOAD, UNSPECIFIED Assessment/Plan Current Medications Generic Name Dose Route Start Last Admin Trade Name Freq PRN Reason Stop Dose Admin Amlodipine Besylate 10 mg 07/30/18 10:00 08/06/18 10:11 Norvasc - PO Not Given DAILY NANCY Duloxetine HCl 20 mg 07/31/18 10:00 08/06/18 10:11 Cymbalta - PO Not Given DAILY NANCY Furosemide 40 mg 07/30/18 10:00 08/06/18 10:11 Lasix - PO Not Given DAILY NANCY Sodium Chloride 250 mls @ 3,000 mls/hr 08/05/18 14:58 Normal Saline - IV 08/06/18 14:58 PRN PRN Hypotension during Dialysis Insulin Aspart 1 vial 07/28/18 07:00 08/06/18 06:35 Novolog Vial Sliding Scale - SQ Not Given ACHS NANCY Protocol Fluticasone/Salmeterol 1 puff 07/28/18 10:00 08/06/18 10:11 Advair 100mcg/50mcg - IH Not Given BID NANCY Impression 1. ESRD 2. confusion 3. non compliance 4. pancytopenia 5. HTN 6. anemia Plan - HD today - pt going for endoscopy - GI workup is in progress - epogen for anemia - monitor bp - will follow Dr Waite
--- NOTE | 2018-08-06 14:27 | PN ---
Teaching Attending Note Name of Resident: Wanda Underwood ATTENDING PHYSICIAN STATEMENT I saw and evaluated the patient. I reviewed the resident's note and discussed the case with the resident. I agree with the resident's findings and plan as documented. SUBJECTIVE:continues to have diffuse abdominal pain however is not exacerbated by eating. unable to specify any alleviating/aggrevating factors. denies Cp, SOB , fever, chills, N/V/C/D OBJECTIVE: Last Vital Signs Temp Pulse Resp BP Pulse Ox 98 F 80 18 120/72 94 L 08/06/18 08:10 08/06/18 12:01 08/06/18 12:01 08/06/18 12:01 08/06/18 09:00 General NAD, tearful on exam Abdomen diffusely tender no rebound or guarding.+ BS ASSESSMENT AND PLAN: 58 y/o AAF with PMH ESRD on HD (TTS), cirrhosis, GB malignancy s/p resection and chemo, HTN and conitnuous cocaine depedence presenting with missed dialysis and full body pains with concentration on her abdomen and with chest discomfort. 1. Abdominal pain-non specific and diffuse. CT showing R colon irregularity and NPO for colonoscopy today. plan to give 1 unit of platelets prior to procedure. GI on board 2. +UCx-evaluated by ID and since asymptomatic will not treat at this time 3. Tropinemia- flat trend, in setting of ESRD with no CP. no signs of acs. 4, Cirrhosis- stable. no signs of decompensation. plan for EGD tomorrow to evaluate for varices. will need routing monitoring AFP and u/s [id number]/. on lasix 5. Thrombocytopnia- due to cirrhosis. no signs of bleeding. plan to receive 1 unit platelets prior to procedure prophylatically 6. Continuous cocaine use-counselled on risks assoc with cocaine use. interested in inpatient rehab when medically optimized 7. ESRD on HD-currently getting HD. tolerating well. resume normal HD schedule nephro on board 8. HTN- controlled. cont home medications. 9. DM- on levemir at home. has been on hold nad not requiring coverage at this time. will check A1c. BGM 10. Depression- no signs of suicidal thoughts. started on cymbalta. pt might be interested in involuntary placement to psych center. will need psych follow up outpatient. 11. GB malignancy- s/p resection and chemo. outpatient follow up 12. DVT ppx- SCD/EAM. would hold pharmacologic anticoagulation in setting of thrombocytopenia 13, possible d/c tomorrow pending results of procedure. informed patient of possible discharge. plan to return to intermediate.
--- NOTE | 2018-08-06 15:12 | PN ---
Progress Note (short form) - Note Progress Note: colonoscopy complete. report placed in procedural section of physical chart and to be scanned into [employer] Problem List - Problems (1) Abdominal pain Code(s): R10.9 - UNSPECIFIED ABDOMINAL PAIN (2) Gallbladder cancer Code(s): C23 - MALIGNANT NEOPLASM OF GALLBLADDER (3) Cirrhosis of liver Code(s): K74.60 - UNSPECIFIED CIRRHOSIS OF LIVER (4) Abnormal CT scan Code(s): R93.89 - ABNORMAL FINDINGS ON DX IMAGING OF OTH BODY STRUCTURES
[2018-08-06] MEDS ORDERED: ACETAMINOPHEN 325 MG TABLET (FP) PO ONE (18:21)
[2018-08-07 06:48] LABS: BASO % 1.1 % (0-2.0); EOS % 5.6 % (0-4.5); HEMATOCRIT 32.3 % (32.4-45.2); HEMOGLOBIN 10.5 GM/dL (10.7-15.3); LYMPH % 20.4 % (8-40); MCH 27.2 pg (25.7-33.7); MCHC 32.4 g/dl (32.0-36.0); MEAN PLT VOLUME 10.1 fl (7.5-11.1); MONO % 10.2 % (3.8-10.2); NEUT % 62.7 % (42.8-82.8); PLATELET COUNT 54 K/MM3 (134-434); RBC 3.84 M/mm3 (3.60-5.2); RDW 16.2 % (11.6-15.6); WHITE BLOOD COUNT 4.3 K/mm3 (4.0-10.0)
[2018-08-07] MEDS: INSULIN SLIDING SCALE (NOVOLOG) 1 VIAL SQ SCH ×2 (07:00→11:34)
[2018-08-07 07:01] LABS: INR 1.13 (0.83-1.09); PROTHROMBIN TIME (PATIENT) 13.4 SEC (9.7-13.0)
[2018-08-07 07:07] LABS: ANION GAP 8 MMOL/L (8-16); BLOOD UREA NITROGEN 28 mg/dL (7-18); CALCIUM 9.4 mg/dL (8.5-10.1); CHLORIDE 101 mmol/L (98-107); CO2 30 mmol/L (21-32); CREATININE 4.8 mg/dL (0.55-1.3); GLUCOSE,RANDOM 81 mg/dL (74-106); MAGNESIUM 2.2 mg/dL (1.8-2.4); PHOSPHOROUS 6.2 mg/dL (2.5-4.9); POTASSIUM 3.3 mmol/L (3.5-5.1); SODIUM 139 mmol/L (136-145)
[2018-08-07] MEDS ORDERED: PT OWN MED DRAWER 7, Y5N ONE ×2 (08:31→09:05)
--- NOTE | 2018-08-07 10:14 | PN ---
Progress Note (short form) - Note Progress Note: EGD complete. Report left in procedural section of physical chart and to be scanned into [employer]. Problem List - Problems (1) Abdominal pain Code(s): R10.9 - UNSPECIFIED ABDOMINAL PAIN (2) Gallbladder cancer Code(s): C23 - MALIGNANT NEOPLASM OF GALLBLADDER (3) Cirrhosis of liver Code(s): K74.60 - UNSPECIFIED CIRRHOSIS OF LIVER (4) Abnormal CT scan Code(s): R93.89 - ABNORMAL FINDINGS ON DX IMAGING OF OT BODY STRUCTURES
[2018-08-07] MEDS: amLODIPine BESYLATE 10 MG TABLET (FP) PO SCH (10:51)
[2018-08-07] MEDS: FUROSEMIDE 40 MG TABLET (FP) PO SCH (10:52)
[2018-08-07] MEDS: DULoxetine HCL 20 MG CAPSULE.DR (FP) PO SCH (10:52)
[2018-08-07] MEDS ORDERED: PANTOPRAZOLE 20 MG TABLET (FP) PO SCH (11:00)
[2018-08-07] MEDS ORDERED: POTASSIUM CHLORIDE TABS 20 MEQ TABLET.ER (FP) PO ONE (11:00)
[2018-08-07] MEDS: FLUTICASONE/SALMETEROL 100 MCG/50 MCG DISKUS IH SCH (11:21)
--- NOTE | 2018-08-07 13:48 | PN ---
Teaching Attending Note Name of Resident: Wanda Underwood ATTENDING PHYSICIAN STATEMENT I saw and evaluated the patient. I reviewed the resident's note and discussed the case with the resident. I agree with the resident's findings and plan as documented. SUBJECTIVE:states she feels much better today. a little gassy from colonosocpy yesterday. tolerating diet. denies Cp, SOB, fever, chills, N/V/C/D OBJECTIVE: Last Vital Signs Temp Pulse Resp BP Pulse Ox 97.9 F 75 18 125/66 97 08/07/18 11:02 08/07/18 11:02 08/07/18 11:02 08/07/18 11:02 08/07/18 11:02 General NAD, Abdomen soft NT/ND no rebound or guarding.+ BS ASSESSMENT AND PLAN: 58 y/o AAF with PMH ESRD on HD (TTS), cirrhosis, GB malignancy s/p resection and chemo, HTN and conitnuous cocaine depedence presenting with missed dialysis and full body pains with concentration on her abdomen and with chest discomfort. 1. Abdominal pain-non specific and diffuse. CT showing R colon irregularity colonoscopy done showing several polyps which were removed. GI on board 2. +UCx-evaluated by ID and since asymptomatic will not treat at this time 3. Tropinemia- flat trend, in setting of ESRD with no CP. no signs of acs. 4, Cirrhosis- stable. no signs of decompensation. s/p EGD today showing small esophageal varices. bx taken. counselled on diet and lifestyle modifications. avoid NSAIDS. will need routine surveillance for EGD. will need routing monitoring AFP and u/s [id number]/. on lasix 5. Thrombocytopnia- due to cirrhosis. s/p 1 unit platelets yesterday prophylactic for proceudre. no signs of bleeding. 6. Continuous cocaine use-counselled on risks assoc with cocaine use. plans on seeking out outpatient programs and will eventually do inpatient rehab once she stabilizes her life. 7. ESRD on HD-currently getting HD. tolerating well. resume normal HD schedule nephro on board 8. HTN- controlled. cont home medications. 9. DM- a1c 5.5 has not required any coverage here. advised to document sugars over next week and bring to PMD who will evaluate if treatment is required. hold insulin at this time and just diet control. 10. Depression- no signs of suicidal thoughts. started on cymbalta. will fu with therapist as outpaient. 11. GB malignancy- s/p resection and chemo. outpatient follow up 12. DVT ppx- SCD/EAM. would hold pharmacologic anticoagulation in setting of thrombocytopenia 13, d/c to DSS today. discussed in detail needs for compliance, follow up and sobriety. verbalized understanding and agreement with plan
[2018-08-07 14:17] VITALS: BP 120/75; PULSE 81; TEMP 98
--- NOTE | 2018-08-07 15:36 | DS ---
Physical Exam: SUBJECTIVE: Patient seen and examined OBJECTIVE: Vital Signs Period Temp Pulse Resp BP Sys/Jin Pulse Ox Last 24 Hr 97.6 F-98.9 F 68-86 17-20 106-135/61-85 94-100 PHYSICAL EXAM GENERAL: The patient is awake, alert, and fully oriented, in no acute distress. HEAD: Normal with no signs of trauma. EYES: PERRL, extraocular movements intact, sclera anicteric, conjunctiva clear. ENT: Ears normal, nares patent, oropharynx clear without exudates, moist mucous membranes. NECK: Trachea midline, full range of motion, supple. LUNGS: Breath sounds equal, clear to auscultation bilaterally, no wheezes, no crackles, no accessory muscle use. HEART: Regular rate and rhythm, S1, S2 without murmur, rub or gallop. ABDOMEN: Soft, nontender, nondistended, normoactive bowel sounds, no guarding, no rebound, no hepatosplenomegaly, no masses. EXTREMITIES: 2+ pulses, warm, well-perfused, no edema. NEUROLOGICAL: Cranial nerves II through XII grossly intact. Normal speech, gait not observed. PSYCH: Normal mood, normal affect. SKIN: Warm, dry, normal turgor, no rashes or lesions noted. LABS Laboratory Results - last 24 hr 08/06/18 08/07/18 08/07/18 16:59 06:00 06:00 WBC 4.3 RBC 3.84 Hgb 10.5 L Hct 32.3 L MCV 84.0 MCH 27.2 MCHC 32.4 RDW 16.2 H Plt Count 54 L MPV 10.1 Absolute Neuts (auto) 2.7 Neutrophils % 62.7 Lymphocytes % 20.4 Monocytes % 10.2 Eosinophils % 5.6 H Basophils % 1.1 Nucleated RBC % 0 PT with INR INR Sodium 139 Potassium 3.3 L Chloride 101 Carbon Dioxide 30 Anion Gap 8 BUN 28 H Creatinine 4.8 H Creat Clearance w eGFR 9.38 POC Glucometer 122 Random Glucose 81 Calcium 9.4 Phosphorus 6.2 H Magnesium 2.2 08/07/18 08/07/18 08/07/18 06:00 06:45 08:18 WBC RBC Hgb Hct MCV MCH MCHC RDW Plt Count MPV Absolute Neuts (auto) Neutrophils % Lymphocytes % Monocytes % Eosinophils % Basophils % Nucleated RBC % PT with INR 13.40 H INR 1.13 H Sodium Potassium Chloride Carbon Dioxide Anion Gap BUN Creatinine Creat Clearance w eGFR POC Glucometer 94 97 Random Glucose Calcium Phosphorus Magnesium 08/07/18 11:06 WBC RBC Hgb Hct MCV MCH MCHC RDW Plt Count MPV Absolute Neuts (auto) Neutrophils % Lymphocytes % Monocytes % Eosinophils % Basophils % Nucleated RBC % PT with INR INR Sodium Potassium Chloride Carbon Dioxide Anion Gap BUN Creatinine Creat Clearance w eGFR POC Glucometer 99 Random Glucose Calcium Phosphorus Magnesium HOSPITAL COURSE: Date of Admission:07/27/18 Date of Discharge: 08/07/18 Discharge Summary Reason For Visit: MISSED DIALYSIS/SHORTNESS OF BREATH/CONGESTIVE Condition: Stable - Instructions Diet, Activity, Other Instructions: You came to the hospital with complaints of shortness of breath, abdominal pain and having missed your dialysis sessions. We arranged for you to get dialysis while you were here, you had 6 sessions in total. For your shortness of breath, we gave you nebulizer treatments and an inhaler, in addition we gave you a medicine to reduce the swelling in your legs and your breathing improved. In regards to your abdominal pain, we had a tree deadener come and evaluate you- he suggested you get a cat scan of your abdomen to further evaluate what was causing your pain. The cat scan did show an abnormality on your right colon - you underwent a colonoscopy, which showed some polyps that the gastroentrologist took biopsy samples of and you also underwent an upper endoscopy which showed some area of esophageal varices and some area that required some sampling. He also is recommending you take the medication, pantoprazole 20 mg, which is used to treat to high levels of stomach acid, everyday for 8 weeks. We had your oncologist, Dr Dumont, come and evaluate you and he suggested that you follow up with him as an outpatient in a few weeks. Your breathing improved, you continued on your dialysis schedule, and your abdominal pain diminished- you were stable enough to be discharged. However, it is very important that you have strict follow-ups with the following physicians : Referrals: -We are referring you to the [facility] and advise that you make an appointment and follow up in one week -We advise that you follow up with the tree deadener Dr. Galvan in one to two weeks -we advise that you follow up with Dr Dumont -Follow up with your psychiatrist for further evaluation and monitoring. You were started on new medications here that may require adjusting. If you do not have one information on the one you saw here has been provided. IN addition, please go to your scheduled dialysis sessions Please resume all of your home medications in addition: -Please take Pantoprazole 20mg daily for 8 weeks -please take cymbalta 20mg daily Please stop taking your insulin as your sugars were well controlled here. Continue to check your sugars before each meal and at bedtime and document your readings, Bring this with you to your doctors appointment to see if you need medication for your sugars. Continue to follow a diabetic diet. Avoid taking NSAID and like products (ibuprofen, aleive, naproxen, etc) *if you begin to experience any chest pain, shortness of breath, nausea, vomiting fevers please return to the emergency room immediately Referrals: Naresh Lim MD [Staff Physician] - Hina Sellers MD [Staff Physician] - Artie Galvan DO [Staff Physician] - Red Dumont MD [Staff Physician] - Disposition: HOME - Home Medications Comprehensive Discharge Medication List: Ambulatory Orders Albuterol Sulfate Inhaler - [Ventolin HFA Inhaler -] 2 inh PO Q6H PRN 10/07/17 Amlodipine Besylate [Norvasc -] 10 mg PO DAILY 10/07/17 Albuterol 0.083% Nebulizer [place] [Ventolin 0.083% Nebulizer Soln -] 1 amp NEB Q4H PRN #1 amp 10/09/17 Insulin (Levemir) [Levemir Vial] 30 units SQ AM #1 vial 10/09/17 Salmeterol/Fluticasone [Advair 500Mcg/50Mcg -] 1 inh IH BID #1 inh 10/09/17 Duloxetine HCl [Cymbalta -] 20 mg PO DAILY 30 Days #30 capsule. 08/07/18 Pantoprazole Sodium [Protonix -] 20 mg PO DAILY 60 Days #60 tablet.ec 08/07/18 Problem List - Problems (1) Anxiety Code(s): F41.9 - ANXIETY DISORDER, UNSPECIFIED (2) Asthma Code(s): J45.909 - UNSPECIFIED ASTHMA, UNCOMPLICATED (3) Chronic renal insufficiency Code(s): N18.9 - CHRONIC KIDNEY DISEASE, UNSPECIFIED (4) Missed dialysis Code(s): [id number] - (5) Asthma exacerbation Code(s): J45.901 - UNSPECIFIED ASTHMA WITH (ACUTE) EXACERBATION Qualifiers: Asthma severity: moderate Asthma persistence: persistent Qualified Code(s ): J45.41 - Moderate persistent asthma with (acute) exacerbation - Discharge Referral Referred to [facility] Med P.C.: No
--- NOTE | 2018-08-08 18:50 | PATH ---
Surgical Pathology Report Patient Name: AISHA RENEE Med. Rec. #: [id number] /Age/Gender: 1960 (Age: 58) / F Account: [id number] Location: [facility] MED/SURG Taken: 08/06/2018 Received: 08/07/2018 Reported: 08/08/2018 Physicians: Jose J Galvan D.O. PHYSICIAN EMERGENCY DEPT Specimen(s) Received A: BX RIGHT COLON POLYP B: POLYP SIGMOID C: RECTAL SIGMOID POLYPS D: BX RECTUM Clinical History Abdominal pain, abnormal CT scan Postoperative diagnosis: Colon polyp, proctitis Final Diagnosis A. COLON, RIGHT, POLYP, POLYPECTOMY: TUBULAR ADENOMA. B. SIGMOID COLON, POLYP, BIOPSY: HYPERPLASTIC POLYP. C. RECTOSIGMOID COLON, POLYPS, BIOPSY: HYPERPLASTIC POLYP(S). D. RECTUM, BIOPSY: HYPERPLASTIC POLYP. Electronically Signed Cristin Culver M.D. Gross Description A. Received in formalin, labeled "right colon polyp" is a hayden, polypoid portion of soft tissue measuring 0.7 cm. in greatest dimension. The specimen is submitted in toto in one cassette. B. Received in formalin, labeled "sigmoid colon polyp" are 2 hayden, irregular portions of soft tissue measuring 0.2 and 0.3 cm. in greatest dimension. The specimens are submitted in toto in one cassette. C. Received in formalin, labeled "rectosigmoid polyps" are 4 hayden, irregular portions of soft tissue ranging from 0.1-0.4 cm. in greatest dimension. The specimens are submitted in toto in one cassette. D. Received in formalin, labeled "rectum biopsy" are 2 hayden, irregular portions of soft tissue measuring 0.3 and 0.4 cm. in greatest dimension. The specimens are submitted in toto in one cassette. 08/07/2018 [place]08/07/2018
--- NOTE | 2018-08-10 15:52 | PATH ---
Surgical Pathology Report Patient Name: AISHA RENEE [facility]. Rec. #: [id number] /Age/Gender: 1960 (Age: 58) / F Account: [id number] Location: [facility] MED/SURG Taken: 08/07/2018 Received: 08/07/2018 Reported: 08/10/2018 Physicians: Gena Figueroa M.D. Specimen(s) Received A: BX ANTRUM EROSIONS B: BX ANGULARIS C: BX BODY Clinical History Abdominal pain, varices Postoperative diagnosis: Gastritis, varices of esophagus Final Diagnosis A. ANTRAL EROSIONS, BIOPSY: MODERATE CHRONIC GASTRITIS WITH INTESTINAL METAPLASIA. IMMUNOSTAIN IS NEGATIVE FOR H. PYLORI ORGANISMS. B. ANGULARIS, BIOPSY: MODERATE CHRONIC GASTRITIS WITH INTESTINAL METAPLASIA. IMMUNOSTAIN IS NEGATIVE FOR H. PYLORI ORGANISMS. C. BODY OF STOMACH, BIOPSY: MILD CHRONIC GASTRITIS. IMMUNOSTAIN IS NEGATIVE FOR H. PYLORI ORGANISMS. Electronically Signed Magda Magallon M.D. Gross Description A. Received in formalin, labeled "biopsy antral erosions" are 3 hayden, irregular portions of soft tissue ranging from 0.1-0.3 cm. in greatest dimension. The specimens are submitted in toto in one cassette. B. Received in formalin, labeled "biopsy angularis" is a hayden, irregular portion of soft tissue measuring 0.4 cm. in greatest dimension. The specimen is submitted in toto in one cassette. C. Received in formalin, labeled "biopsy body of stomach" are 3 hayden, irregular portions of soft tissue ranging from 0.2-0.3 cm. in greatest dimension. The specimens are submitted in toto in one cassette. 08/07/2018 [facility]08/07/2018
== END 2018-08-07 14:36 | disposition home or self-care (01) | DRG 194 ==
LOC: JER 17:59 → JERBED 21:51 → J7W 07-28 02:34
PROVIDERS: ADMIT Internal Medicine; ATTEND Internal Medicine
PROC: 5A1D70Z Performance of Urinary Filtration, Intermittent, Less than 6 Hours Per Day (ICD-10-PCS; 2018-07-28)
PROC: 5A1D70Z Performance of Urinary Filtration, Intermittent, Less than 6 Hours Per Day (ICD-10-PCS; 2018-07-30)
PROC: 5A1D70Z Performance of Urinary Filtration, Intermittent, Less than 6 Hours Per Day (ICD-10-PCS; 2018-08-01)
PROC: 5A1D70Z Performance of Urinary Filtration, Intermittent, Less than 6 Hours Per Day (ICD-10-PCS; 2018-08-03)
PROC: 0DBF8ZX Excision of Right Large Intestine, Via Natural or Artificial Opening Endoscopic, Diagnostic (ICD-10-PCS; 2018-08-06)
PROC: 0DBN8ZX Excision of Sigmoid Colon, Via Natural or Artificial Opening Endoscopic, Diagnostic (ICD-10-PCS; 2018-08-06)
PROC: 0DBP8ZX Excision of Rectum, Via Natural or Artificial Opening Endoscopic, Diagnostic (ICD-10-PCS; 2018-08-06)
PROC: 5A1D70Z Performance of Urinary Filtration, Intermittent, Less than 6 Hours Per Day (ICD-10-PCS; 2018-08-06)
PROC: 30233R1 Transfusion of Nonautologous Platelets into Peripheral Vein, Percutaneous Approach (ICD-10-PCS; 2018-08-06)
PROC: 0DBP8ZX Excision of Rectum, Via Natural or Artificial Opening Endoscopic, Diagnostic (ICD-10-PCS; principal; 2018-08-06 11:45)
PROC: 0DB68ZX Excision of Stomach, Via Natural or Artificial Opening Endoscopic, Diagnostic (ICD-10-PCS; 2018-08-07)
DX: I13.2 Hypertensive heart and chronic kidney disease with heart failure and with stage 5 chronic kidney disease, or end stage renal disease (principal); E87.1 Hypo-osmolality and hyponatremia; F41.9 Anxiety disorder, unspecified; F14.10 Cocaine abuse, uncomplicated; G93.49 Other encephalopathy; I24.8 Other forms of acute ischemic heart disease; R10.9 Unspecified abdominal pain; D69.6 Thrombocytopenia, unspecified; K74.60 Unspecified cirrhosis of liver; D61.818 Other pancytopenia; F99 Mental disorder, not otherwise specified; J45.41 Moderate persistent asthma with (acute) exacerbation; F32.9 Major depressive disorder, single episode, unspecified; F41.8 Other specified anxiety disorders; I85.00 Esophageal varices without bleeding; E66.9 Obesity, unspecified; Z68.31 Body mass index [BMI] 31.0-31.9, adult; D63.1 Anemia in chronic kidney disease; D73.2 Chronic congestive splenomegaly; R93.89 Abnormal findings on diagnostic imaging of other specified body structures; K62.1 Rectal polyp; K29.70 Gastritis, unspecified, without bleeding; K64.8 Other hemorrhoids; E87.70 Fluid overload, unspecified; E11.22 Type 2 diabetes mellitus with diabetic chronic kidney disease; N18.6 End stage renal disease; Z99.2 Dependence on renal dialysis; Z85.09 Personal history of malignant neoplasm of other digestive organs; Z91.19 Patient's noncompliance with other medical treatment and regimen; Z90.49 Acquired absence of other specified parts of digestive tract
CPT/HCPCS: 36415; 36430; 71045-TC-FY; 74170-TC; 80048; 80053; 80076; 80307; 81003; 81015; 82105; 82378; 82607; 82728; 82747; 82962; 82977; 83540; 83550; 83605; 83615; 83690; 83735; 83880; 84100; 84155; 84156; 84165; 84439; 84443; 84484; 85014; 85025; 85027; 85044; 85610; 85730; 86301; 86704; 86706; 86708; 86803; 87086; 87186; 87340; 87804; 88305-TC; 93005; 93010; 93306-TC; 94640; 99284-25; J0885; P9034; P9038; Q9967